=== PATIENT | female | born 1940 | race Caucasian/White ===

== ENCOUNTER 2016-07-18 19:03 | Inpatient (IN) | payer MEDICARE, BC ==
[~2016-07-18] VITALS: Ht 167.6 cm; Wt 72.4 kg
[2016-07-18] VITALS (15 sets, daily range): BP systolic 119–155; BP diastolic 52–74; PULSE 102–111; RESP 20–50; TEMP 99–100.4; O2SAT 89–96; Ht 167.6 cm; Wt 72.4 kg
[~2016-07-18 19:03] MED LIST: AMLO5TAB2 PO; ASCO-297 PO; CALC600T12 PO; CHOL100017 PO; CYCL5TAB PO; DABI150C PO; DOCU-168 PO; FLUT1DIS4 IH; HYDR-3989 PO; IPRA3AMP AEROSOL; LANS15CA5 PO; MAGN400O4 PO; MULT1CAP47 PO; ROFL500T PO; SIMV20TA89 PO; SOTA80TA PO; VITA1CAP64 PO; ZOLE5INF7 IV
--- NOTE | 2016-07-18 19:05 | NUR ---
HEARING AID PT'S HEARING AID PLACED IN PT'S PURSE, FRONT POCKET.
--- OUTSIDE RECORDS SUMMARY | 2016-07-18 19:07 | XMS REPORT | Referral Summary ---
Author Author [facility] Organization [facility] Address Unknown Phone Unavailable Care Team Providers Care Leadership Program Internship Name Role Phone Adriana Guzman Primary Care Physician [phone] Encounter [facility] [id number] Date(s): 02/05/15 - 02/05/15 [facility] [address] [place] [address] [place] [address] [facility] Discharge Diagnosis: Mixed hearing loss, bilateral Discharge Disposition: 01-Home or Self Care Attending Physician: Lois Miranda Admitting Physician: Lois Miranda Vital Signs No data available for this section Problem List Condition Effective Dates Status Health Status Informant Mixed hearing loss, Active bilateral(Confirmed) perforated bowel 2013 Active during colonoscopy(Roeser)( Confirmed) Allergies, Adverse Reactions, Alerts Substance Reaction Severity Status penicillin Anaphylaxis Active Medications No data available for this section Results No data available for this section Immunizations No data available for this section Procedures Procedure Date Related Diagnosis Body Site right hemicolectomy(Beck)1 1perforated bowel during colonoscopy (Roeser) 2013 Social History No data available for this section Assessment and Plan No data available for this section
--- OUTSIDE RECORDS SUMMARY | 2016-07-18 19:07 | XMS REPORT | Referral Summary ---
Author Author [facility] Organization [facility] Address Unknown Phone Unavailable Care Team Providers Care Induction Heating Equipment Setter Name Role Phone Adriana Guzman Primary Care Physician [phone] Encounter [facility] [id number] Date(s): 02/05/15 - 02/05/15 [facility] [address] [place] [address] [place] [address] [facility] Discharge Diagnosis: Mixed hearing loss, [...]
--- OUTSIDE RECORDS SUMMARY | 2016-07-18 19:07 | XMS REPORT | Referral Summary ---
Author Author [facility] Organization [facility] Address Unknown Phone Unavailable Care Team Providers Care Restaurant Maintenance Technician Name Role Phone Adriana Guzman Primary Care Physician [phone] Encounter Date(s): 04/23/15 - 04/23/15 [facility] [address] [place] [address] [place] [address] - Discharge Diagnosis: Mixed hearing loss, bilateral Discharge Disposition: 01-Home or Self Care Attending Physician: Lios Miranda Admitting Physician: Lois Miranda Referring Physician: Mark Alvarenga MD Vital Signs No data available for this [...]
--- OUTSIDE RECORDS SUMMARY | 2016-07-18 19:07 | XMS REPORT | Referral Summary ---
Author Organization Unknown Address Unknown Phone Unavailable Care Team Providers Care Associate Chemist Name Role Phone Adriana Guzman Primary Care Physician [phone] Encounter [facility] [id number] Date(s): 05/09/14 - 05/09/14 [facility] [place] [address] [place] [address] [place] [address] - Discharge Diagnosis: Mixed hearing loss, bilateral Discharge Disposition: Home or Self Care Attending Physician: Lois Miranda Admitting Physician: Lois Miranda Referring Physician: Flynn Guzman DO Vital Signs No data available for this section Problem List Condition Effective Dates Status Health Status Informant Mixed hearing loss, Active bilateral(Confirmed) Allergies, Adverse Reactions, Alerts Substance Reaction Severity Status penicillin Anaphylaxis Active Medications No data available for this section Results No data available for this section Immunizations No data available for this section Procedures No data available for this section Social History No data available for this section Assessment and Plan No data available for this section
--- OUTSIDE RECORDS SUMMARY | 2016-07-18 19:07 | XMS REPORT | Referral Summary ---
Author Author [facility] Organization [facility] Address Unknown Phone Unavailable Care Team Providers Care Eap Consultant Name Role Phone Adriana Guzman Primary Care Physician [phone] Encounter Date(s): 06/09/16 - 06/09/16 [facility] [address] [place] [address] [place] [address] - Discharge Diagnosis: Mixed hearing loss, bilateral Discharge Disposition: 01-Home or Self Care Attending Physician: Lois Miranda Admitting Physician: Lois Miranda Referring Physician: Mark Alvarenga MD Vital Signs No data available for this section Problem List Condition Effective Dates Status Health Status Informant Mixed hearing loss, Active bilateral(Confirmed) perforated bowel 2012 Active during colonoscopy(Roeser)( Confirmed) Allergies, Adverse Reactions, [...]
--- NOTE | 2016-07-18 19:10 | NUR ---
PROVIDER AT BEDSIDE
[2016-07-18] MEDS ORDERED: ALBUTEROL/IPRATROPIUM INHAL. 2.5mg-0.5mg/3ml Neb. AEROSOL ONE (19:15)
--- NOTE | 2016-07-18 19:21 | ERPDOC ---
Departure Disposition Decision Date: Jul 18, 2016 Disposition Decision Time: 20:40 (JEREMIE HOWARD APRN) Disposition: 02 TO [facility] Impression Impression (JEREMIE HOWARD APRN) Impression: Primary Impression: CAP (community acquired pneumonia) Additional Impression: Acute respiratory failure with hypoxia Severity: Moderate (JEREMIE HOWARD APRN) Condition: Improved Seen By: Mid-level only (JEREMIE HOWARD APRN) Referrals: ROMA HAQUE DO (Family) Problems/Meds/Labs Reviewed?: Yes Medications reviewed and manag: Yes (JEREMIE HOWARD APRN) Follow up care ordered?: Yes (admitted) Mental Status: Alert, Oriented (JEREMIE HOWARD APRN) HPI - Respiratory General General Stated Complaint: DIFF BREATHING Time Seen by Provider: 19:09 Source: patient, EMS Exam Limitations: no limitations (JEREMIE HOWARD APRN) Time Seen by Provider: 19:09 (AUGUSTRHONDA DO) HPI - Respiratory General Initial Comments Roseline is a 75 year old female who has a history of COPD and is o2 dependent normally at 4 liters/nc. Patient began having increased difficulty breathing today progressively around 1 pm. Takes nebulized treatments at home and they didn't seem to help anymore. This evening called 911 to bring her to the hospital to get checked out. On scene, Deli Manager reports sats 81% on 4 liters. She was increased to 10 liters after a nebulized treatment of albuterol and sats were then 96% although patient remained tachypneic. Patient reports some improvement after the treatment. SoluMedrol 125 mg was given IV en route. Denies any fevers recently. Did cough some yellow sputum this am. Denies chest pain. Did get flu shot this year. Occurred At: home Onset: Getting worse Prior Episodes/Possible Cause: frequent episodes, chronic episodes Modifying Factors: IMPROVES WITH: inhaler, nebulizer Associated Symptoms: cough, shortness of breath, DENIES: chest pain/soreness, fever/chills (JEREMIE HOWARD APRN) Allergies: Coded Allergies: Penicillins (Verified Allergy, Severe, 07/19/16) Lip and tongue swelling, neck edema Past History Past Medical History Metabolic: hypercholesterolemia, hypertension Cardiac: A-fib Respiratory: COPD, pneumonia GI: GERD, other (barretts esophagus) Musculoskeletal: back pain (HOWARD,JEREMIE OPHTHALMIC MEDICAL ASSISTANT) Surgical History General: back, other (bowel perf), tonsils Reproductive/: hysterectomy (ANITAJEREMIE OPHTHALMIC MEDICAL ASSISTANT) Family History Family PMH: FOUND: hypertension (HOWARDJEREMIE OPHTHALMIC MEDICAL ASSISTANT) Vaccines Hx Influenza Vaccination: Yes Hx Pneumococcal Vaccination: Yes (MARIETTA HOWARDARA OPHTHALMIC MEDICAL ASSISTANT) Social History Smoking Status: Former smoker Substance Use Type: does not use Alcohol Intake: none Household Members: family Current Occupational Status: retired (JEREMIE HOWARD OPHTHALMIC MEDICAL ASSISTANT) Review of Systems Constitutional Constitutional: DENIES: fever (HOWARD,JEREMIE OPHTHALMIC MEDICAL ASSISTANT) Cardiovascular Cardiac: dyspnea on exertion, DENIES: chest pain (HOWARD,JEREMIE OPHTHALMIC MEDICAL ASSISTANT) Pulmonary Respiratory: cough, dyspnea, sputum (yellow) (ANITAJEREMIE OPHTHALMIC MEDICAL ASSISTANT) GI Upper Abdomen: DENIES: vomiting Lower Abdomen: DENIES: diarrhea (HOWARD,JEREMIE OPHTHALMIC MEDICAL ASSISTANT) General: DENIES: dysuria (HOWARD,JEREMIE OPHTHALMIC MEDICAL ASSISTANT) Musculoskeletal General: DENIES: pain (MARIETTA HOWARDARA OPHTHALMIC MEDICAL ASSISTANT) Neurological General: DENIES: headache (HOWARDJEREMIE OPHTHALMIC MEDICAL ASSISTANT) All other Systems All Other Systems: Reviewed and Negative (MARIETTA HOWARDARA OPHTHALMIC MEDICAL ASSISTANT) Physical Exam General General Nourishment: well nourished, well developed, appears stated age, acute distress (moderate respiratory) (MARIETTA HOWARDARA OPHTHALMIC MEDICAL ASSISTANT) Vitals and Pain First Documented Vital Signs Date Time Temp Pulse Resp B/P Pulse Ox O2 Delivery O2 Flow Rate FiO2 07/18/16 19:05 99.0 120 32 170/82 83 Nasal Cannula 5.00 (AUGUST,RHONDA M DO) Vitals and Pain Weight: Kilograms: Height (feet): 5 Height (inches): 3.00 Triage Pain Scale: (HOWARD,JEREMIE OPHTHALMIC MEDICAL ASSISTANT) Eyes (brief) Eyes Brief: found: PERRL, not found: scleral icterus (ANITAJEREMIE OPHTHALMIC MEDICAL ASSISTANT) ENMT (brief) ENMT Brief: FOUND: mucosa moist, NOT FOUND: nasal exudate, pharnyx erythema ( HOWARD,JEREMIE OPHTHALMIC MEDICAL ASSISTANT) Neck (brief) Neck: FOUND: trachea midline, NOT FOUND: thyromegaly (HOWARDJEREMIE OPHTHALMIC MEDICAL ASSISTANT) Respiratory (brief) Respiratory: FOUND: other (diminished-tachypnea) (JEREMIE HOWARD OPHTHALMIC MEDICAL ASSISTANT) Cardiovascular (brief) Cardiac: FOUND: regular rate, regular rhythm (JEREMIE HOWARD APRN) Abdomen (brief) Abdominal Brief: FOUND: bowel normo active x4, soft, NOT FOUND: tender (JEREMIE HOWARD OPHTHALMIC MEDICAL ASSISTANT) Lymphatic (brief) Lymphatic Brief: NOT FOUND: lymphedema (JEREMIE HOWARD OPHTHALMIC MEDICAL ASSISTANT) Integumentary (brief) Integumentary Brief: FOUND: dry, pink, warm, NOT FOUND: rash (JEREMIE HOWARD OPHTHALMIC MEDICAL ASSISTANT) Psychiatric (brief) Psychiatric Brief: FOUND: alert, attentive, normal affect, oriented (JEREMIE HOWARD APRN) Differential Diagnoses Differential Diagnoses Considering: Acute Bronchitis, Acute ND, CHF, COPD Exacerbation, Viral Syndrome (JEREMIE HOWARD APRN) Progress Results/Orders Orders Procedure Category Date Status Time Bmp - Basic Metabolic LAB 07/18/16 Complete Panel 19:14 Probnp LAB 07/18/16 Complete 19:14 Cbc W/Auto LAB 07/18/16 Complete Diff-Reflex Manual 19:14 Troponin I W LAB 07/18/16 Complete Hemolysis Index 19:14 EKG EKG 07/18/16 Taken 19:14 Chest, Pa & Lateral RAD 07/18/16 Resulted 19:14 Iv Lock (Ed Only) EDM 07/18/16 Transmitted 19:14 Albuterol/Ipratropium PHA 07/18/16 Complete (Duoneb) 19:15 Oxygen Administration EDM 07/18/16 Transmitted 19:14 Blood Gas, Arterial - LAB 07/18/16 Complete ABG Lactate - Lactic Acid LAB 07/18/16 Complete Lactate - Lactic Acid LAB 07/19/16 Complete 00:35 Blood Culture RAOUL 07/18/16 In Process 20:05 Procalcitonin LAB 07/18/16 Complete 20:12 Levofloxacin 750 Mg PHA 07/18/16 Complete Ivpb (Levaquin 750 M 20:30 Normal Saline (Normal PHA 07/18/16 Complete Saline Iv) 20:45 Place In Facility As: ADMIT 07/18/16 Transmitted Ua, Dip Wreflex LAB 07/18/16 Complete Microsc & Fiscal Accountant 20:51 (AUGUST,RHONDA M DO) Lab Results Laboratory Tests Test 07/18/16 19:34 07/18/16 20:15 07/18/16 20:19 White Blood Count 17.7T/MM3 Red Blood Count 4.53M/MM3 Hemoglobin 13.2GM/DL Hematocrit 42.1% Mean Corpuscular Volume 92.9UM3 Mean Corpuscular Hemoglobin 29.1UUG Mean Corpuscular Hemoglobin Concent 31.4GM/DL RDW Standard Deviation 46.6FL Platelet Count 222T/MM3 Mean Platelet Volume 9.8UM3 Immature Granulocyte % (Auto) % Neutrophils (%) (Auto) % Lymphocytes (%) (Auto) % Monocytes (%) (Auto) % Eosinophils (%) (Auto) % Basophils (%) (Auto) % Absolute Immature Granulocyte (auto T/MM3 Absolute Neutrophils (auto) T/MM3 Absolute Lymphocytes (auto) T/MM3 Absolute Monocytes (auto) T/MM3 Absolute Eosinophils (auto) T/MM3 Absolute Basophils (auto) T/MM3 Neutrophils % (Manual) 86.0% Band Neutrophils % 2.0% Lymphocytes % (Manual) 9.0% Monocytes % (Manual) 2.0% Eosinophils % (Manual) 1.0% Absolute Neutrophils (Manual) 15.2T/MM3 Band Neutrophils # 0.4T/MM3 Lymphocytes # (Manual) 1.6T/MM3 Monocytes # (Manual) 0.4T/MM3 Eosinophils # (Manual) 0.2T/MM3 Red Cell Morphology Comment Normal Turbidity < 20 Sodium Level 147MEQ/L Potassium Level 4.1MEQ/L Chloride Level 104MEQ/L Carbon Dioxide Level 32MEQ/L Anion Gap 11MEQ/L Blood Urea Nitrogen 13.0MG/DL Creatinine 0.6MG/DL Glomerular Filtration Rate Calc 98 BUN/Creatinine Ratio 22RATIO Glucose Level 139MG/DL Calculated Osmolality 284MOSM/KG Calcium Level 9.7MG/DL Icterus Index < 2 Troponin I < 0.012ng/ml WF-Pkf-N-Type Natriuretic Peptide 318PG/ML Chemistry Specimen Hemolysis < 15 Arterial Blood pH 7.440 Arterial Blood Partial Pressure CO2 44MMHG Arterial Blood pO2 at Patient Temp 71MMHG Arterial Blood HCO3 30MEQ/L Arterial Blood Total CO2 31.3MEQ/L Arterial Blood Oxygen Saturation 95.0% Arterial Blood Base Excess 5.1MMOL/L Oxygen Delivery Method (LAB) Nrb mask, % Blood Gas Oxygen Liter Flow 10 Blood Gas Oxygen Percent Given Blood Gas Vent Rate Blood Gas Tidal Volume ML Plasma Lactate 1.5MMOL/L Procalcitonin < 0.05NG/ML () Medications Current ED Medications Albuterol/ Ipratropium 3 ml 3 ml O ONCE AEROSOL Last administered on 07/18/16 19:37; Start 07/18/16 at 19:15; Stop 07/18/16 at 19:17; Status DC Levofloxacin 750 mg/Dextrose/Water 150 ml @ 100 mls/hr O ONCE IV Last administered on 07/18/16 20:45; Start 07/18/16 at 20:30; Stop 07/19/16 at 06:22; Status DC Sodium Chloride (Normal Saline IV) 1,000 ml @ 999 mls/hr Q1H1M ONCE IV Last administered on 07/18/16 20:49; Start 07/18/16 at 20:45; Stop 07/19/16 at 06:21; Status DC () Progress Progress 2039 - Patient is somewhat better- able to answer questions in few words now but remains tachypneic with o2 at 10 liters to maintain in 90s. Full Code verified by patient-indicates would want intubated if necessary. bolus saline started (1 liter)-no prior history CHF. Lactate, procal pending. BC ordered. Levaquin 750 mg ordered. (JEREMIE HOWARD APRN) EKG EKG : Rate: >100 Rhythm: sinus [place]: normal QRS: normal Intervals: normal ST/T: depressed (v4-v5) Interpreted by: signing physician (JEREMIE HOWARD APRN) Consult/PCP Consult/PCP : Physician Contacted: Ihsan Time Called: 20:30 Time of first response: 20:32 Type of discussion: Admit Discussion/PCP Discussion Details Admit CCU (JEREMIE HOWARD APRN) Xray Xray : Xray: CXR PA/Lat Interpretation: Abnormal (increased intraparenchymal infiltrates), Interpreted by Me (JEREMIE HOWARD APRN) JEREMIE HOWARD APRN Jul 18, 2016 19:21 AUGUST,RHONDA Suh Jul 21, 2016 03:46
[2016-07-18] MEDS ORDERED: IPRA3AMP AEROSOL (19:34)
[2016-07-18] MEDS ORDERED: AMLO10TA2 PO (19:34)
--- NOTE | 2016-07-18 19:35 | NUR ---
RT TO BEDSIDE
[2016-07-18 19:48] LABS: ANION GAP 11 MEQ/L (5-15); BUN/CREATININE RATIO 22 RATIO (6-26); CALCIUM 9.7 MG/DL (8.4-10.2); CHLORIDE 104 MEQ/L (98-107); CO2 - CARBON DIOXIDE 32 MEQ/L (22-30); CREATININE 0.6 MG/DL (0.7-1.2); GLOMERULAR FILTRATION RATE 98; GLUCOSE 139 MG/DL (65-110); POTASSIUM 4.1 MEQ/L (3.6-5); SODIUM 147 MEQ/L (134-144)
[2016-07-18 19:49] LABS: HCT - HEMATOCRIT 42.1 % (36-46); HGB - HEMOGLOBIN 13.2 GM/DL (12-16); MEAN CORPUSCULAR HGB 29.1 UUG (26-34); MEAN CORPUSCULAR HGB CONC(MCHC 31.4 GM/DL (31-37); MEAN CORPUSCULAR VOLUME 92.9 UM3 (80-100); MEAN PLATELET VOLUME 9.8 UM3 (9.4-12.4); RED BLOOD COUNT 4.53 M/MM3 (4.00-5.20); WBC - WHITE BLOOD COUNT 17.7 T/MM3 (4.5-11.0)
--- NOTE | 2016-07-18 19:50 | NUR ---
IMAGING PT TO IMAGING VIA CART AT THIS TIME. O2 AND NON-REBREATHER IN PLACE. PT AOX3.
--- NOTE | 2016-07-18 20:00 | NUR ---
IMAGING PT RETURN FROM IMAGING VIA CART. [address] PT AOX3. DENIES NEEDS AT THIS TIME.
[2016-07-18 20:03] LABS: BAND NEUTROPHILS # 0.4 T/MM3; EOSINOPHILS # (MANUAL) 0.2 T/MM3 (0-0.5); LYMPHOCYTES # (MANUAL) 1.6 T/MM3 (1-4.8); MONOCYTES # (MANUAL) 0.4 T/MM3 (0-0.8); NEUTROPHILS #(MANUAL)-ABSOLUTE 15.2 T/MM3 (1.8-7.7); TOTAL CELLS COUNTED 100 %
--- NOTE | 2016-07-18 20:05 | NUR ---
RT RT TO BEDSIDE FOR ABG
[2016-07-18 20:11] LABS: PROBNP 318 PG/ML (0-175)
--- NOTE | 2016-07-18 20:18 | NUR ---
PROVIDER AT BEDSIDE
[2016-07-18] MEDS ORDERED: LEVOFLOXACIN 750 mg IVPB 750 MG in D5W 150 ML IV ONE (20:30)
[2016-07-18] MEDS ORDERED: NORMAL SALINE 1,000 ML IV ONE (20:45)
[2016-07-18 20:58] LABS: BLOOD, URINE TRACE-LYSED (NEGATIVE); COLOR,URINE YELLOW (YELLOW); LEUKOCYTE ESTERASE ,URINE NEGATIVE (NEGATIVE); NITRITE,URINE NEGATIVE (NEGATIVE); UROBILINOGEN,URINE 0.2 EU/DL (NORMAL)
[2016-07-18] MEDS ORDERED: DiphenhydrAMINE 50 MG/ML INJECTION IV ONE (21:15)
[2016-07-18] MEDS ORDERED: MORPHINE SULFATE 2 MG SYRINGE IV PRN (21:30)
[2016-07-18] MEDS ORDERED: MILK OF MAGNESIA 30 ML SUSP PO PRN (21:30)
[2016-07-18] MEDS ORDERED: PROMETHAZINE 25 MG INJECTION IV PRN (21:30)
--- NOTE | 2016-07-18 21:30 | NUR ---
ADMIT TO CCU PT TO CCU #2 AT THIS TIME. PT INDEPENDENTLY TRANSFERRED FROM CART TO WHEEL CHAIR TO CCU BED. AOX3. 10L/NONREBREATHER. IV ANTIBIOTICS INFUSING. RN TO ASSUME CARE AT BEDSIDE. FAMILY AT BEDSIDE.
--- NOTE | 2016-07-18 21:30 | NUR ---
ADMIT TO CCU 2 PER W/C. PT ALERT AND ORIENT BUT SOA. ON NONREBREATHER MASK. HOB UP. SISTERS WITH PT.
--- NOTE | 2016-07-18 22:00 | NUR ---
TELEMEDICINE SAW PT. PT WAS ABLE TO TALK WITH DR ESCOBAR. GIVEN STATUS REPORT.ON 02 6L/NC AT PRESENT. SATS 90-91%
--- NOTE | 2016-07-18 22:22 | HPPDOC ---
BRITTA MONCADA MD 07/18/16 2222: HPI - Adult Date DATE: 07/18/16 TIME: 22:21 General Chief Complaint: shortness of breath History of Present Illness Very pleasant 75-year-old white female who was in her usual state of health until today. She woke this morning, had a minimal amount of sputum, later on today around 1 PM she began having increasing weakness of breath. She denies any increasing sputum at that time, she admits to orthopnea but that is not new and she baseline has fairly significant dyspnea on exertion. She tried nebulized bronchodilators at home but did not improve. She lives with her [id number]-mup, he called 911, and they found her to be saturating 81% on 4 L, she is at baseline on 4 L typically. En route she received 2 more nebulized bronchodilator treatments and the dose of Solu-Medrol. Upon arrival to the emergency room she was needing 10.5 L of oxygen to maintain her sats are 90%. She denies any chest pain, she denies knowledge of fever prior to this evening, she has minimal sputum production she did feel cold. At baseline she has some significant back pain from previous spinal disease but nothing beyond her baseline. After treatments in the emergency room and EMS she does feel better but is still not sure how good she would feel with walking. She does have a pulmonary physician, she uses BiPAP to sleep with it only needs the 4 L of oxygen, no more. In the emergency room blood cultures were drawn and she was she has not yet taken her evening medications Past Medical History Past Medical History COPD on 4 L of oxygen at baseline quit smoking 5 years ago 70-gfic-btvo history atrial fibrillation (on dabigatran for stroke prophylaxis) chronic back pain issues with hx compression fx and disc herniation s/p surgery HTN GERD hyperlipidemia Surgical History Patient's Surgical History: back surgery - disc(?) and vertebroplasty ruptured viscous during colonoscopy required ex lap Current Medications Home Meds Reported Medications Amlodipine Besylate (Amlodipine Besylate) 10 Mg Tablet, 10 MG PO DAILY 07/18/16 Ipratropium/Albuterol Sulfate (Iprat-Albut 0.5-3(2.5) mg/3 ml) 3 Ml Ampul.neb, 1 UNIT AEROSOL QID 07/18/16 Lansoprazole (Prevacid) 15 Mg Capsule.dr, 15 MG PO DAILY 11/30/15 Calcium Carbonate (Calcium) 600 Mg Tablet, 1200 MG PO DAILY 11/23/15 Dabigatran Etexilate Mesylate (Pradaxa) 150 Mg Capsule, 150 MG PO BID 11/23/15 Zoledronic Acid (Reclast 5 mg/100 ml Solution) 5 Mg/100 Ml Ml, 100 ML IV YEARLY 11/23/15 Sotalol HCl (Sotalol) 80 Mg Tablet, 80 MG PO BID 11/23/15 Roflumilast (Daliresp) 500 Mcg Tablet, 500 MCG PO DAILY 12/23/12 Cholecalciferol (Vitamin D) 1,000 Unit Tablet, 1000 UNIT PO DAILY 12/22/12 Simvastatin (Simvastatin) 20 Mg Tablet, 20 MG PO HS 06/08/12 Vitamin B Complex (Vitamin B Complex) 1 Cap Capsule, 1 CAP PO DAILY 11/29/08 Ascorbic Acid (Vitamin C) 1,000 Mg Tablet, 1000 MG PO DAILY 11/29/08 Multivitamins W-Minerals (Multivitamin) 1 Cap Capsule, 1 CAP PO DAILY 11/29/08 Fluticasone/Salmeterol (Advair 250/50) 28 Puff/Disk Inhaler, 2 PUFF IH BID 11/29/08 Allergies: Coded Allergies: Penicillins (Verified Allergy, Unknown, 07/19/16) Family History Family History: asked and N/c Social History Smoking Status: Former smoker Substance Use Type: does not use Alcohol Intake: none Marital Status: Household Members: family Current Occupational Status: retired Advance Directives: Yes Full Code Review of Systems All Other Systems All Other Systems: Reviewed Physical Exam General General Nourishment: apparent age Vital Signs Vital Signs Date Time Temp Pulse Resp B/P Pulse Ox O2 Delivery O2 Flow Rate FiO2 07/18/16 22:08 91 Nasal Cannula 6.00 07/18/16 21:40 99.0 108 20 143/67 Height (Feet): 5 Height (Inches): 6.00 Telemetry Rhythm: Sinus Tachycardia Eyes Brief: FOUND: PERRL Respiratory Brief: FOUND: equal bilaterally Comments impaired air movement mod/severe she is tachycardic, tachypnea, but not using accessory muscles Cardiovascular (brief) Cardiac Brief: NOT FOUND: pedal edema Capillary Refill: <2 sec Comments tachy PVCs on ekg Abdomen (brief) Abdominal Brief: FOUND: BS normo active x4, soft, NOT FOUND: tender Musculoskeletal (brief) Musculoskeletal Brief: NOT FOUND: spasm, tenderness Neurologic (brief) Neurological Brief: FOUND: cranial 2-12 intact, motor, NOT FOUND: facial droop Neurologic RN Documented GCS Eye Opening: Verbal: Motor: Total: Psychiatric (brief) FOUND: alert, normal affect, oriented Comments beginning in complete sentences without obvious apparent shortness of breath Laboratory Laboratory Tests Test 07/18/16 19:34 07/18/16 20:15 07/18/16 20:19 07/18/16 20:54 White Blood Count 17.7T/MM3 Red Blood Count 4.53M/MM3 Hemoglobin 13.2GM/DL Hematocrit 42.1% Mean Corpuscular Volume 92.9UM3 Mean Corpuscular Hemoglobin 29.1UUG Mean Corpuscular Hemoglobin Concent 31.4GM/DL RDW Standard Deviation 46.6FL Platelet Count 222T/MM3 Mean Platelet Volume 9.8UM3 Immature Granulocyte % (Auto) % Neutrophils (%) (Auto) % Lymphocytes (%) (Auto) % Monocytes (%) (Auto) % Eosinophils (%) (Auto) % Basophils (%) (Auto) % Absolute Immature Granulocyte (auto T/MM3 Absolute Neutrophils (auto) T/MM3 Absolute Lymphocytes (auto) T/MM3 Absolute Monocytes (auto) T/MM3 Absolute Eosinophils (auto) T/MM3 Absolute Basophils (auto) T/MM3 Neutrophils % (Manual) 86.0% Band Neutrophils % 2.0% Lymphocytes % (Manual) 9.0% Monocytes % (Manual) 2.0% Eosinophils % (Manual) 1.0% Absolute Neutrophils (Manual) 15.2T/MM3 Band Neutrophils # 0.4T/MM3 Lymphocytes # (Manual) 1.6T/MM3 Monocytes # (Manual) 0.4T/MM3 Eosinophils # (Manual) 0.2T/MM3 Red Cell Morphology Comment Normal Turbidity < 20 Sodium Level 147MEQ/L Potassium Level 4.1MEQ/L Chloride Level 104MEQ/L Carbon Dioxide Level 32MEQ/L Anion Gap 11MEQ/L Blood Urea Nitrogen 13.0MG/DL Creatinine 0.6MG/DL Glomerular Filtration Rate Calc 98 BUN/Creatinine Ratio 22RATIO Glucose Level 139MG/DL Calculated Osmolality 284MOSM/KG Calcium Level 9.7MG/DL Icterus Index < 2 Troponin I < 0.012ng/ml HK-Jvn-N-Type Natriuretic Peptide 318PG/ML Chemistry Specimen Hemolysis < 15 Arterial Blood pH 7.440 Arterial Blood Partial Pressure CO2 44MMHG Arterial Blood pO2 at Patient Temp 71MMHG Arterial Blood HCO3 30MEQ/L Arterial Blood Total CO2 31.3MEQ/L Arterial Blood Oxygen Saturation 95.0% Arterial Blood Base Excess 5.1MMOL/L Oxygen Delivery Method (LAB) Nrb mask, % Blood Gas Oxygen Liter Flow 10 Blood Gas Oxygen Percent Given Blood Gas Vent Rate Blood Gas Tidal Volume ML Plasma Lactate 1.5MMOL/L Procalcitonin < 0.05NG/ML Urine Collection Type Urine Color Yellow Urine Turbidity Clear Urine pH 5.0 Urine Specific Callaway 1.020 Urine Protein Trace Urine Glucose (UA) Negative Urine Ketones 1+ Urine Blood Trace-lysed Urine Nitrite Negative Urine Bilirubin Negative Urine Urobilinogen 0.2EU/DL Urine Leukocyte Esterase Negative Urinalysis Comment Microscopic not ind. EKG reviewed, sinus tach with PVCs, did not note any acute ST-T wave changes Radiology I personally reviewed, is cardiomegaly, hyperexpanded lungs, I question of some pulmonary edema possibly versus some pulmonary fibrosis. Formal interpretation by radiology is pending. Please review that report once it is available Concerns For Adverse Events is needing initially much more oxygen than her baseline. She is doing well, is quite ill in general. I'm concerned she could be becoming septic, but technically does not meet criteria for sepsis at this time. Sepsis Diagnostic Criteria Sepsis Confirmed/Suspected Infection: Yes SIRS Criteria: Pulse >= 90 beats/min, WBC >=12,000 or <=4,000, RR > or = to 20 Severe Sepsis SpO2 <90% or ventilated Assessment & Plan Problems: (1) Acute respiratory failure with hypoxia Status: Acute Assessment & Plan: Her oxygen requirements were markedly higher than baseline at 10 L she is to get, and her ABG is notable. Fortunately. Continue IV steroids treatment for pneumonia and nebulized bronchodilators. BiPAP this evening should help things as well. SHe is currently a full code, (2) EXACERBATION COPD Status: Acute Assessment & Plan: IV solumedrol and nebs, abx (3) CAP (community acquired pneumonia) Status: Acute Assessment & Plan: possibly a retrocardiac/LLL infiltrate? IV levaquin x 1 so far, I am anxious re: QTc, and her being on sotalol has allergy to PCN but not sure The severity of reaction. Continue tx then with Invanz and monitor, confirm any hx anaphylaxis w PCN (4) Paroxysmal a-fib Status: Chronic Assessment & Plan: continue home meds, sotalol, pradaxa. (5) HTN (hypertension) Status: Chronic Code Status Full Code Hospital Course Summary Disclaimer The hospital course summary below is not to be considered part of the above Progress Note. BRE BREWSTER MD 07/19/16 1328: Past Medical History Current Medications Home Meds Reported Medications Amlodipine Besylate (Amlodipine Besylate) 10 Mg Tablet, 10 MG PO DAILY 07/18/16 Ipratropium/Albuterol Sulfate (Iprat-Albut 0.5-3(2.5) mg/3 ml) 3 Ml Ampul.neb, 1 UNIT AEROSOL QID 07/18/16 Lansoprazole (Prevacid) 15 Mg Capsule.dr, 15 MG PO DAILY 11/30/15 Calcium Carbonate (Calcium) 600 Mg Tablet, 1200 MG PO DAILY 11/23/15 Dabigatran Etexilate Mesylate (Pradaxa) 150 Mg Capsule, 150 MG PO BID 11/23/15 Zoledronic Acid (Reclast 5 mg/100 ml Solution) 5 Mg/100 Ml Ml, 100 ML IV YEARLY 11/23/15 Sotalol HCl (Sotalol) 80 Mg Tablet, 80 MG PO BID 11/23/15 Roflumilast (Daliresp) 500 Mcg Tablet, 500 MCG PO DAILY 12/23/12 Cholecalciferol (Vitamin D) 1,000 Unit Tablet, 1000 UNIT PO DAILY 12/22/12 Simvastatin (Simvastatin) 20 Mg Tablet, 20 MG PO HS 06/08/12 Vitamin B Complex (Vitamin B Complex) 1 Cap Capsule, 1 CAP PO DAILY 11/29/08 Ascorbic Acid (Vitamin C) 1,000 Mg Tablet, 1000 MG PO DAILY 11/29/08 Multivitamins W-Minerals (Multivitamin) 1 Cap Capsule, 1 CAP PO DAILY 11/29/08 Fluticasone/Salmeterol (Advair 250/50) 28 Puff/Disk Inhaler, 2 PUFF IH BID 11/29/08 Allergies: Coded Allergies: Penicillins (Verified Allergy, Unknown, 4/8/17) Sepsis Diagnostic Criteria Sepsis SIRS Criteria: Temp<=96.8 or >=100.4, Bands >= 10% Assessment & Plan Problems: (1) Acute and chronic respiratory failure with hypoxia Status: Acute (2) Severe sepsis (3) CAP (community acquired pneumonia) Status: Acute (4) EXACERBATION COPD Status: Acute (5) HTN (hypertension) Status: Chronic (6) Paroxysmal a-fib Status: Chronic (7) GERD (gastroesophageal reflux disease) Qualifiers: Esophagitis presence: with esophagitis Qualified Codes: K21.0 - Gastro- esophageal reflux disease with esophagitis Assessment Dr. Champagne's note reviewed. Patient interviewed and examined. CC-dyspnea HPI-Mrs. Morrison is a 75-year-old female with a history of COPD requiring home oxygen and nocturnal BiPAP. She developed progressive cough and exertional dyspnea yesterday without associated rhinorrhea, nasal congestion, sore throat, fever, chest pain, palpitations, or significant sputum production. She has chronic exertional dyspnea but symptoms worsened dramatically to dyspnea at rest and did not respond to nebulized treatments. Hypoxia was present when EMS arrived at her home yesterday evening requiring increasing oxygen from 4 L to 10 L. Overnight patient notes dyspnea has stabilized at rest but she remained short of breath with minimal activity including providing history or sitting on the edge of the bed. She reports low-grade fever overnight and feeling cold intermittently prior to hospitalization. Sputum production has increased overnight with purulent secretions. PH/SH/FH-above histories noted and as recorded with following additions: Osteoporosis, Connor's esophagus, paroxysmal atrial fibrillation, HEMANT/BSO-1999 , back surgery-, right hemicolectomy for cecal perforation March 2013. Tobacco discontinued 5 years ago, lives with extended family members. No DPOA/ full code. Extensive family history of coronary disease, sister with Crohn's, brother with COPD and further with colon cancer. ROS-comprehensive review of systems completed with patient described and chronic back pain and nausea 2 or 3 days prior to hospitalization which subsequently resolved. Remainder of review as per history of present illness or negative. EXAM [id number]-782.4, oxygen saturation 93% on 5 L, respiratory rate 30-39, slightly breathless while speaking, alert and cooperative HEENT-mild conjunctival injection, EOMI, PERRLA, conjugate gaze, sclera anicteric, facial structure symmetric, oral membranes clear and without exudate , tongue midline, neck supple without adenopathy Lungs-mild tachypnea, fair air flow with decreased breath sounds throughout, crackles at the bases bilaterally L>R and coarse breath sounds at the left base. No wheezing present at the time of my exam. Cardiac-regular rhythm, S1-S2 Abd-soft, nontender, no palpable mass, bowel sounds present Ext-without edema Skin-without rash Neuro-cranial nerves III through XII intact, motor tone and power within normal limits, no tremor, sensation intact to light touch 4 extremities Psych-calm, cooperative Chest x-ray reviewed by myself demonstrating infiltrate at the left base. White count 17.7 with 2% bands on admission, 11% bands present this morning. Sodium 147, creatinine 0.6, troponin undetectable, proBNP 138. Lactic acid 1.5 and 1.3. Blood gas 7.44/44/71/30 95% saturation on 10 L by nonrebreather mask EKG sinus rhythm without acute changes. Community acquired pneumonia with COPD exacerbation, acute on chronic hypoxic respiratory failure, and severe sepsis present on admission. Continue antibiotics as previously discussed. Patient describes penicillin causing swelling of her lips, tongue, and neck. Sputum culture to be obtained in addition to blood cultures drawn last night. Legionella and strep pneumonia urine antigens to be sent. Continue aggressive breathing treatments, steroids, oxygen and BiPAP as needed/ bedtime. Home medications for hypertension, reflux/Connor's, and history of atrial fibrillation resumed. Given improvement in oxygenation overnight-transfer the floor. Patient seen in cross coverage for Dr. Guzman. DVT Prophylaxis: other (Pradaxa) BRITTA MONCADA MD Jul 18, 2016 22:22 BRE BREWSTER MD Jul 19, 2016 13:28
[2016-07-18] MEDS ORDERED: SOTALOL 80 MG TABLET PO SCH (22:30)
--- NOTE | 2016-07-18 22:35 | NUR ---
OUTPUT UP TO COMMODE WITH ASSIST. MORE SOA WHEN UP. VOIDED 200CC.
[2016-07-18] MEDS: FLUTICASONE/SALMETEROL 250/50 DISK INHALER ORAL INH SCH (23:14)
[2016-07-18] MEDS: SIMVASTATIN 20 MG TABLET PO SCH (23:20)
[2016-07-18] MEDS: DABIGATRAN 150 MG CAPSULE PO SCH (23:21)
[2016-07-18] MEDS: HYDROCODONE/APAP 5 mg/325 mg TABLET PO PRN (23:24)
[2016-07-19] VITALS (41 sets, daily range): BP systolic 107–156; BP diastolic 53–85; PULSE 78–113; RESP 18–46; TEMP 96.8–98.9; O2SAT 88–97
[2016-07-19] MEDS: NORMAL SALINE 1,000 ML IV SCH ×2 (00:13→22:08)
--- NOTE | 2016-07-19 06:00 | NUR ---
STATUS STATES BACK PAIN IS GONE BUT NOT SLEEP WELL. REMAINS ON BIPAP AT 30%. SOA WITH ANY ACTIVITY. LOOSE SOUNDING COUGH, OCC PRODUCTIVE, YELLOW SPUTUM.
[2016-07-19] MEDS: SOTALOL 80 MG TABLET PO SCH ×2 (07:23→19:51)
[2016-07-19] MEDS: ALBUTEROL/IPRATROPIUM INHAL. 2.5mg-0.5mg/3ml Neb. AEROSOL SCH ×4 (07:32→21:03)
--- NOTE | 2016-07-19 07:45 | NUR ---
Bipap off to evaluate status and so patient can go to toilet at bedside.
[2016-07-19] MEDS: ROFLUMILAST 500 MCG TABLET PO SCH (08:48)
[2016-07-19] MEDS: DABIGATRAN 150 MG CAPSULE PO SCH ×2 (08:49→19:51)
[2016-07-19] MEDS: VITAMIN B COMP + C TABLET PO SCH (08:51)
[2016-07-19] MEDS: AMLODIPINE 10 MG TABLET PO SCH (08:52)
[2016-07-19] MEDS: CALCIUM CARBONATE 600 MG TABLET PO SCH (08:59)
[2016-07-19] MEDS: CHOLECALCIFEROL 1,000 UNIT TABLET PO SCH (09:00)
[2016-07-19] MEDS: ERTAPENEM 1 G in NORMAL SALINE 100 ML IV SCH (09:02)
[2016-07-19] MEDS: LANSOPRAZOLE SOLU-TAB 15 MG TABLET PO SCH (09:15)
--- NOTE | 2016-07-19 10:29 | NUR ---
CM THIS WORKER MET WITH PT AT THIS TIME. NO OTHERS PRESENT AT THIS TIME. PT REPORTED THAT HE WAS PLANNING TO RETURN HOME WHEN DISCHARGED. PT REPORTED THAT SHE HAS A BROTHER IN LAW THAT ALSO LIVES WITH HER. THIS WORKER INQUIRED REGARDING NEED FOR DME OR HOME HEALTH. PT INQUIRED REGARDING HOME HEALTH SERVICES. PT IS PLANNING TO CONSIDER HOME HEALTH. PT REPORTED THAT SHE HAS OXYGEN SUPPLY AT HOME THROUGH [facility]. THIS WORKER PROVIDED CONTACT INFORMATION FOR PT AND ENCOURAGED TO CONTACT THIS WORKER WITH ANY NEEDS.
[2016-07-19 10:57] LABS: HCT - HEMATOCRIT 38.3 % (36-46); HGB - HEMOGLOBIN 12.1 GM/DL (12-16); MEAN CORPUSCULAR HGB 29.4 UUG (26-34); MEAN CORPUSCULAR HGB CONC(MCHC 31.6 GM/DL (31-37); MEAN CORPUSCULAR VOLUME 93.2 UM3 (80-100); MEAN PLATELET VOLUME 10.8 UM3 (9.4-12.4); RED BLOOD COUNT 4.11 M/MM3 (4.00-5.20); WBC - WHITE BLOOD COUNT 17.4 T/MM3 (4.5-11.0)
[2016-07-19] MEDS: FLUTICASONE/SALMETEROL 250/50 DISK INHALER ORAL INH SCH ×2 (11:00→21:04)
[2016-07-19 11:07] LABS: ALBUMIN/GLOBULIN RATIO 1.5 RATIO (1.1-2.2); ALKALINE PHOSPHATASE 50 U/L (38-126); ALT (SGPT) 23 U/L (9-52); ANION GAP 15 MEQ/L (5-15); AST (SGOT) 15 U/L (14-36); BUN/CREATININE RATIO 14 RATIO (6-26); CHLORIDE 105 MEQ/L (98-107); CO2 - CARBON DIOXIDE 27 MEQ/L (22-30); CREATININE 0.7 MG/DL (0.7-1.2); GLOMERULAR FILTRATION RATE 82; GLUCOSE 200 MG/DL (65-110); POTASSIUM 4.2 MEQ/L (3.6-5); SODIUM 147 MEQ/L (134-144); TOTAL PROTEIN 6.6 G/DL (6.3-8.2)
[2016-07-19 11:15] LABS: BAND NEUTROPHILS # 1.9 T/MM3; LYMPHOCYTES # (MANUAL) 0.5 T/MM3 (1-4.8); MONOCYTES # (MANUAL) 0.7 T/MM3 (0-0.8); NEUTROPHILS #(MANUAL)-ABSOLUTE 14.3 T/MM3 (1.8-7.7); TOTAL CELLS COUNTED 100 %
--- NOTE | 2016-07-19 11:25 | NUR ---
Status Does own AM care, has been using bedside commode. ON 5L NC at this time.
--- NOTE | 2016-07-19 12:30 | NUR ---
Eats well, deneis severe pain, has some chronic back pain.
[2016-07-19] MEDS ORDERED: ALBUTEROL/IPRATROPIUM INHAL. 2.5mg-0.5mg/3ml Neb. AEROSOL PRN (13:30)
--- NOTE | 2016-07-19 17:25 | NUR ---
Transferred to Medical unit per wheelchair, tolerates well. Family with patient.
--- NOTE | 2016-07-19 17:25 | NUR ---
ARRIVAL PATIENT ARRIVED VIA WHEELCHAIR FROM CCU ACCOMPANIED BY FAMILY AND CCU RN. PATIENT IN NO ACUTE DISTRESS ON 5L O2 PER NC. PATIENT DENIES NEEDS AT THIS TIME. WILL CONTINUE TO MONITOR.
[2016-07-19] MEDS: HYDROCODONE/APAP 5 mg/325 mg TABLET PO PRN (19:42)
[2016-07-19] MEDS: SIMVASTATIN 20 MG TABLET PO SCH (19:51)
[2016-07-20] VITALS (10 sets, daily range): BP systolic 132–153; BP diastolic 71–82; PULSE 72–112; RESP 16–20; TEMP 95.9–98.1; O2SAT 92–98
--- NOTE | 2016-07-20 03:52 | NUR ---
SUMMARY PT ALERT AND ORIENTED. VITAL SIGNS STABLE. AMBULATORY WITH ASSIST OF ONE. IV IN THE RIGHT FOREARM, RUNNING NS @ 100 ML/HR. REPORTS PAIN IN HER BACK 07/21, PRN NORCO GIVEN ORDERED, PT STATES PAIN IS ONLY SLIGHTLY RELIEVED NOW RATES AT 06/20. PT IS WEARING HOME BIPAP WITH 5 LITERS O2. PT DE-SATS WITH ACTIVITY, BUT RECOVERS QUICKLY.
[2016-07-20 06:44] LABS: HCT - HEMATOCRIT 37.1 % (36-46); HGB - HEMOGLOBIN 11.6 GM/DL (12-16); MEAN CORPUSCULAR HGB 29.3 UUG (26-34); MEAN CORPUSCULAR HGB CONC(MCHC 31.3 GM/DL (31-37); MEAN CORPUSCULAR VOLUME 93.7 UM3 (80-100); MEAN PLATELET VOLUME 11.4 UM3 (9.4-12.4); RED BLOOD COUNT 3.96 M/MM3 (4.00-5.20)
[2016-07-20] MEDS: SOTALOL 80 MG TABLET PO SCH ×2 (06:49→20:08)
[2016-07-20 06:50] LABS: ANION GAP 11 MEQ/L (5-15); BUN/CREATININE RATIO 34 RATIO (6-26); CALCIUM 8.9 MG/DL (8.4-10.2); CHLORIDE 107 MEQ/L (98-107); CO2 - CARBON DIOXIDE 28 MEQ/L (22-30); CREATININE 0.5 MG/DL (0.7-1.2); GLOMERULAR FILTRATION RATE 121; GLUCOSE 169 MG/DL (65-110); POTASSIUM 4.1 MEQ/L (3.6-5); SODIUM 146 MEQ/L (134-144)
[2016-07-20 07:08] LABS: BAND NEUTROPHILS # 0.2 T/MM3; LYMPHOCYTES # (MANUAL) 1.1 T/MM3 (1-4.8); MONOCYTES # (MANUAL) 0.5 T/MM3 (0-0.8); NEUTROPHILS #(MANUAL)-ABSOLUTE 10.2 T/MM3 (1.8-7.7); TOTAL CELLS COUNTED 100 %
[2016-07-20] MEDS: ALBUTEROL/IPRATROPIUM INHAL. 2.5mg-0.5mg/3ml Neb. AEROSOL SCH ×4 (07:59→19:47)
[2016-07-20] MEDS: CALCIUM CARBONATE 600 MG TABLET PO SCH (08:20)
[2016-07-20] MEDS: ERTAPENEM 1 G in NORMAL SALINE 100 ML IV SCH (08:20)
[2016-07-20] MEDS: VITAMIN B COMP + C TABLET PO SCH (08:20)
[2016-07-20] MEDS: AMLODIPINE 10 MG TABLET PO SCH (08:20)
[2016-07-20] MEDS: DABIGATRAN 150 MG CAPSULE PO SCH ×2 (08:20→20:08)
[2016-07-20] MEDS: LANSOPRAZOLE SOLU-TAB 15 MG TABLET PO SCH (08:20)
[2016-07-20] MEDS: ROFLUMILAST 500 MCG TABLET PO SCH (08:20)
[2016-07-20] MEDS: CHOLECALCIFEROL 1,000 UNIT TABLET PO SCH (08:21)
[2016-07-20] MEDS: NORMAL SALINE 1,000 ML IV SCH (08:24)
[2016-07-20] MEDS: FLUTICASONE/SALMETEROL 250/50 DISK INHALER ORAL INH SCH ×2 (09:00→19:47)
--- NOTE | 2016-07-20 10:06 | DI ---
INDICATION: ITS.REASON: COUGH PROCEDURE: CHEST 2-VIEWS UPRIGHT (PA \T\ LAT) Encounter: Initial COMPARISON: March 20, 2013 FINDINGS: Increased interstitial markings in the left base. No signal pleural effusion. Emphysema. No pneumothorax. Cardiac silhouette is mildly enlarged. Mediastinal contours are stable. Impression: Findings of mild pulmonary vascular congestion or edema. Underlying early infiltrate in the lung bases is also possible. .
[2016-07-20] MEDS ORDERED: FUROSEMIDE 20 MG/2 ML INJECTION IV ONE (13:00)
--- NOTE | 2016-07-20 13:03 | PNPDOC ---
TIERA TADEO UNDER CUTTING MACHINE OPERATOR 07/20/16 1229: Subjective Date DATE: 07/20/16 TIME: 12:28 Subjective Roseline was seen just before lunch. Her sisters were also present. She is feeling a little better today compared to yesterday, but is still a little short of breath. Dyspnea worsens with exertion. She's on 4-5 L of oxygen. She doesn't seem to be coughing quite as much. She notes some abdominal bloating and diarrhea - at home she takes a probiotic. She denies any leg swelling. Objective Vital Signs Vital signs Vital Signs Date Time Temp Pulse Resp B/P Pulse Ox O2 Delivery O2 Flow Rate FiO2 07/20/16 11:53 76 07/20/16 11:43 20 07/20/16 07:59 94 Nasal Cannula 4.00 07/20/16 07:12 96.9 146/80 07/19/16 06:00 30 Telemetry Rhythm: Sinus Tachycardia Height (Feet): 5 Height (Inches): 6.00 Weight (Kilograms): 74.000 General General Appearance: Alert, Orientated x 3, Well Nourished, Well Developed, No Acute Distress Eyes (Brief) Eyes: FOUND: PERRL, NOT FOUND: scleral icterus ENMT (Brief) ENMT: FOUND: mucosa moist, NOT FOUND: pharnyx erythema Respiratory (Brief) Respiratory: FOUND: equal bilaterally Comments decreased air movement Cardiovascular (Brief) Cardiac: FOUND: regular rate, regular rhythm Abdomen (Brief) Abdominal: FOUND: BS normo active x4, distended (mild), soft, NOT FOUND: tender Extremities (Brief) Extremity : Side: Bilateral Extremity: leg Extremity Finding: NOT FOUND: edema Musculoskeletal (Brief) Musculoskeletal: NOT FOUND: deformity, tenderness Integumentary (Brief) Integumentary: FOUND: dry, pink, warm Psychiatric (Brief) Psychiatric: FOUND: alert, attentive, normal affect, oriented Laboratory Laboratory Laboratory Tests 07/18/16 19:34 07/19/16 10:17 07/20/16 05:00 Laboratory Tests 07/18/16 19:34 07/19/16 10:17 07/20/16 05:00 Microbiology Microbiology Microbiology Date/Time Source Procedure Growth Status 07/18/16 20:19 Peripheral/Iv Start Blood Culture - Preliminary NO GROWTH AFTER 24 HOURS Resulted 07/18/16 20:19 Peripheral/Iv Start Blood Culture - Preliminary NO GROWTH AFTER 24 HOURS Resulted 07/19/16 15:30 Sputum Expectorated Sputum Gram Stain - Final Resulted 07/19/16 15:30 Sputum Expectorated Sputum Sputum Culture - Preliminary CULTURE INITIATED - RESULTS PENDING Resulted Sepsis Diagnostic Criteria Sepsis Confirmed/Suspected Infection: Yes SIRS Criteria: Temp<=96.8 or >=100.4, Bands >= 10% Severe Sepsis SpO2 <90% or ventilated Assessment & Plan Problems: (1) EXACERBATION COPD Status: Acute (2) CAP (community acquired pneumonia) Status: Acute (3) Acute and chronic respiratory failure with hypoxia Status: Acute (4) Severe sepsis (5) HTN (hypertension) Status: Chronic (6) Paroxysmal a-fib Status: Chronic (7) GERD (gastroesophageal reflux disease) Qualifiers: Esophagitis presence: with esophagitis Qualified Codes: K21.0 - Gastro- esophageal reflux disease with esophagitis (8) Connor's esophagus Assessment Community acquired pneumonia with COPD exacerbation, acute on chronic hypoxic respiratory failure, and severe sepsis present on admission. Patient describes penicillin causing swelling of her lips, tongue, and neck. Patient seen in cross coverage for Dr. Guzman. Plan/Intensity of Service Pt is up 3.6L of fluid: Stop IVF and give Lasix 20 mg IV x1. Monitor Na, which was slightly elevated at 146. CAP: cont. Invanz, DuoNeb. Prelim sputum - few short gram neg rods. COPD: Change steroids to Prednisone 60 mg tomorrow am. Leukocytosis: WBC decreased to 12K. Sepsis syndrome resolved. DVT Prophylaxis: other (Pradaxa) Code Status Full Code Hospital Course Summary Disclaimer The hospital course summary below is not to be considered part of the above Progress Note. BRE BREWSTER MD 07/20/16 3894: Assessment & Plan Assessment I have independently evaluated and examined this patient. I reviewed the chart, the patient's history, and the UNDER CUTTING MACHINE OPERATOR's documented findings as above. We discussed and formulated the assessment and plan as above with additions as below: Mrs. Morrison reports continued exertional dyspnea but no dyspnea at rest. Cough is a little looser with some sputum production. She had minor diarrhea this morning. She denies change in her weight or feeling fluid overloaded. Respirations are nonlabored with faint crackles at the bases and diminished breath sounds throughout. Cardiac rhythm regular. There is no peripheral edema. Gram stain demonstrates many neutrophils and a few short gram-negative rods not yet identified. Blood cultures remain negative. Continue current therapy. Await identification of organism in sputum-suspicious for Moraxella which would permit conversion to Bactrim for management. Repeat chest x-ray in a.m. Blood pressure stable. Dr. Guzman will assume care of patient in the morning. TIERA TADEO APRN Jul 20, 2016 12:29 BRE BREWSTER MD Jul 20, 2016 16:37
[2016-07-20] MEDS: HYDROCODONE/APAP 5 mg/325 mg TABLET PO PRN ×2 (14:00→21:44)
[2016-07-20] MEDS: LACTOBACILLUS (15B cfu) CAPSULE PO SCH (17:41)
--- NOTE | 2016-07-20 18:45 | NUR ---
SUMMARY PT IS A&OX3 AND UP TO BR WITH 1 ASSIST. PT DENIES CHEST PAIN AND SOA. RIGHT FA IV PATENT. MANY VISITORS TODAY. NORCO GIVEN FOR REPORTS OF BACK PAIN. PT UP TO CHAIR FOR MEALS. VITALS STABLE ON 4L NC.
[2016-07-20] MEDS: SIMVASTATIN 20 MG TABLET PO SCH (21:44)
--- NOTE | 2016-07-20 23:00 | NUR ---
STATUS PT SLEEPING WITH BIPAP ON 4 L O2. WAS GIVEN PAIN MEDICATION PER HER REQUEST AT BEDTIME. EDUCATED ABOUT USE OF CALL LIGHT. VOICED UNDERSTANDING.
[2016-07-21] VITALS (10 sets, daily range): BP systolic 128–153; BP diastolic 70–84; PULSE 69–107; RESP 16–22; TEMP 95.6–97.8; O2SAT 91–97
[2016-07-21 05:12] LABS: HCT - HEMATOCRIT 37.7 % (36-46); HGB - HEMOGLOBIN 11.7 GM/DL (12-16); IMMATURE GRANULOCYTE # (AUTO) 0.04 T/MM3 (0.00-0.03); IMMATURE GRANULOCYTE % (AUTO) 0.4 % (0.0-0.5); LYMPHOCYTES # (AUTO) 0.8 T/MM3 (1-4.8); LYMPHOCYTES % (AUTO) 7.4 % (23-45); MEAN CORPUSCULAR HGB 28.9 UUG (26-34); MEAN CORPUSCULAR VOLUME 93.1 UM3 (80-100); MEAN PLATELET VOLUME 10.5 UM3 (9.4-12.4); MONOCYTES # (AUTO) 1.3 T/MM3 (0-0.8); MONOCYTES % (AUTO) 11.9 % (0-9.0); NEUTROPHILS #(AUTO)-ABSOLUTE 8.5 T/MM3 (1.8-7.7); NEUTROPHILS % (AUTO) 80.3 % (33-66); RED BLOOD COUNT 4.05 M/MM3 (4.00-5.20); WBC - WHITE BLOOD COUNT 10.6 T/MM3 (4.5-11.0)
[2016-07-21 05:29] LABS: ANION GAP 9 MEQ/L (5-15); BUN/CREATININE RATIO 40 RATIO (6-26); CHLORIDE 105 MEQ/L (98-107); CO2 - CARBON DIOXIDE 32 MEQ/L (22-30); CREATININE 0.5 MG/DL (0.7-1.2); GLOMERULAR FILTRATION RATE 121; GLUCOSE 125 MG/DL (65-110); POTASSIUM 3.7 MEQ/L (3.6-5); SODIUM 146 MEQ/L (134-144)
[2016-07-21] MEDS: SOTALOL 80 MG TABLET PO SCH ×2 (05:44→20:46)
--- NOTE | 2016-07-21 05:47 | NUR ---
SUMMARY PT SLEPT WELL THIS SHIFT. PT IS ALERT AND ORIENTED. ABLE TO VERBALIZE NEEDS TO THE STAFFS. DENIED ANY PAIN OR SOA THIS MORNING. PT HAD BIPAP WITH 4LNC O2 ALL NIGHT. STANDBY ASSIST TO THE BATHROOM. AMBULATED SEVERAL TIMES TO THE BATHROOM. GAIT STEADY PT IS CONTINENT OF B&B. VS WITHIN RANGE.
[2016-07-21] MEDS: ALBUTEROL/IPRATROPIUM INHAL. 2.5mg-0.5mg/3ml Neb. AEROSOL SCH ×4 (07:32→19:07)
[2016-07-21] MEDS: CHOLECALCIFEROL 1,000 UNIT TABLET PO SCH (09:01)
[2016-07-21] MEDS: DABIGATRAN 150 MG CAPSULE PO SCH ×2 (09:01→20:46)
[2016-07-21] MEDS: PredniSONE 20 MG TABLET PO SCH (09:01)
[2016-07-21] MEDS: LACTOBACILLUS (15B cfu) CAPSULE PO SCH ×2 (09:01→17:49)
[2016-07-21] MEDS: VITAMIN B COMP + C TABLET PO SCH (09:01)
[2016-07-21] MEDS: ERTAPENEM 1 G in NORMAL SALINE 100 ML IV SCH (09:01)
[2016-07-21] MEDS: CALCIUM CARBONATE 600 MG TABLET PO SCH (09:02)
[2016-07-21] MEDS: AMLODIPINE 10 MG TABLET PO SCH (09:02)
[2016-07-21] MEDS: LANSOPRAZOLE SOLU-TAB 15 MG TABLET PO SCH (09:02)
[2016-07-21] MEDS: ROFLUMILAST 500 MCG TABLET PO SCH (09:02)
[2016-07-21] MEDS: FLUTICASONE/SALMETEROL 250/50 DISK INHALER ORAL INH SCH ×2 (09:19→21:25)
--- NOTE | 2016-07-21 09:21 | DI ---
INDICATION: ITS.REASON: COPD exacerbation, pneumonia PROCEDURE: CHEST 2-VIEWS UPRIGHT (PA \T\ LAT) Encounter: Initial COMPARISON: July 18, 2016 FINDINGS: Lungs are hyperinflated. Increased markings in the lung bases are again seen with some improvement in aeration of the left lower lobe. No pneumothorax or effusion. Heart size and mediastinal contours are stable. Impression: Improving aeration of the left base. .
--- NOTE | 2016-07-21 09:45 | NUR ---
SPUTUM PATIENT SHOWED RN RED-TINGED/BROWN SPUTUM THIS AM. PATIENT STATES THE RED TINGE IS NEW SINCE ADMISSION.
[2016-07-21] MEDS: ONDANSETRON 4mg/2ml INJECTION IV PRN ×2 (09:59→22:00)
--- NOTE | 2016-07-21 09:59 | NUR ---
NAUSEA PATIENT REPORTING SLIGHT NAUSEA, SAYS SHE FELT IT A LITTLE OVERNIGHT, TOO. PRN IV ZOFRAN GIVEN.
--- NOTE | 2016-07-21 11:21 | NUR ---
HYPOXIA PATIENT WAS WALKING IN HALLWAY WITH PHYSICAL THERAPY WHEN RN SPOT CHECKED HER OXYGEN SATURATION. FOUND TO BE AT 70% ON 4L NC. O2 INCREASED TO 6L AND HEADED BACK TO ROOM. ON THE WAY BACK O2 SAT INCREASED TO 80%. ONCE PATIENT SAT DOWN IN CHAIR, O2 DECREASED BACK TO 4L NC, WITHIN 30 SECONDS OF SITTING DOWN, PATIENT'S O2 SAT AT 96%. ENCOURAGED PATIENT IN PURSED LIP BREATHING.
--- NOTE | 2016-07-21 14:19 | NUR ---
CM CM IN TO VISIT WITH PT. CM EXPLAINED ROLE, PROVIDED CONTACT INFORMATION AND UPDATED WHITEBOARD. PT DENIES HOME NEEDS AT THIS TIME. PT REPORTS SHE IS ON O2 AT HOME ALREADY AND USES [facility]. PT AWARE TO CALL CM SHOULD NEEDS ARISE.
--- NOTE | 2016-07-21 17:57 | NUR ---
SHIFT SUMMARY VSS. 4L NC. GOOD PO INTAKE TODAY. GOOD URINE OUTPUT. NO BM TODAY. SEE PREVIOUS NOTE ABOUT AMBULATION/HYPOXIA. UP TO CHAIR FOR LUNCH AND SUPPER. NO FURTHER BLOOD-TINGED SPUTUM AFTER THIS MORNING. BED AND CHAIR ALARMS IN USE, USES CALL LIGHT APPROPRIATELY.
--- NOTE | 2016-07-21 18:47 | PNPDOC ---
Subjective Date DATE: 07/21/16 TIME: 18:40 Subjective Patient seen and examined in her room. Chart, labs, radiographs were reviewed. I also discussed with nursing staff. Roseline walked earlier today almost to the main [place]is[place]. At that point she had to stop due to hypoxia with O2 saturations in the low 70s. Nursing reports some blood-tinged sputum earlier today. Roseline states that since that time the sputum has been clear. She denies chest pain. Objective Vital Signs Vital signs Vital Signs 07/21/16 07/21/16 07/21/16 07/21/16 07:18 07:26 07:32 07:32 Temp 95.6 Pulse 74 74 100 Resp 20 20 20 B/P 150/80 Pulse Ox 94 O2 Delivery Nasal Cannula O2 Flow Rate 4.00 07/21/16 07/21/16 07/21/16 07/21/16 07:32 07:32 09:19 09:19 Pulse 76 88 Resp 20 Pulse Ox 95 O2 Delivery Nasal Cannula O2 Flow Rate 4.00 07/21/16 07/21/16 07/21/16 07/21/16 09:19 11:09 11:30 11:30 Temp 97.8 Pulse 88 69 66 Resp 18 B/P 128/70 Pulse Ox 94 96 O2 Delivery Nasal Cannula Nasal Cannula O2 Flow Rate 4.00 4.00 07/21/16 07/21/16 07/21/16 07/21/16 11:30 11:30 15:11 15:11 Pulse 60 84 Resp 20 22 07/21/16 07/21/16 15:22 15:24 Temp 97.3 Pulse 84 89 Resp 18 B/P 139/75 Pulse Ox 92 O2 Delivery Nasal Cannula O2 Flow Rate 4.00 Telemetry Rhythm: Sinus Rhythm Height (Feet): 5 Height (Inches): 6.00 Weight (Kilograms): 71.400 General General Appearance: Alert, Orientated x 3, Cooperative, No Acute Distress Eyes (Brief) Eyes: FOUND: EOMI, PERRL, NOT FOUND: scleral icterus Neck (Brief) Neck Brief: NOT FOUND: JVD, adenopathy, carotid bruits, thyromegaly Respiratory (Brief) Comments Greatly diminished throughout with scattered rhonchi Cardiovascular (Brief) Cardiac: FOUND: regular rate, regular rhythm, NOT FOUND: gallop, murmur, pedal edema Abdomen (Brief) Abdominal: FOUND: BS normo active x4, soft, tender (around her umbilicus), NOT FOUND: distended, hepatosplenomegaly Extremities (Brief) Extremity : Side: Bilateral Extremity Finding: NOT FOUND: edema Lymphatic (Brief) Lymphatic Brief: NOT FOUND: adenopathy, lymphedema Musculoskeletal (Brief) Musculoskeletal Brief: FOUND: extremities move equally, NOT FOUND: deformity, loss of motion, spasm, tenderness Integumentary (Brief) Integumentary: FOUND: dry, pink, warm, NOT FOUND: rash Neurologic (Brief) Neurologic: FOUND: cranial 2-12 intact, motor, sensory Psychiatric (Brief) Psychiatric: FOUND: alert, attentive, normal affect, oriented Laboratory Laboratory Laboratory Tests 07/21/16 04:52 Laboratory Tests 07/21/16 04:52 Microbiology Microbiology Microbiology Date/Time Source Procedure Growth Status 07/18/16 20:19 Peripheral/Iv Start Blood Culture - Preliminary NO GROWTH AFTER 48 HOURS Resulted 07/18/16 20:19 Peripheral/Iv Start Blood Culture - Preliminary NO GROWTH AFTER 48 HOURS Resulted 07/19/16 15:30 Sputum Expectorated Sputum Gram Stain - Final Resulted 07/19/16 15:30 Sputum Culture - Preliminary YEAST Resulted 07/19/16 14:53 Urine Legionella Urinary Antigen - Final Complete 07/19/16 14:53 Urine Streptococcus pneumoniae Antigen (M - Final Complete Radiology DATE OF EXAM: 07/21/16 ORDERING DOCTOR: BRE BREWSTER MD TYPE OF EXAM: CHEST, PA & LATERAL REASON FOR EXAM: COPD exacerbation, pneumonia INDICATION: ITS.REASON: COPD exacerbation, pneumonia PROCEDURE: CHEST 2-VIEWS UPRIGHT (PA \T\ LAT) Encounter: Initial COMPARISON: July 18, 2016 FINDINGS: Lungs are hyperinflated. Increased markings in the lung bases are again seen with some improvement in aeration of the left lower lobe. No pneumothorax or effusion. Heart size and mediastinal contours are stable. Impression: Improving aeration of the left base. . Sepsis Diagnostic Criteria Sepsis Confirmed/Suspected Infection: Yes SIRS Criteria: Temp<=96.8 or >=100.4, Bands >= 10% Severe Sepsis SpO2 <90% or ventilated Assessment & Plan Problems: (1) CAP (community acquired pneumonia) Status: Acute Assessment & Plan: Respiratory pathogens panel is negative as well as the legionella and strep urine test (2) EXACERBATION COPD Status: Acute (3) Acute and chronic respiratory failure with hypoxia Status: Acute (4) Severe sepsis Status: Resolved Assessment & Plan: Lactate has returned to normal (5) HTN (hypertension) Status: Chronic (6) Paroxysmal a-fib Status: Chronic (7) GERD (gastroesophageal reflux disease) Qualifiers: Esophagitis presence: with esophagitis Qualified Codes: K21.0 - Gastro- esophageal reflux disease with esophagitis (8) Connor's esophagus Assessment I have independently evaluated and examined this patient. I reviewed the chart, the patient's history, and the SQL TECH's documented findings as above. We discussed and formulated the assessment and plan as above with additions as below: Mrs. Morrison reports continued exertional dyspnea but no dyspnea at rest. Cough is a little looser with some sputum production. She had minor diarrhea this morning. She denies change in her weight or feeling fluid overloaded. Respirations are nonlabored with faint crackles at the bases and diminished breath sounds throughout. Cardiac rhythm regular. There is no peripheral edema. Gram stain demonstrates many neutrophils and a few short gram-negative rods not yet identified. Blood cultures remain negative. Continue current therapy. Await identification of organism in sputum-suspicious for Moraxella which would permit conversion to Bactrim for management. Repeat chest x-ray in a.m. Blood pressure stable. Dr. Haque will assume care of patient in the morning. Plan/Intensity of Service Pt is up 3.6L of fluid: Stop IVF and give Lasix 20 mg IV x1. Monitor Na, which was slightly elevated at 146. CAP: cont. Invanz, DuoNeb. Prelim sputum - few short gram neg rods. COPD: Change steroids to Prednisone 60 mg tomorrow am. Leukocytosis: WBC decreased to 12K. Sepsis syndrome resolved. Code Status Full Code Hospital Course Summary Disclaimer The hospital course summary below is not to be considered part of the above Progress Note. Hospital Course Summary 07/21/2016: Chart labs and patient interviewed and examined. She appears to be improving nicely. Her white count is back down to normal and her lactate has resolved. Her chest x-ray is also improving. She was able to walk today but became quickly hypoxic with O2 sats in the low 70s. We will continue current therapy. ROMA HAQUE DO Jul 21, 2016 18:43
--- NOTE | 2016-07-21 20:00 | NUR ---
resp coarse breath sounds R base. Pt. denies dyspnea at rest. O2 in place, sats 91%
[2016-07-21] MEDS: SIMVASTATIN 20 MG TABLET PO SCH (20:47)
[2016-07-21] MEDS: HYDROCODONE/APAP 5 mg/325 mg TABLET PO PRN (22:00)
--- NOTE | 2016-07-21 22:00 | NUR ---
comfort states back discomfort, Mcmillan offered. States slight nausea. Zofran given. Takes meds w/ pudding without emesis
[2016-07-22] VITALS (7 sets, daily range): BP systolic 139–149; BP diastolic 70–81; PULSE 67–98; RESP 16–18; TEMP 96.8–97.8; O2SAT 92–95
--- NOTE | 2016-07-22 04:58 | NUR ---
rest sleeps w/ BiPAP in place. O2 per cannula as up to BR
[2016-07-22 05:37] LABS: HCT - HEMATOCRIT 39.2 % (36-46); MEAN CORPUSCULAR HGB 28.5 UUG (26-34); MEAN CORPUSCULAR HGB CONC(MCHC 30.6 GM/DL (31-37); MEAN CORPUSCULAR VOLUME 93.1 UM3 (80-100); RED BLOOD COUNT 4.21 M/MM3 (4.00-5.20); WBC - WHITE BLOOD COUNT 8.9 T/MM3 (4.5-11.0)
[2016-07-22 05:48] LABS: ALBUMIN 3.4 G/DL (3.5-5.0); ALBUMIN/GLOBULIN RATIO 1.4 RATIO (1.1-2.2); ALKALINE PHOSPHATASE 52 U/L (38-126); ALT (SGPT) 53 U/L (9-52); ANION GAP 8 MEQ/L (5-15); AST (SGOT) 21 U/L (14-36); BUN/CREATININE RATIO 33 RATIO (6-26); CALCIUM 9.3 MG/DL (8.4-10.2); CHLORIDE 104 MEQ/L (98-107); CO2 - CARBON DIOXIDE 34 MEQ/L (22-30); CREATININE 0.6 MG/DL (0.7-1.2); GLOMERULAR FILTRATION RATE 98; GLUCOSE 97 MG/DL (65-110); POTASSIUM 3.7 MEQ/L (3.6-5); SODIUM 146 MEQ/L (134-144); TOTAL PROTEIN 5.9 G/DL (6.3-8.2)
[2016-07-22] MEDS: SOTALOL 80 MG TABLET PO SCH (06:30)
[2016-07-22 06:31] LABS: BAND NEUTROPHILS # 0.1 T/MM3; MONOCYTES # (MANUAL) 0.4 T/MM3 (0-0.8); NEUTROPHILS #(MANUAL)-ABSOLUTE 7.4 T/MM3 (1.8-7.7); TOTAL CELLS COUNTED 100 %
[2016-07-22] MEDS: ALBUTEROL/IPRATROPIUM INHAL. 2.5mg-0.5mg/3ml Neb. AEROSOL SCH ×3 (06:54→15:50)
--- NOTE | 2016-07-22 07:48 | NUR ---
Status Pt alert and oriented. Denies pain this morning. Vitals stable as charted. Pt does say she is a little short of breath but this is her normal. Respirations unlabored at 18/minute. O2 sat 92% with O2 at 4L per NC. Pt wears O2 at 4L at home. Pt sits in chair for breakfast. Will continue to monitor.
[2016-07-22] MEDS ORDERED: FLUCONAZOLE 150 MG TABLET PO ONE (08:45)
[2016-07-22] MEDS: FLUTICASONE/SALMETEROL 250/50 DISK INHALER ORAL INH SCH (09:00)
[2016-07-22] MEDS: LACTOBACILLUS (15B cfu) CAPSULE PO SCH ×2 (09:42→18:14)
[2016-07-22] MEDS: ROFLUMILAST 500 MCG TABLET PO SCH (09:42)
[2016-07-22] MEDS: CALCIUM CARBONATE 600 MG TABLET PO SCH (09:42)
[2016-07-22] MEDS: PredniSONE 20 MG TABLET PO SCH (09:42)
[2016-07-22] MEDS: VITAMIN B COMP + C TABLET PO SCH (09:43)
[2016-07-22] MEDS: AMLODIPINE 10 MG TABLET PO SCH (09:43)
[2016-07-22] MEDS: CHOLECALCIFEROL 1,000 UNIT TABLET PO SCH (09:43)
[2016-07-22] MEDS: DABIGATRAN 150 MG CAPSULE PO SCH (09:43)
[2016-07-22] MEDS: LANSOPRAZOLE SOLU-TAB 15 MG TABLET PO SCH (09:43)
[2016-07-22] MEDS: ERTAPENEM 1 G in NORMAL SALINE 100 ML IV SCH (09:43)
--- NOTE | 2016-07-22 13:30 | NUR ---
ACTIVITY PT AMBULATES IN HALLS WITH ASSIST AND WITH O2 AT 4L PER NC. SATS DROP TO 83% ON THE 4L AFTER PT WALKS TO "MAIN STREET" AND IS HALF WAY BACK TO HER ROOM. THIS IS REPORTED TO DR. HAQUE. O2 SATS STABILIZE IN THE 90'S. WILL MONITOR.
--- NOTE | 2016-07-22 16:08 | NUR ---
PT NOTE: Pt not seen by PT today d/t one refusal and pt being busy with other disciplines later in PM. Will follow up per POC. Call [phone] with questions.
[2016-07-22] MEDS ORDERED: CEFU500T68 PO (17:30)
--- NOTE | 2016-07-22 17:35 | DSPDOC ---
Discharge Diagnoses Discharge Diagnoses (1) CAP (community acquired pneumonia) Comments: Respiratory pathogens panel is negative as well as the legionella and strep urine test (2) Severe sepsis Comments: Lactate has returned to normal (3) EXACERBATION COPD (4) Acute and chronic respiratory failure with hypoxia (5) HTN (hypertension) (6) Paroxysmal a-fib (7) GERD (gastroesophageal reflux disease) (8) Connor's esophagus Hospital Course 07/21/2016: Chart labs and patient interviewed and examined. She appears to be improving nicely. Her white count is back down to normal and her lactate has resolved. Her chest x-ray is also improving. She was able to walk today but became quickly hypoxic with O2 sats in the low 70s. We will continue current therapy. 07/22/2016: White count normal. She is much improved, yet still becomes hypoxic with exertion. She was able to walk a little farther today. She is now stable for discharge to home. Her brother -in-law will take her home and stay with her.She has been on Invanz. I will send Rx for Cefuroxime BID for 5 days Home Meds Active Scripts Cefuroxime Axetil (Cefuroxime) 500 Mg Tablet, 500 MG PO Q12HR for 5 Days, #10 TAB 0 Refills Prov:ROMA HAQUE DO 07/22/16 Reported Medications Amlodipine Besylate (Amlodipine Besylate) 10 Mg Tablet, 10 MG PO DAILY 07/18/16 Ipratropium/Albuterol Sulfate (Iprat-Albut 0.5-3(2.5) mg/3 ml) 3 Ml Ampul.neb, 1 UNIT AEROSOL QID 07/18/16 Lansoprazole (Prevacid) 15 Mg Capsule.dr, 15 MG PO DAILY 11/30/15 Calcium Carbonate (Calcium) 600 Mg Tablet, 1200 MG PO DAILY 11/23/15 Dabigatran Etexilate Mesylate (Pradaxa) 150 Mg Capsule, 150 MG PO BID 11/23/15 Zoledronic Acid (Reclast 5 mg/100 ml Solution) 5 Mg/100 Ml Ml, 100 ML IV YEARLY 11/23/15 Sotalol HCl (Sotalol) 80 Mg Tablet, 80 MG PO BID 11/23/15 Roflumilast (Daliresp) 500 Mcg Tablet, 500 MCG PO DAILY 12/23/12 Cholecalciferol (Vitamin D) 1,000 Unit Tablet, 1000 UNIT PO DAILY 12/22/12 Simvastatin (Simvastatin) 20 Mg Tablet, 20 MG PO HS 06/08/12 Vitamin B Complex (Vitamin B Complex) 1 Cap Capsule, 1 CAP PO DAILY 11/29/08 Ascorbic Acid (Vitamin C) 1,000 Mg Tablet, 1000 MG PO DAILY 11/29/08 Multivitamins W-Minerals (Multivitamin) 1 Cap Capsule, 1 CAP PO DAILY 11/29/08 Fluticasone/Salmeterol (Advair 250/50) 28 Puff/Disk Inhaler, 2 PUFF IH BID 11/29/08 Discharge Disposition Discharged to home Copies To 1: ROMA HAQUE DO Follow up Condition at time of discharge: Fair Follow up 7-10 days at [facility]. ROMA HAQUE DO Jul 22, 2016 17:34
--- NOTE | 2016-07-22 18:00 | NUR ---
STATUS PT SITS UP IN CHAIR. DENIES NEEDS. VITALS STABLE. WILL MONITOR.
--- NOTE | 2016-07-22 18:51 | NUR ---
DISCHARGE QUESTIONS PT QUESTIONS IF SHE NEEDS TO INCREASE HER CULTURELLE DOSE AT HOME. CLARIFIED WITH DR. HAQUE THAT PT DOES NOT NEED TO DO THIS. PT HAS BEEN ON PREDNISONE HERE. ALSO CLARIFIED WITH DR. HAQUE THAT PT DOES NOT NEED TO BE ON PREDNISONE WHEN SHE GOES HOME.
--- NOTE | 2016-07-22 19:10 | NUR ---
DISCHARGE DISCHARGE INSTRUCTIONS GIVEN TO PT INCLUDING BUT NOT LIMITED TO FOLLOW UP APPOINTMENT WHICH NEEDS TO BE MADE, HOME MED LIST, AND SIGNS AND SYMPTOMS TO WATCH FOR/REPORT TO THE DOCTOR. PT DENIES FURTHER QUESTIONS CONCERNS. PT TAKEN BY W/C TO PRIVATE VEHICLE.
== END 2016-07-22 19:10 | disposition home or self-care (01) | DRG 871 ==
LOC: ED 19:03 → EDHOLD 20:51 → CCU 20:51 → MED 07-19 17:20
PROVIDERS: ADMIT Pediatrics; ATTEND Internal Medicine
PROC: 5A09357 Assistance with Respiratory Ventilation, Less than 24 Consecutive Hours, Continuous Positive Airway Pressure (ICD-10-PCS; principal; 2016-07-18)
DX: A41.9 Sepsis, unspecified organism (principal); J18.9 Pneumonia, unspecified organism; J96.21 Acute and chronic respiratory failure with hypoxia; J44.1 Chronic obstructive pulmonary disease with (acute) exacerbation; R65.20 Severe sepsis without septic shock; I48.0 Paroxysmal atrial fibrillation; I10 Essential (primary) hypertension; G89.29 Other chronic pain; M54.9 Dorsalgia, unspecified; E78.5 Hyperlipidemia, unspecified; K21.0 Gastro-esophageal reflux disease with esophagitis; K22.70 Barrett's esophagus without dysplasia; Z99.81 Dependence on supplemental oxygen; Z87.891 Personal history of nicotine dependence
CPT/HCPCS: 36415; 36600; 80048; 80053; 81003; 82803; 83605; 83880; 84145; 84484; 85007; 85025; 85027; 87040; 87070; 87205; 87449; 87486; 87581; 87633; 87798; 93005; 94002; 94640; 94667; 94668; 94762

== ENCOUNTER → 2016-08-27 | Outpatient (CLI) | payer MEDICARE, BC ==
[~2016-08-27] MED LIST changes: +AMLO10TA2 PO; -AMLO5TAB2 PO; +CEFU500T68 PO; -CYCL5TAB PO; -DOCU-168 PO; -HYDR-3989 PO; -MAGN400O4 PO
--- NOTE | 2016-08-27 11:12 | DI ---
Indication: ITS.REASON: R60.0 Localized edema PROCEDURE: US VENOUS DUPLEX, LOWER EXT LT: Encounter: Initial Comparison: None Technique: Color Doppler duplex and grayscale sonographic imaging of the left lower extremity was performed. Findings: There is no evidence for acute deep venous thrombosis in the left thigh. Specifically, serial graded compression was performed from the inguinal ligament to the popliteal bifurcation, on the left thigh, demonstrating appropriate compressibility of the deep venous system. In addition, color and pulsed Doppler demonstrate appropriate spontaneous flow, variation with respiration, and augmentation with calf compression. At the ankle, normal flow is identified in the posterior tibial veins; these vessels are also normal in caliber. Impression: No evidence of acute DVT in the left lower limb. .
== END ==
LOC: IMA 10:18
PROVIDERS: ATTEND Internal Medicine
DX: R60.0 Localized edema (principal)

== ENCOUNTER 2017-04-21 21:31 | Inpatient (IN) ==
[2017-04-21] MEDS ORDERED: METHYLPREDNISOLONE SOD SUCC 125mg/2ml INJECTION IVP ONE (21:42)
[2017-04-21] MEDS ORDERED: ALBUTEROL/IPRATROPIUM 2.5mg-0.5mg/3ml NEB IH ONE (21:42)
--- OUTSIDE RECORDS SUMMARY | 2017-04-21 21:52 | External Medical Summary | Referral Summary ---
:1940 Author Organization [facility] Address [address] [place] [address] [place] [phone] Care Team Providers Name Role Phone Flynn Guzman Primary Care Physician Encounter VC Date(s): 02/05/15 - 02/05/15 [facility] [address] [place] [address] [place] [id number] - Discharge Diagnosis: Mixed hearing loss, bilateral Discharge Disposition: 01-Home or Self Care Attending Physician: Lois Miranda Admitting Physician: Lois Miranda Vital Signs No data available for this section Problem List Condition Effective Dates Status Health Status Informant Mixed hearing loss, Active bilateral(Confirmed) perforated bowel during 2012 Active colonoscopy(Roeser)(Confirmed) Allergies, Adverse Reactions, Alerts Substance Reaction Severity Status penicillin Anaphylaxis Active Medications No data available for this section Results No data available for this section Immunizations No data available for this section Procedures Procedure Date Related Diagnosis Body Site right hemicolectomy(Beck)1 1perforated bowel during colonoscopy (Roeser) 2012 Social History No data available for this section Assessment and Plan No data available for this section
--- OUTSIDE RECORDS SUMMARY | 2017-04-21 21:52 | External Medical Summary | Referral Summary ---
:1940 Author Organization [facility] Address [address] [place] [address] [place] [phone] Care Team Providers Name Role Phone Flynn Guzman Primary Care Physician Encounter VC Date(s): 06/09/16 - 06/09/16 [facility] [address] [place] [address] [place] [id number] - Discharge Diagnosis: Mixed hearing loss, bilateral [...]
--- OUTSIDE RECORDS SUMMARY | 2017-04-21 21:52 | External Medical Summary | Referral Summary ---
:1940 Author Organization [facility] Address [address] [place] [address] [place] [phone] Care Team Providers Name Role Phone Flynn Guzman Primary Care Physician Encounter VC Date(s): 02/05/15 - 02/05/15 [facility] [address] [place] [address] [place] [id number] - Discharge Diagnosis: Mixed hearing loss, bilateral [...]
--- OUTSIDE RECORDS SUMMARY | 2017-04-21 21:53 | External Medical Summary | Referral Summary ---
:1940 Author Organization [facility] Address [address] [place] [address] [place] [phone] Care Team Providers Name Role Phone Flynn Guzman Primary Care Physician Encounter VC Date(s): 04/23/15 - 04/23/15 [facility] [address] [place] [address] [place] [id number] - Discharge Diagnosis: Mixed hearing loss, bilateral [...]
[2017-04-21] MEDS: SALINE FLUSH 10ml SYRINGE IVF PRN (22:05)
--- NOTE | 2017-04-21 22:34 | Emergency Department Report ---
SOB HPI - General Chief Complaint: Shortness of Breath/Dyspnea Stated Complaint: diff breathing Time Seen by Provider: 04/21/17 21:42 - History of Present Illness 76-year-old female presents with increased shortness of breath. She has chronic emphysema and requires 4 L nasal cannula at home. She noted she was feeling more short of breath today having a little more. EMS was contacted to bring her in for evaluation. She denies any chest pain or chest pressure, no nausea or vomiting. No fever or chills. Has had some increased upper airway congestion. She quit smoking 6 years ago, had a long smoking history prior to that. - Related Data Home Medications Medication Instructions Recorded Confirmed Ascorbic Acid (Vitamin C) 1,000 mg PO DAILY #0 11/29/08 Fluticasone/Salmeterol (Advair 2 puff IH BID #0 11/29/08 250/50) Multivitamins W-Minerals 1 cap PO DAILY #0 11/29/08 (Multivitamin) Vitamin B Complex 1 cap PO DAILY #0 11/29/08 Simvastatin 20 mg PO HS #0 06/08/12 Cholecalciferol (Vitamin D) 1,000 unit PO DAILY #0 12/22/12 Roflumilast [Daliresp] 500 mcg PO DAILY #0 12/23/12 Calcium Carbonate [Calcium] 1,200 mg PO DAILY #0 11/23/15 Dabigatran Etexilate Mesylate 150 mg PO BID #0 11/23/15 [Pradaxa] Sotalol HCl [Sotalol] 80 mg PO BID #0 11/23/15 Zoledronic Acid/Mannitol-Water 100 ml IV YEARLY #0 11/23/15 [Reclast 5 mg/100 ml Solution] Lansoprazole [Prevacid] 15 mg PO DAILY #0 11/30/15 Amlodipine Besylate 10 mg PO DAILY #0 07/18/16 Ipratropium/Albuterol Sulfate 1 unit AEROSOL QID #0 07/18/16 [Iprat-Albut 0.5-3(2.5) mg/3 ml] Previous Rx's Medication Instructions Recorded cefUROXime axetil [Cefuroxime] 500 mg PO Q12HR 5 Days #10 tab 07/22/16 Allergies Allergy/AdvReac Type Severity Reaction Status Date / Time Penicillins Allergy Severe Verified 07/19/16 15:25 Review of Systems All systems: reviewed and negative except as stated PFSH Emphysema, hypoxemia - Social History Smoking status: Former smoker second hand exposure: No Substance use type: does not use Physical Exam - Limitations Limitations: no limitations - General General appearance: alert, anxious - Normal Exams: Head:: Normocephalic without trauma Cardiovascular:: Regular rate and rhythm, without murmur or gallop, Pulses 2+ all extremities, capillary refill, <2 seconds all extremities Abdomen:: Bowel sounds positive, soft, non-tender, non-distended, no hepatosplenomegaly, masses or bruits noted Neurological:: Patient is alert, and oriented, cranial nerves, motor/sensory/ cerebellar, exams w/o gross deficits, to observation Psychiatric:: Patient exhibits, appropriate attention, emotion and affect - Respiratory Respiratory exam: Present: wheezes (noted bilateral, no crackles heard. Patient has prolonged expiratory phase.) Course Vital Signs Temperature 99.1 F 04/21/17 21:45 Pulse Rate 95 04/21/17 21:45 Respiratory Rate 22 04/21/17 21:45 Blood Pressure 165/72 H 04/21/17 21:45 Pulse Oximetry 92 04/21/17 21:45 Temperature 99.1 F 04/21/17 21:45 Pulse Rate 91 04/21/17 23:09 Respiratory Rate 22 04/21/17 23:09 Blood Pressure 140/70 H 04/21/17 23:09 Pulse Oximetry 92 04/21/17 23:09 Shortness of Breath/Dyspnea - [facility] Narrative Medical decision making narrative: Normal saline 500 mL bolus via IV. White count slightly elevated with a slight left shift. CMP reasonable. BNP 440. Chest x-ray shows infiltrate right greater than left as well as mild pulmonary congestion. Rocephin 1 g given IV, Zithromax 500 mg by mouth and Solu-Medrol 125 mg given IV. DuoNeb 1 at bedside. Patient's breathing improved, butPatient is requiring 4-5 L nasal cannula at rest and desaturates immediately on arising from bed. O2 sats 86% on standing at bedside, was unable to walk to the bathroom due to acute shortness of breath. I spoke with Dr. Guzman, will accept admit the patient. Patient will be placed on medical floor. First dose of steroids, antibiotic given in ER. - Differential Diagnosis Likely: acute exacerbation of chronic obstructive airways disease, congestive heart failure, community acquired pneumonia, asthma with exacerbation, pulmonary embolism - Medical Records Attestation: I reviewed the patient's medical records. - Lab Data Attestation: I reviewed the patient's lab results. Result diagrams: 04/21/17 21:48 04/21/17 21:48 Lab Results 04/21/17 04/21/17 04/21/17 Range/Units 21:48 21:48 21:48 WBC 12.2 H (4.5-11.0) T/MM3 RBC 4.14 (4.00-5.20) M/MM3 Hgb 11.9 L (12-16) GM/DL Hct 38.7 (36-46) % MCV 93.5 (80-100) UM3 MCH 28.7 (26-34) UUG MCHC 30.7 L (31-37) GM/DL RDW Std Deviation 47.1 (36.9-50.2) FL Plt Count 189 (130-400) T/MM3 MPV 10.0 (9.4-12.4) UM3 Immature Gran % (Auto) 0.2 (0.0-0.5) % Neut % (Auto) 76.4 H (33-66) % Lymph % (Auto) 11.2 L (23-45) % [place] % (Auto) 11.0 H (0-9.0) % Eos % (Auto) 1.1 (0-4) % Baso % (Auto) 0.1 (0-2) % Neut # (Auto) 9.3 H (1.8-7.7) T/MM3 Lymph # (Auto) 1.4 (1-4.8) T/MM3 [place] # (Auto) 1.3 H (0-0.8) T/MM3 Eos # (Auto) 0.1 (0-0.5) T/MM3 Baso # (Auto) 0.0 (0-0.2) T/MM3 Abs Immat Gran (auto) 0.02 (0.00-0.03) T/MM3 D-Dimer < 150 (0-230) NG/ML Turbidity < 20 (0-20) Sodium 146 H (134-144) MEQ/L Potassium 3.9 (3.6-5) MEQ/L Chloride 101 (98-107) MEQ/L Carbon Dioxide 35 H (22-30) MEQ/L Anion Gap 10 (5-15) MEQ/L BUN 12.0 (7-17) MG/DL Creatinine 0.5 L (0.7-1.2) MG/DL GFR Calculation 120 BUN/Creatinine Ratio 24 (6-26) RATIO Glucose 127 H (65-110) MG/DL Calculated Osmolality 283 H (261-280) MOSM/KG Calcium 9.3 (8.4-10.2) MG/DL Total Bilirubin 0.40 (0.20-1.30) MG/DL Icterus Index < 2 (0-7) AST 12 L (14-36) U/L ALT 25 (9-52) U/L Alkaline Phosphatase 63 (38-126) U/L Troponin I < 0.012 (0-0.12) ng/ml B-Natriuretic Peptide 440 H (0-175) pg/mL Total Protein 7.3 (6.3-8.2) G/DL Albumin 4.4 (3.5-5.0) G/DL Globulin 2.9 (2.4-3.6) G/DL Albumin/Globulin Ratio 1.5 (1.1-2.2) RATIO Specimen Hemolysis < 15 (0-25) Ur Collection Type Urine Color (YELLOW) Urine Clarity Urine pH (5.0-8.0) Ur Specific [place] (1.015-1.025) Urine Protein (NEGATIVE) Urine Glucose (UA) (NEGATIVE) Urine Ketones (NEGATIVE) Urine Occult Blood (NEGATIVE) Urine Nitrate (NEGATIVE) Urine Bilirubin (NEGATIVE) Urine Urobilinogen (NORMAL) EU/DL Ur Leukocyte Esterase (NEGATIVE) Urinalysis Comment Influenza Type A (PCR) (Negative) Influenza Type B (PCR) (Negative) 04/21/17 04/21/17 Range/Units 21:48 22:12 WBC (4.5-11.0) T/MM3 RBC (4.00-5.20) M/MM3 Hgb (12-16) GM/DL Hct (36-46) % MCV (80-100) UM3 MCH (26-34) UUG MCHC (31-37) GM/DL RDW Std Deviation (36.9-50.2) FL Plt Count (130-400) T/MM3 MPV (9.4-12.4) UM3 Immature Gran % (Auto) (0.0-0.5) % Neut % (Auto) (33-66) % Lymph % (Auto) (23-45) % [place] % (Auto) (0-9.0) % Eos % (Auto) (0-4) % Baso % (Auto) (0-2) % Neut # (Auto) (1.8-7.7) T/MM3 Lymph # (Auto) (1-4.8) T/MM3 [place] # (Auto) (0-0.8) T/MM3 Eos # (Auto) (0-0.5) T/MM3 Baso # (Auto) (0-0.2) T/MM3 Abs Immat Gran (auto) (0.00-0.03) T/MM3 D-Dimer (0-230) NG/ML Turbidity (0-20) Sodium (134-144) MEQ/L Potassium (3.6-5) MEQ/L Chloride (98-107) MEQ/L Carbon Dioxide (22-30) MEQ/L Anion Gap (5-15) MEQ/L BUN (7-17) MG/DL Creatinine (0.7-1.2) MG/DL GFR Calculation BUN/Creatinine Ratio (6-26) RATIO Glucose (65-110) MG/DL Calculated Osmolality (261-280) MOSM/KG Calcium (8.4-10.2) MG/DL Total Bilirubin (0.20-1.30) MG/DL Icterus Index (0-7) AST (14-36) U/L ALT (9-52) U/L Alkaline Phosphatase (38-126) U/L Troponin I (0-0.12) ng/ml B-Natriuretic Peptide (0-175) pg/mL Total Protein (6.3-8.2) G/DL Albumin (3.5-5.0) G/DL Globulin (2.4-3.6) G/DL Albumin/Globulin Ratio (1.1-2.2) RATIO Specimen Hemolysis (0-25) Ur Collection Type Urine, clean catch Urine Color Yellow (YELLOW) Urine Clarity Clear Urine pH 6.0 (5.0-8.0) Ur Specific [place] 1.015 (1.015-1.025) Urine Protein Negative (NEGATIVE) Urine Glucose (UA) Negative (NEGATIVE) Urine Ketones Negative (NEGATIVE) Urine Occult Blood Trace-intact (NEGATIVE) Urine Nitrate Negative (NEGATIVE) Urine Bilirubin Negative (NEGATIVE) Urine Urobilinogen 0.2 (NORMAL) EU/DL Ur Leukocyte Esterase Trace A (NEGATIVE) Urinalysis Comment Microscopic not ind. Influenza Type A (PCR) Negative (Negative) Influenza Type B (PCR) Negative (Negative) - Radiology Data Attestation: I reviewed the patient's radiology results. Disposition Clinical Impression: Emphysema of lung, Pneumonia, Hypoxemia Disposition: 02 To [facility] Condition: Stable Prescriptions: No Action Multivitamins W-Minerals (Multivitamin) 1 cap PO DAILY #0 Ascorbic Acid (Vitamin C) 1,000 mg PO DAILY #0 Roflumilast [Daliresp] 500 mcg PO DAILY #0 Zoledronic Acid/Mannitol-Water [Reclast 5 mg/100 ml Solution] 100 ml IV YEARLY #0 Calcium Carbonate [Calcium] 1,200 mg PO DAILY #0 Ipratropium/Albuterol Sulfate [Iprat-Albut 0.5-3(2.5) mg/3 ml] 1 unit AEROSOL QID #0 cefUROXime axetil [Cefuroxime] 500 mg PO Q12HR 5 Days #10 tab Fluticasone/Salmeterol (Advair 250/50) 2 puff IH BID #0 Vitamin B Complex 1 cap PO DAILY #0 Simvastatin 20 mg PO HS #0 Cholecalciferol (Vitamin D) 1,000 unit PO DAILY #0 Sotalol HCl [Sotalol] 80 mg PO BID #0 Dabigatran Etexilate Mesylate [Pradaxa] 150 mg PO BID #0 Lansoprazole [Prevacid] 15 mg PO DAILY #0 Amlodipine Besylate 10 mg PO DAILY #0 Referrals: Flynn Guzman DO [Family Provider] - Time of Disposition: 23:40 - Seen By: physician
[2017-04-21] MEDS ORDERED: CEFTRIAXONE (ER USE ONLY) 1 GM in NS 100 ML IV ONE (22:39)
[2017-04-21] MEDS: AZITHROMYCIN 600 MG TABLET PO SCH (23:45)
[2017-04-22 00:16] VITALS: BMI 26.2
--- NOTE | 2017-04-22 07:58 | XRay Report ---
INDICATION: dyspnea PROCEDURE: CHEST 2-VIEWS UPRIGHT (PA & LAT) Encounter: Initial COMPARISON: July 21, 2016 FINDINGS: Lungs are hyperinflated with emphysema. No lobar consolidation. No pleural effusion or pneumothorax. Heart size and mediastinal contours are stable. Pulmonary vascularity appears stable. Impression: Stable chest without acute cardiopulmonary disease. Emphysema. .
[2017-04-22] MEDS ORDERED: AZITHROMYCIN 600 MG TABLET PO SCH (09:00)
[2017-04-22] MEDS: AZITHROMYCIN 600 MG TABLET PO SCH (09:58)
[2017-04-22] MEDS ORDERED: AZITHROMYCIN 500 MG TABLET PO SCH (10:00)
[2017-04-22] MEDS: AZITHROMYCIN 500 MG TABLET PO SCH (10:11)
[2017-04-22] MEDS: ALBUTEROL/IPRATROPIUM 2.5mg-0.5mg/3ml NEB AEROSOL PRN ×3 (16:10→18:46)
[2017-04-22] MEDS ORDERED: CEFTRIAXONE 2 GM INJECTION IM SCH (17:00)
--- NOTE | 2017-04-22 17:03 | Internal Med History&Physical ---
Internal Medicine HPI Chief complaint: shortness of breath with hypoxia History of present illness: Roseline is a very pleasant 76-year-old white female who was admitted through the emergency department with increased shortness of breath and hypoxemia. She has a history of severe COPD and takes Advair and DuoNeb at home. She indicates that yesterday she became acutely short of breath over her usual and was trying to wait until this morning to come into the office. However, she was becoming more dyspneic and called for EMS to take her to the ER. Upon evaluation in the ER she was indeed hypoxic her oxygen was increased she was given a dose of Solu- Medrol, azithromycin, and Rocephin. At that time I was contacted and she was admitted to the hospital. She denies fevers chills night sweats or chest pain. She just very lethargic and short of breath Review of Systems - Constitutional Constitutional: Present: fatigue, lethargy. Absent: chills, fever(s), night sweats - Cardiovascular Cardiovascular: Absent: chest pain, palpitations, edema - Respiratory Respiratory: Present: cough, dyspnea, dyspnea on exertion, wheezing. Absent: hemoptysis, pain on inspiration, excessive phlegm production - Gastrointestinal Gastrointestinal: Absent: abdominal pain, constipation, diarrhea, nausea, vomiting - Integumentary/Breasts Integumentary: Absent: erythema - Neurological Neurological: Absent: abnormal gait, abnormal speech, burning sensations, focal weakness, frequent falls - Psychiatric Psychiatric: Absent: abnormal sleep pattern, anxiety, depression - Hematologic/Lymphatic Hematologic/Lymphatic: Absent: easy bleeding, easy bruising, lymphadenopathy PFSH Patient Stated Medical History Other HEENT Yes: Wears glasses Cardiac Arrhythmia Yes: Afib Hypertension Yes Chronic Obstructive Pulmonary Yes Disease (COPD) - Social History Smoking status: Former smoker Substance use type: does not use Alcohol intake frequency: does not drink Housing: house Household members: none Does patient use chewing tobacco?: No Current residence: Apartment/Private Home Medications Home Medications Medication Instructions Recorded Confirmed Type Ascorbic Acid (Vitamin C) 1,000 mg PO DAILY #0 11/29/08 04/22/17 History Fluticasone/Salmeterol (Advair 2 puff IH BID #0 11/29/08 04/22/17 History 250/50) Multivitamins W-Minerals 1 cap PO DAILY #0 11/29/08 04/22/17 History (Multivitamin) Vitamin B Complex 1 cap PO DAILY #0 11/29/08 04/22/17 History Simvastatin 20 mg PO HS #0 06/08/12 History Cholecalciferol (Vitamin D) 1,000 unit PO DAILY #0 12/22/12 04/22/17 History Roflumilast [Daliresp] 500 mcg PO DAILY #0 12/23/12 04/22/17 History Calcium Carbonate [Calcium] 1,200 mg PO DAILY #0 11/23/15 04/22/17 History Dabigatran Etexilate Mesylate 150 mg PO BID #0 11/23/15 04/22/17 History [Pradaxa] Sotalol HCl [Sotalol] 80 mg PO BID #0 11/23/15 History Zoledronic Acid/Mannitol-Water 100 ml IV YEARLY #0 11/23/15 04/22/17 History [Reclast 5 mg/100 ml Solution] Lansoprazole [Prevacid] 15 mg PO DAILY #0 11/30/15 04/22/17 History Amlodipine Besylate 10 mg PO DAILY #0 07/18/16 04/22/17 History Ipratropium/Albuterol Sulfate 1 unit AEROSOL QID #0 07/18/16 04/22/17 History [Iprat-Albut 0.5-3(2.5) mg/3 ml] Allergies Allergy/AdvReac Type Severity Reaction Status Date / Time Penicillins Allergy Severe Swelling Verified 04/22/17 00:32 Exam Vital signs: Temperature 97.3 F 04/22/17 07:47 Pulse Rate 117 H 04/22/17 14:06 Respiratory Rate 20 04/22/17 16:10 Blood Pressure 152/76 H 04/22/17 14:06 Pulse Oximetry 91 04/22/17 16:10 - Constitutional mild distress - Routine HEENT Exam Head: Present: normocephalic, atraumatic Eye: Present: EOMI, PERRL. Absent: conjunctival icterus, conjunctivae pink - Routine Neck Exam Present: supple. Absent: lymphadenopathy - Routine Chest/Breast/Axilla Exam Chest wall: Absent: tenderness Axillae: Absent: lymphadenopathy - Routine Respiratory Exam Present: accessory muscle use, dyspnea, rhonchi, wheezes (soft expiratory). Absent: CTA bilaterally - Routine Cardiovascular Exam Present: RRR, no murmur. Absent: S3, S4 - Routine Abdominal Exam Present: soft, normoactive bowel sounds, non distended, non tender. Absent: rebound, guarding, rigid - Routine Extremities Exam Present: edema (trace edema to the left lower extremity), amputation (right fingers). 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 Absent: depressed, anxious Internal Medicine Results - Labs CBC & Chem 7: 04/22/17 01:34 04/21/17 21:48 Labs: Short CBC 04/22/17 Range/Units 01:34 WBC 11.1 H (4.5-11.0) T/MM3 Hgb 11.7 L (12-16) GM/DL Hct 37.9 (36-46) % Plt Count 167 (130-400) T/MM3 - Imaging and Cardiology Chest x-ray Status: image reviewed by me Assessment and Plan - Assessment and Plan (1) Chronic obstructive pulmonary disease with (acute) exacerbation Start date: 04/21/17 Current visit: Yes Status: Acute Patient started on Solu-Medrol 125 mg every 6 hours (2) Pneumonia Current visit: Yes Status: Acute Patient was started on Zithromax and Rocephin (3) Hypoxemia Current visit: Yes Status: Acute (4) History of atrial fibrillation Current visit: Yes Status: Acute (5) Adequate anticoagulation on anticoagulant therapy Current visit: Yes Status: Acute
[2017-04-22] MEDS ORDERED: NS FLUSH BAG 500ml IV PRN (17:50)
[2017-04-22] MEDS: METHYLPREDNISOLONE SOD SUCC 125mg/2ml INJECTION IVP SCH ×2 (18:00→21:18)
[2017-04-22] MEDS: CEFTRIAXONE 2 GM in NS 100 ML IV SCH (18:00)
[2017-04-22] MEDS: SOTALOL 80 MG TABLET PO SCH (21:19)
[2017-04-22] MEDS: SIMVASTATIN 20 MG TABLET PO SCH (21:19)
[2017-04-23] MEDS: METHYLPREDNISOLONE SOD SUCC 125mg/2ml INJECTION IVP SCH ×4 (04:09→23:07)
[2017-04-23] MEDS: ALBUTEROL/IPRATROPIUM 2.5mg-0.5mg/3ml NEB AEROSOL PRN ×4 (04:15→19:36)
[2017-04-23] MEDS: PANTOPRAZOLE 20 MG TABLET PO SCH (06:29)
[2017-04-23] MEDS: SOTALOL 80 MG TABLET PO SCH ×2 (06:29→23:08)
[2017-04-23] MEDS: CALCIUM CARBONATE 600 MG TABLET PO SCH (09:23)
[2017-04-23] MEDS: AMLODIPINE 10 MG TABLET PO SCH (09:23)
[2017-04-23] MEDS: ASCORBIC ACID 500 MG TABLET PO SCH (09:23)
[2017-04-23] MEDS: MULTI-VITAMIN + MINERAL TABLET PO SCH (09:25)
[2017-04-23] MEDS: AZITHROMYCIN 500 MG TABLET PO SCH (09:25)
[2017-04-23] MEDS: VITAMIN B COMPLEX + C TABLET PO SCH (09:25)
[2017-04-23] MEDS: ROFLUMILAST 500 MCG TABLET PO SCH (09:25)
[2017-04-23] MEDS: SALINE FLUSH 10ml SYRINGE IVF PRN ×2 (09:25→17:38)
--- NOTE | 2017-04-23 17:11 | Internal Med Progress Note ---
Internal Medicine Subjective Patient seen and examined in her room. She is sitting up to her chair. She is now back to 4 L oxygen which is what she uses at home. She was able to ambulate earlier today down to the nurses station and back with oxygen and assist. She states she didn't get much sleep last night due to her cough. She denies chest pain. Exam Vital Signs: Temperature 97.5 F 04/23/17 15:00 Pulse Rate 88 04/23/17 15:00 Respiratory Rate 16 04/23/17 16:13 Blood Pressure 139/73 04/23/17 15:00 Pulse Oximetry 95 04/23/17 16:13 - Constitutional Present: no acute distress, cooperative - Routine HEENT Exam Head: Present: normocephalic, atraumatic Eye: Present: EOMI. Absent: conjunctival icterus, scleral injection, conjunctivae pink ENT: Present: mucous membranes moist, oropharynx clear, nares patent - Routine Neck Exam Present: supple. Absent: lymphadenopathy, thyromegaly - Routine Respiratory Exam Present: diminished air movement. Absent: rhonchi, wheezes, crackles - Routine Cardiovascular Exam Present: RRR. Absent: S3, S4 - Routine Abdominal Exam Present: soft, normoactive bowel sounds. Absent: rebound, guarding, rigid - Routine Extremities Exam Present: amputation (left third finger). Absent: cyanosis, clubbing, edema - Routine Skin Exam Present: intact. Absent: cyanosis, pallor, mottling, petechiae, urticaria, jaundice - Routine Neurological Exam Present: alert, oriented X3, CN II-XII intact - Routine Psychiatric Exam Present: normal affect, cooperative, good insight, good judgment. Absent: depressed, anxious Internal Medicine Results - Labs CBC & Chem 7: 04/22/17 01:34 04/21/17 21:48 Progress Note-A&P - Time Spent With Patient Total time spent is greater than 50% in coordination of care (as documented) at patient's floor/unit and/or counseling patient: 25 - 35 minutes (1) Chronic obstructive pulmonary disease with (acute) exacerbation Status: Acute Current Visit: Yes (2) Pneumonia Status: Acute Current Visit: Yes (3) Hypoxemia Status: Acute Current Visit: Yes (4) History of atrial fibrillation Status: Acute Current Visit: Yes (5) Adequate anticoagulation on anticoagulant therapy Status: Acute Current Visit: Yes - Assessment and Plan Patient appears improved. She has no expiratory wheezing so I will decrease her Solu-Medrol to 62.5 mg IV every 6 hours Hospital Course Summary Disclaimer: The visit summary below is not to be considered part of the above Progress Note. Hospital Course: Patient does appear improved. She was able to ambulate with assist and oxygen earlier today. I will decrease her Solu-Medrol to 62.5 mg IV every 6 hours she is no longer wheezing.
[2017-04-23] MEDS: LISINOPRIL 5 MG TABLET PO SCH (17:37)
[2017-04-23] MEDS: CEFTRIAXONE 2 GM in NS 100 ML IV SCH (17:38)
[2017-04-23] MEDS: SIMVASTATIN 20 MG TABLET PO SCH (23:08)
[2017-04-23 23:43] VITALS: TEMP 98.4
[2017-04-24] MEDS: METHYLPREDNISOLONE SOD SUCC 125mg/2ml INJECTION IVP SCH ×2 (02:44→08:57)
[2017-04-24] MEDS: SALINE FLUSH 10ml SYRINGE IVF PRN ×2 (02:45→08:57)
[2017-04-24] MEDS: PANTOPRAZOLE 20 MG TABLET PO SCH (07:32)
[2017-04-24] MEDS: SOTALOL 80 MG TABLET PO SCH (07:32)
[2017-04-24 07:48] VITALS: BP 160/88; PULSE 89
--- NOTE | 2017-04-24 08:46 | XRay Report ---
INDICATION: RESP DISTRESS, HYPOXIA PROCEDURE: CHEST 2-VIEWS UPRIGHT (PA & LAT) Encounter: Initial COMPARISON: April 21, 2017 FINDINGS: Hyperinflation and emphysema again noted with chronic interstitial prominence. No lobar consolidation, pleural effusion or pneumothorax. The heart size, pulmonary vascularity and mediastinal contours are within normal limits. No significant skeletal abnormality. Impression: No acute cardiopulmonary disease. .
[2017-04-24] MEDS: ROFLUMILAST 500 MCG TABLET PO SCH (08:56)
[2017-04-24] MEDS: ASCORBIC ACID 500 MG TABLET PO SCH (08:56)
[2017-04-24] MEDS: MULTI-VITAMIN + MINERAL TABLET PO SCH (08:57)
[2017-04-24] MEDS: LISINOPRIL 5 MG TABLET PO SCH (08:57)
[2017-04-24] MEDS: VITAMIN B COMPLEX + C TABLET PO SCH (08:57)
[2017-04-24] MEDS: CALCIUM CARBONATE 600 MG TABLET PO SCH (08:57)
[2017-04-24] MEDS: AMLODIPINE 10 MG TABLET PO SCH (08:57)
[2017-04-24] MEDS: ALBUTEROL/IPRATROPIUM 2.5mg-0.5mg/3ml NEB AEROSOL PRN ×2 (10:00→13:35)
[2017-04-24 13:44] VITALS: RESP 22; O2SAT 95
--- NOTE | 2017-04-24 14:39 | Discharge Summary ---
Discharge Information Date of admission: 04/23/17 14:17 Attending Physician: Flynn Guzman DO Primary care physician: Flynn Guzman DO - Discharge Diagnosis (1) Chronic obstructive pulmonary disease with (acute) exacerbation Status: Acute (2) Pneumonia Status: Acute (3) Hypoxemia Status: Acute (4) History of atrial fibrillation Status: Acute (5) Adequate anticoagulation on anticoagulant therapy Status: Acute - Laboratory Labs: 04/24/17 03:52 04/24/17 03:53 History of Present Illness HPI: Roseline is a very pleasant 76-year-old white female who was admitted through the emergency department with increased shortness of breath and hypoxemia. She has a history of severe COPD and takes Advair and DuoNeb at home. She indicates that yesterday she became acutely short of breath over her usual and was trying to wait until this morning to come into the office. However, she was becoming more dyspneic and called for EMS to take her to the ER. Upon evaluation in the ER she was indeed hypoxic her oxygen was increased she was given a dose of Solu- Medrol, azithromycin, and Rocephin. At that time I was contacted and she was admitted to the hospital. She denies fevers chills night sweats or chest pain. She just very lethargic and short of breath Hospital Course This is a general summary of the patient's hospital course. For more details refer to the complete medical record. Hospital course: Patient does appear improved. She was able to ambulate with assist and oxygen earlier today. I will decrease her Solu-Medrol to 62.5 mg IV every 6 hours she is no longer wheezing. Discharge Plan - Med Rec/Dispo [place] Instructions: COPD (Chronic Obstructive Pulmonary Disease) (GEN), Hypoxia (GEN) Prescriptions: Continue Multivitamins W-Minerals (Multivitamin) 1 cap PO DAILY #0 Ascorbic Acid (Vitamin C) 1,000 mg PO DAILY #0 Roflumilast [Daliresp] 500 mcg PO DAILY #0 Zoledronic Acid/Mannitol-Water [Reclast 5 mg/100 ml Solution] 100 ml IV YEARLY #0 Calcium Carbonate [Calcium] 1,200 mg PO DAILY #0 Ipratropium/Albuterol Sulfate [Iprat-Albut 0.5-3(2.5) mg/3 ml] 1 unit AEROSOL QID #0 Lisinopril [Prinivil] 5 mg PO DAILY Fluticasone/Salmeterol (Advair 250/50) 2 puff IH BID #0 Vitamin B Complex 1 cap PO DAILY #0 Simvastatin 20 mg PO HS #0 Cholecalciferol (Vitamin D) 1,000 unit PO DAILY #0 Sotalol HCl [Sotalol] 80 mg PO BID #0 Dabigatran Etexilate Mesylate [Pradaxa] 150 mg PO BID #0 Lansoprazole [Prevacid] 15 mg PO DAILY #0 Amlodipine Besylate 10 mg PO DAILY #0 Discontinued cefUROXime axetil [Cefuroxime] 500 mg PO Q12HR 5 Days #10 tab - Disposition 01 Discharged Home, Self-Care
== END 2017-04-24 15:05 | disposition home or self-care (01) | DRG 190 ==
LOC: MED 21:31 → ED 21:31 → MED 04-22 00:05
PROVIDERS: ADMIT Internal Medicine; ATTEND Internal Medicine

== ENCOUNTER 2017-07-02 15:56 | Observation (INO) ==
[2017-07-02 16:52] VITALS: BMI 26.5
[2017-07-02] MEDS: METHYLPREDNISOLONE SOD SUCC 125mg/2ml INJECTION IVP SCH ×2 (18:51→23:54)
[2017-07-02] MEDS: ALBUTEROL/IPRATROPIUM 2.5mg-0.5mg/3ml NEB AEROSOL SCH (19:03)
[2017-07-02] MEDS ORDERED: SIMVASTATIN 20 MG TABLET PO SCH (21:00)
[2017-07-02] MEDS: SOTALOL 80 MG TABLET PO SCH (21:49)
[2017-07-03] MEDS: METHYLPREDNISOLONE SOD SUCC 125mg/2ml INJECTION IVP SCH ×3 (00:34→13:06)
[2017-07-03] MEDS: ALBUTEROL/IPRATROPIUM 2.5mg-0.5mg/3ml NEB AEROSOL SCH ×3 (00:57→12:19)
[2017-07-03] MEDS ORDERED: PANTOPRAZOLE 20 MG TABLET PO SCH (06:30)
[2017-07-03] MEDS: SOTALOL 80 MG TABLET PO SCH (08:14)
--- NOTE | 2017-07-03 08:27 | Ultrasound Report ---
Indication: swollen LLE PROCEDURE: US venous doppler LE LT: Encounter: Initial Comparison: None Technique: Color Doppler duplex and grayscale sonographic imaging of the left lower extremity was performed. Findings: There is no evidence for acute deep venous thrombosis in the left thigh. Specifically, serial graded compression was performed from the inguinal ligament to the popliteal bifurcation, on the left thigh, demonstrating appropriate compressibility of the deep venous system. In addition, color and pulsed Doppler demonstrate appropriate spontaneous flow, variation with respiration, and augmentation with calf compression. At the ankle, normal flow is identified in the posterior tibial veins; these vessels are also normal in caliber. Impression: No evidence of acute DVT in the left lower limb. .
--- NOTE | 2017-07-03 08:33 | XRay Report ---
INDICATION: Hypoxia/COPD exacerbation PROCEDURE: CHEST 2-VIEWS UPRIGHT (PA & LAT) Encounter: Initial COMPARISON: April 24, 2017 FINDINGS: Lungs are stable in appearance with emphysema and chronic interstitial markings. No acute consolidative pneumonia, gross pleural effusion or pneumothorax. Heart size and mediastinal contours are stable. Pulmonary vascularity is unchanged. Impression: Stable chest without focal pneumonia or overt congestive failure. .
[2017-07-03] MEDS ORDERED: LISINOPRIL 5 MG TABLET PO SCH (09:00)
[2017-07-03] MEDS ORDERED: ROFLUMILAST 500 MCG TABLET PO SCH (09:00)
[2017-07-03] MEDS ORDERED: AMLODIPINE 10 MG TABLET PO SCH (09:00)
[2017-07-03] MEDS ORDERED: FUROSEMIDE 20 MG/2 ML INJECTION IVP ONE (13:05)
--- NOTE | 2017-07-03 14:23 | Discharge Summary ---
Discharge Information Date of admission: 07/02/17 16:17 Attending Physician: Flynn Guzman DO Primary care physician: Flynn Guzman DO - Discharge Diagnosis (1) Chronic obstructive pulmonary disease with (acute) exacerbation Status: Acute (2) Emphysema of lung Status: Chronic (3) History of atrial fibrillation Status: Chronic (4) Hypoxemia Status: Acute (5) Adequate anticoagulation on anticoagulant therapy Status: Chronic - Laboratory Labs: 07/02/17 17:56 07/02/17 17:56 History of Present Illness HPI: patient was admitted for acute on chronic SOB. Her SaO2 at the office was initially 77%. She was placed on O2 and admitted for 23 hour obs for imaging and IV steroids. Hospital Course This is a general summary of the patient's hospital course. For more details refer to the complete medical record. Time spent with patient: greater than 35 minutes Discharge Plan - Med Rec/Dispo [place] Instructions: COPD (Chronic Obstructive Pulmonary Disease) (GEN), Hypoxia (GEN) Prescriptions: Continue Roflumilast [Daliresp] 500 mcg PO DAILY #0 Zoledronic Acid/Mannitol-Water [Reclast 5 mg/100 ml Solution] 100 ml IV YEARLY #0 Lisinopril [Prinivil] 5 mg PO DAILY Sotalol [Betapace] 80 mg PO BID Vitamin B Complex [Super B-50 Complex] 1 each PO DAILY Fluticasone/Salmeterol 250/50 [Advair 250-50 Diskus] 1 puff INH BID Dabigatran [Pradaxa] 1 cap PO BID Multivitamin [Multivitamins] 1 each PO DAILY Calcium Carbonate [Caltrate] 1,200 mg PO DAILY Ascorbate Calcium [Vitamin C] 500 mg PO BIDWM Amlodipine Besylate [Norvasc] 10 mg PO DAILY Simvastatin 20 mg PO HS #0 guaiFENesin [Mucinex] 600 mg PO PRN Lansoprazole [Prevacid] 15 mg PO DAILY Albuterol/Ipratropium [Duoneb] 1 unit AEROSOL QID Cholecalciferol (Vitamin D3) [Vitamin D3] 1 cap PO DAILY - Disposition 01 Discharged Home, Self-Care - Dismissal Complete Discharge Instructions are:: Complete
[2017-07-03 15:24] VITALS: BP 116/65; PULSE 82; RESP 20; TEMP 97.8; O2SAT 96
== END 2017-07-03 16:45 | disposition home or self-care (01) ==
LOC: MED
PROVIDERS: ADMIT Internal Medicine; ATTEND Internal Medicine

== ENCOUNTER 2017-08-26 11:13 | Inpatient (IN) ==
--- OUTSIDE RECORDS SUMMARY | 2017-08-26 11:24 | External Medical Summary | Referral Summary ---
:1940 Author Organization [facility] Address [address] [place] [address] [place] [id number] Care Team Providers Name Role Phone Flynn Guzman Primary Care Physician Encounter VC Date(s): 09/17/16 - 09/17/16 [facility] [place] [address] [place] [address] [place] [phone] [place] Discharge Diagnosis: Umbilical hernia Discharge Disposition: 01-Home or Self Care Attending Physician: Musa Solares MD Admitting Physician: Musa Solares MD Vital Signs Most recent to oldest [Reference Range]: 1 Temperature Tympanic [36.6-38.1 degC] 37.1 degC (09/17/16 9:47 AM) Peripheral Pulse Rate [60-100 bpm] 86 bpm (09/17/16 9:47 AM) Blood Pressure [90-140/60-90 mmHg] 138/78 mmHg (09/17/16 9:47 AM) SpO2 86 % (09/17/16 9:47 AM) Problem List Condition Effective Dates Status Health Status Informant Barretts esophagus(Confirmed) Active COPD (chronic obstructive pulmonary Active disease)(Confirmed) GERD (gastroesophageal reflux Active disease)(Confirmed) HTN (hypertension)(Confirmed) Active Irregular heart beats(Confirmed) Active Arthritis(Confirmed) Active Mixed hearing loss, Active bilateral(Confirmed) perforated bowel during 2012 Active colonoscopy(Astereser)(Confirmed) Raynaud's syndrome(Confirmed) Active Allergies, Adverse Reactions, Alerts Substance Reaction Severity Status penicillin Anaphylaxis Active Medications Advair Diskus 250 mcg-50 mcg inhalation powder puffs, Inhalation, BID, 0 Refill(s) Start Date: 09/11/16 Status: OrderedamLODIPine 10 mg oral tablet 10 mg 1 tabs, Oral, Daily, # 30 tabs, 0 Refill(s) Start Date: 09/11/16 Status: OrderedB-Complex SR tabs, Oral, Daily, 0 Refill(s) Start Date: 09/11/16 Status: Orderedcyclobenzaprine 5 mg oral tablet 5 mg 1 tabs, Oral, TID, # 21 tabs, 0 Refill(s) Start Date: 09/11/16 Stop Date: 09/18/16 Status: OrderedDaliresp 500 mcg oral tablet mcg tabs, Oral, Daily, 0 Refill(s) Start Date: 09/11/16 Status: OrderedDuoNeb 0.5 mg-2.5 mg/3 mL inhalation solution 3 mL, NEB, QID, # 30 Each, 0 Refill(s) Start Date: 09/11/16 Status: Orderedlisinopril 5 mg oral tablet 5 mg 1 tabs, Oral, Daily, # 30 tabs, 0 Refill(s) Start Date: 09/11/16 Status: OrderedMucinex 600 mg oral tablet, extended release 600 mg 1 tabs, Oral, q12hr, # 14 tabs, 0 Refill(s) Start Date: 09/11/16 Stop Date: 09/18/16 Status: Orderedmultivitamin Daily, 0 Refill(s) Start Date: 09/11/16 Status: OrderedPercocet 5/325 oral tablet 1 tabs, Oral, q4hr, as needed for pain, 0 Refill(s) Start Date: 09/11/16 Status: OrderedPradaxa 150 mg oral capsule 150 mg 1 caps, Oral, BID, # 60 caps, 0 Refill(s) Start Date: 09/11/16 Status: OrderedPrevacid 15 mg oral delayed release capsule 15 mg 1 caps, Oral, Daily, # 90 caps, 0 Refill(s) Start Date: 09/11/16 Status: OrderedReclast mg, IV, Once, 0 Refill(s) Start Date: 09/11/16 Status: Orderedsimvastatin 20 mg oral tablet 20 mg 1 tabs, Oral, Bedtime (once a day), # 30 tabs, 0 Refill(s) Start Date: 09/11/16 Status: Orderedsotalol 80 mg oral tablet 80 mg 1 tabs, Oral, BID, # 60 tabs, 0 Refill(s) Start Date: 09/11/16 Status: OrderedVitamin D with Minerals oral tablet 1000iu, Oral, Daily, # 30 tabs, 0 Refill(s) Start Date: 09/12/16 Status: Ordered Results No data available for this section Immunizations No data available for this section Procedures Procedure Date Related Diagnosis Body Site Colonoscopy1 03/16/13 Colonoscopy2 01/19/13 Esophagogastroduodenoscopy and biopsy3 11/2010 Esophagogastroduodenoscopy and biopsy4 11/29/08 Colonoscopy5 10/07/06 Esophagogastroduodenoscopy 09/2006 Esophagogastroduodenoscopy 08/2003 H/O partial resection of colon6 History of vaginal hysterectomy right hemicolectomy(Beck)7 1Dr. Bvndpw5D. Xxuwtl9C/O Barretts, [id number]. [id number] at time of [id number] bowel during colonoscopy (Thomas) 2012 Social History Social History Type Response Smoking Status Former smoker; Date Last Use: 2012 Assessment and Plan Extracted from: Title: Ambulatory Patient Education Author: Musa Solares MD Date: 09/17/16 Surgery Open Hernia Repair Open hernia repair is surgery to fix a hernia. A hernia occurs when an internal organ or tissue pushes out through a weak spot in the abdominal wall muscles . Hernias commonly occur in the groin and around the navel. Most hernias tend to get worse over time. Surgery is often done to prevent the hernia from getting bigger, becoming uncomfortable, or becoming an emergency. Emergency surgery may be needed if abdominal contents get stuck in the opening (incarcerated hernia) or the blood supply gets cut off ( strangulated hernia). In an open repair, a large cut (incision) is made in the abdomen to perform the surgery. LET YOUR HEALTH CARE PROVIDER KNOW ABOUT: Any allergies you have. All medicines you are taking, including vitamins, herbs, eye drops, creams , and schv-ovd-mbyqfco medicines. Previous problems you or members of your family have had with the use of anesthetics. Any blood disorders you have. Previous surgeries you have had. Medical conditions you have. RISKS AND COMPLICATIONS Generally, this is a safe procedure. However, as with any procedure, complications can occur. Possible complications include: Infection. Bleeding. Nerve injury. Chronic pain. The hernia can come back. Injury to the intestines. BEFORE THE PROCEDURE Ask your health care provider about changing or stopping any regular medicines. Avoid taking aspirin or blood thinners as directed by your health care provider. Do noteat or drink anything after midnight the night before surgery. If you smoke, do not smoke for at least 2 weeks before your surgery. Do not drink alcohol the day before your surgery. Let your health care provider know if you develop a cold or any infection before your surgery. Arrange for someone to drive you home after the procedure or after your hospital stay. Also arrange for someone to help you with activities during recovery. PROCEDURE Small monitors will be put on your body. They are used to check your heart , blood pressure, and oxygen level. An IV access tube will be put into one of your veins. Medicine will be able to flow directly into your body through this IV tube. You might be given a medicine to help you relax (sedative). You will be given a medicine to make you sleep (general anesthetic). A breathing tube may be placed into your lungs during the procedure. A cut (incision) is made over the hernia defect, and the contents are pushed back into the abdomen. If the hernia is small, stitches may be used to bring the muscle edges back together. Typically, a surgeon will place a mesh patch made of man-made material ( synthetic) to cover the defect. The mesh is sewn to healthy muscle. This reduces the risk of the hernia coming back. The tissue and skin over the hernia are then closed with stitches or raffi. If the hernia was large, a drain may be left in place to collect excess fluid where the hernia used to be. Bandages (dressings) are used to cover the incision. AFTER THE PROCEDURE You will be taken to a recovery area where your progress will be monitored. If the hernia was small or in the groin (inguinal) region, you will likely be allowed to go home once you are awake, stable, and taking fluids well. If the hernia was large, you may have to wait for your bowel function to return. You may need to stay in the hospital for 23 days until you can eat and your pain is controlled. A drain may be lef t in place for 57 days. You will be taught how to care for the drain. This information is not intended to replace advice given to you by your health care provider. Make sure you discuss any questions you have with your health care provider. Document Released: 09/23/2001 Document Revised: 03/10/2016 Document Reviewed: 11/09/2013 [employer] Patient Education 2016 [employer] No follow up information was provided. Extracted from: Title: Office Visit Note Author: Musa Solares MD Date: 09/17/16 Assessment/Plan 1.Umbilical hernia Ordered: Office Visit Level 4 New [address] Plan:Pros and cons of proceeding with umbilical herniorrhaphy was discussed with patient. After fair amount of discussion it was elected to follow patient from clinical standpoint. Patient to r eturn to office if developsperiumbilical pain/increasing size of umbilical hernia.: I did review the patient's chart including office note performed by her PCP from August 26, 2016.I spent a fair amount of time discussing hernias as an entity with the patient. I inf ormed the patient thatprior to proceeding with any type of surgical interventionI always try to assess the risk versus benefits.I do feel that her operative risk isincreased as result of her severe COPD.I informed the patient that the risk of not proceeding with surgery isthe development of a incarcerated/strangulatedumbilical hernia. Statistically the risk ofthe patient develo ping astrangulatedherniais likely on the order about 1-2 percent per year.Given the fact that her hernia is fairly broad-based and easily reducible I do feel that she is at a lower risk than n ormalfor the development of astrangulatedhernia.Given her severe COPD I do feel her operative risk is definitely increased.I did discuss the pros and cons of proceeding with an elective um bilical herniorrhaphy which I believe could be carried out undersome slight conscious sedation and local anesthetic.Patient informed me that she did not want to have surgeryunless it was "comple tely necessary".I informed the patient thatit would be my recommendation therefore that we notproceed with surgery and continue to follow her from a clinical standpoint.I informed the patie nt that if she would ever develop a hard painful "lump"at the level of her umbilicus at this could be a surgical emergency and she should seek out medical attention in a timely fashion.If on the o ther hand she began to develop some increasing her local discomfort or noted that herumbilical hernia was becoming larger she was to return back to the officeon elective basis for reevaluation.O richardwise patient should return to her PCP for ongoing medical care.
[2017-08-26] MEDS ORDERED: ALBUTEROL/IPRATROPIUM 2.5mg-0.5mg/3ml NEB AEROSOL ONE ×3 (11:25→11:59)
--- NOTE | 2017-08-26 11:47 | Emergency Department Report ---
General Adult HPI - General Chief complaint: Chest Pain Stated complaint: chest pain Source: patient, EMS, old records reviewed Mode of arrival: EMS Limitations: no limitations - History of Present Illness HPI narrative: Patient is a 76-year-old female, history of CHF, COPD. Patient does use 3 l by oxygen by nasal cannula at home, also does have nebulizer treatments. Patient woke up this morning approximately 8:30 with severe shortness of air and chest pain. Patient did take albuterol treatment at home without relief so patient called EMS. On arrival patient was placed on a nonrebreather, given albuterol in route and brought to the ER for evaluation. - Related Data Home Medications Medication Instructions Recorded Confirmed Simvastatin 20 mg PO HS #0 06/08/12 08/26/17 Roflumilast [Daliresp] 500 mcg PO DAILY #0 12/23/12 08/26/17 Zoledronic Acid/Mannitol-Water 100 ml IV YEARLY #0 11/23/15 08/26/17 [Reclast 5 mg/100 ml Solution] Lisinopril [Prinivil] 5 mg PO DAILY 04/23/17 08/26/17 Albuterol/Ipratropium [Duoneb] 1 unit AEROSOL QID 07/03/17 08/26/17 Amlodipine Besylate [Norvasc] 10 mg PO DAILY 07/03/17 08/26/17 Ascorbate Calcium [Vitamin C] 100 mg PO DAILY 07/03/17 08/26/17 Calcium Carbonate [Caltrate] 1,200 mg PO DAILY 07/03/17 08/26/17 Cholecalciferol (Vitamin D3) 1,000 unit PO DAILY 07/03/17 08/26/17 [Vitamin D3] Dabigatran [Pradaxa] 150 mg PO BID 07/03/17 08/26/17 Fluticasone/Salmeterol 250/50 1 puff INH BID 07/03/17 08/26/17 [Advair 250-50 Diskus] Lansoprazole [Prevacid] 15 mg PO DAILY 07/03/17 08/26/17 Multivitamin [Multivitamins] 1 cap PO DAILY 07/03/17 08/26/17 Sotalol [Betapace] 40 mg PO BID 07/03/17 08/26/17 Vitamin B Complex [Super B-50 1 cap PO DAILY 07/03/17 08/26/17 Complex] Allergies Allergy/AdvReac Type Severity Reaction Status Date / Time Penicillins Allergy Severe Swelling Verified 08/26/17 11:42 Review of Systems Constitutional: Reports: fever, weakness. Denies: chills Eyes: Denies: eye discharge, vision change ENT: Denies: ear pain, throat pain, dental pain Cardiovascular: Reports: chest pain, dyspnea on exertion. Denies: palpitations Respiratory: Reports: dyspnea, wheezes. Denies: cough Gastrointestinal: Reports: abdominal pain. Denies: nausea, vomiting, diarrhea Genitourinary: Denies: dysuria, frequency, hematuria Musculoskeletal: Denies: back pain Neurological: Denies: headache, weakness Psychiatric: Denies: anxiety, depression Endocrine: Denies: fatigue Hematological/Lymphatic: Denies: easy bleeding Allergic/Immunologic: Denies: facial swelling PFSH Patient Stated Medical History Cataracts Yes: REMOVED Other HEENT Yes: Wears glasses Cardiac Arrhythmia Yes: Afib Hypertension Yes Chronic Obstructive Pulmonary Yes Disease (COPD) Pneumonia Yes Other GI Yes: PT REPORTS DIARRHEA Other Yes: URINARY FREQUENCY Sepsis Yes: JULY 2016 - Social History Smoking status: Former smoker second hand exposure: No Substance use type: does not use Alcohol intake frequency: does not drink Housing: house Household members: none Does patient use chewing tobacco?: No Current residence: Apartment/Private Home Physical Exam - General General appearance: alert, in distress - Eye Eye exam: Present: PERRL, EOMI - Neck Neck exam: Present: full ROM, trachea midline - Chest Chest inspection: Present: symmetric chest wall rise. Absent: tenderness - Respiratory Respiratory exam: Present: wheezes, accessory muscle use, prolonged expiratory phase, other (patient very tight minimal air movement cannot appreciate any crackles at this time). Absent: crackles - Cardiovascular Cardiovascular exam: Present: regular rate, normal rhythm, normal heart sounds - Abdominal Exam Abdominal exam: Present: soft, normal bowel sounds. Absent: distention, tenderness - Back Exam Back exam: Present: full ROM. Absent: tenderness, CVA tenderness (R), CVA tenderness (L), muscle spasm, paraspinal tenderness - Skin Skin exam: Present: warm, dry - Neurological Exam Neurological exam: Present: alert, oriented X3 - Psychiatric Psychiatric exam: Present: normal affect, normal mood Course Vital Signs Temperature 99.1 F 08/26/17 11:14 Pulse Rate 137 H 08/26/17 11:14 Respiratory Rate 49 H 08/26/17 11:14 Blood Pressure 156/96 H 08/26/17 11:14 Pulse Oximetry 89 L 08/26/17 11:14 Temperature 101.2 F H 08/26/17 14:04 Pulse Rate 114 H 08/26/17 16:01 Respiratory Rate 23 08/26/17 16:04 Blood Pressure 119/61 08/26/17 14:04 Pulse Oximetry 99 08/26/17 16:04 Medical Decision Making - MDM Narrative Medical decision making narrative: At 1246, chest x-ray was returned with elevated white count showing possible pneumonia, at this time sepsis was entertained blood cultures and lactate were ordered Levaquin 750 order to be hanged Discuss case with Dr. Guzman will admit to the CCU on BiPAP - Medical Records Medical records reviewed: Yes: I reviewed the patient's medical records. - Lab Data Lab results reviewed: Yes: I reviewed the patient's lab results. Result diagrams: 08/26/17 11:00 08/26/17 11:00 Lab Results 08/26/17 08/26/17 08/26/17 Range/Units 11:00 11:00 11:00 WBC 19.2 H (4.5-11.0) T/MM3 RBC 4.71 (4.00-5.20) M/MM3 Hgb 13.7 (12-16) GM/DL Hct 44.4 (36-46) % MCV 94.3 (80-100) UM3 MCH 29.1 (26-34) UUG MCHC 30.9 L (31-37) GM/DL RDW Std Deviation 49.1 (36.9-50.2) FL Plt Count 206 (130-400) T/MM3 MPV 11.4 (9.4-12.4) UM3 Immature Gran % (Auto) Not performed Neut % (Auto) Not performed Lymph % (Auto) Not performed [place] % (Auto) Not performed Eos % (Auto) Not performed Baso % (Auto) Not performed Neut # (Auto) Not performed Lymph # (Auto) Not performed [place] # (Auto) Not performed Eos # (Auto) Not performed Baso # (Auto) Not performed Abs Immat Gran (auto) Not performed Neutrophils % (Manual) 85.0 H (33-66) % Band Neutrophils % 9.0 H (0-6) % Lymphocytes % (Manual) 1.0 L (23-45) % Monocytes % (Manual) 5.0 (0-9.0) % Neutrophils # (Manual) 16.3 H (1.8-7.7) T/MM3 Band Neutrophils # 1.7 T/MM3 Lymphocytes # (Manual) 0.2 L (1-4.8) T/MM3 Monocytes # (Manual) 1.0 H (0-0.8) T/MM3 RBC Morph Comment Normal D-Dimer 195 (0-230) NG/ML Turbidity < 20 (0-20) Sodium 148 H (134-144) MEQ/L Potassium 4.1 (3.6-5) MEQ/L Chloride 99 (98-107) MEQ/L Carbon Dioxide 36 H (22-30) MEQ/L Anion Gap 13 (5-15) meq/L BUN 13.0 (7-17) MG/DL Creatinine 0.6 L (0.7-1.2) mg/dL GFR Calculation 97 BUN/Creatinine Ratio 22 (6-26) RATIO Glucose 131 H (65-110) MG/DL Calculated Osmolality 286 H (261-280) MOSM/KG Calcium 10.2 (8.4-10.2) MG/DL Total Bilirubin 0.70 (0.20-1.30) MG/DL Icterus Index < 2 (0-7) AST 20 (14-36) U/L ALT 17 (1-35) U/L Alkaline Phosphatase 63 (38-126) U/L Troponin I < 0.012 (0-0.12) ng/ml NT-Pro-B Natriuret Pep 265 H (0-175) pg/mL Total Protein 7.8 (6.3-8.2) g/dL Albumin 4.8 (3.5-5.0) g/dL Globulin 3.0 (2.4-3.6) G/DL Albumin/Globulin Ratio 1.6 (1.1-2.2) RATIO Plasma Lactate (0.6-2.2) MMOL/L Specimen Hemolysis < 15 (0-25) 05/16/18 Range/Units 12:57 WBC (4.5-11.0) T/MM3 RBC (4.00-5.20) M/MM3 Hgb (12-16) GM/DL Hct (36-46) % MCV (80-100) UM3 MCH (26-34) UUG MCHC (31-37) GM/DL RDW Std Deviation (36.9-50.2) FL Plt Count (130-400) T/MM3 MPV (9.4-12.4) UM3 Immature Gran % (Auto) Neut % (Auto) Lymph % (Auto) [place] % (Auto) Eos % (Auto) Baso % (Auto) Neut # (Auto) Lymph # (Auto) [place] # (Auto) Eos # (Auto) Baso # (Auto) Abs Immat Gran (auto) Neutrophils % (Manual) (33-66) % Band Neutrophils % (0-6) % Lymphocytes % (Manual) (23-45) % Monocytes % (Manual) (0-9.0) % Neutrophils # (Manual) (1.8-7.7) T/MM3 Band Neutrophils # T/MM3 Lymphocytes # (Manual) (1-4.8) T/MM3 Monocytes # (Manual) (0-0.8) T/MM3 RBC Morph Comment D-Dimer (0-230) NG/ML Turbidity (0-20) Sodium (134-144) MEQ/L Potassium (3.6-5) MEQ/L Chloride (98-107) MEQ/L Carbon Dioxide (22-30) MEQ/L Anion Gap (5-15) meq/L BUN (7-17) MG/DL Creatinine (0.7-1.2) mg/dL GFR Calculation BUN/Creatinine Ratio (6-26) RATIO Glucose (65-110) MG/DL Calculated Osmolality (261-280) MOSM/KG Calcium (8.4-10.2) MG/DL Total Bilirubin (0.20-1.30) MG/DL Icterus Index (0-7) AST (14-36) U/L ALT (1-35) U/L Alkaline Phosphatase (38-126) U/L Troponin I (0-0.12) ng/ml NT-Pro-B Natriuret Pep (0-175) pg/mL Total Protein (6.3-8.2) g/dL Albumin (3.5-5.0) g/dL Globulin (2.4-3.6) G/DL Albumin/Globulin Ratio (1.1-2.2) RATIO Plasma Lactate 1.5 (0.6-2.2) MMOL/L Specimen Hemolysis (0-25) - Radiology Data Radiology results reviewed: Yes: I reviewed the patient's radiology results. Right middle and lower lobe infiltrates Disposition Clinical Impression: CHEST PAIN Right middle lobe pneumonia Qualifiers: Pneumonia type: due to unspecified organism Qualified Code(s): J18.1 - Lobar pneumonia, unspecified organism Right lower lobe pneumonia Qualifiers: Pneumonia type: due to unspecified organism Qualified Code(s): J18.1 - Lobar pneumonia, unspecified organism [place] [facility] [place] Condition: Improved - Seen By: physician
--- NOTE | 2017-08-26 12:11 | XRay Report ---
Indication: chest pain shortness of breath on BiPAP PROCEDURE: XR chest 1V: Encounter: Initial Comparison: July 02, 2017 Findings: Emphysema and chronic interstitial opacities. Worsening airspace disease in the right midlung. Possible trace left effusion. No pneumothorax. Heart size and mediastinal contours are stable. Pulmonary vascularity is stable. Impression: Developing right midlung infiltrate could represent pneumonia. .
[2017-08-26] MEDS: LEVOFLOXACIN PB 750 MG/150 ML BAG IV SCH (13:15)
[2017-08-26 14:14] VITALS: BMI 26.4
[2017-08-26] MEDS: AZITHROMYCIN IV 500 MG in NS 250ml 250 ML IV SCH (15:00)
[2017-08-26] MEDS: ALBUTEROL/IPRATROPIUM 2.5mg-0.5mg/3ml NEB AEROSOL SCH ×2 (16:01→19:50)
[2017-08-26] MEDS: MORPHINE SULFATE 4mg INJECTION IVP PRN ×2 (16:10→17:13)
[2017-08-26] MEDS ORDERED: NS 1,000 ML IV ONE ×2 (16:11→19:18)
--- NOTE | 2017-08-26 16:28 | Internal Med History&Physical ---
Internal Medicine HPI Chief complaint: chest pain with shortness of breath History of present illness: Roseline Morrow very pleasant 76-year-old white female. She presented to the emergency room with new onset chest pain starting this morning about 8:30 while she was at home. She also had increasing shortness of breath. Upon arrival to the ER, she was tachypnea And complaining of right sided chest pain that radiated to the sternum. Her troponin was negligible. The d-dimer was negative. She has also been on Pradaxa twice daily for atrial fibrillation. She has significant COPD and has been hospitalized twice in the last 6 months for acute exacerbations of COPD with hypoxemia. She is on BiPAP at home at night and oxygen during the day. Review of Systems - Constitutional Constitutional: Present: fatigue, lethargy - Cardiovascular Cardiovascular: Present: chest pain, dyspnea on exertion Vascular: Present: pedal edema. Absent: unilateral swelling - Respiratory Respiratory: Present: cough, dyspnea, dyspnea on exertion - Gastrointestinal Gastrointestinal: Present: abdominal pain, diarrhea. Absent: dyspepsia, dysphagia, hematemesis, hematochezia, melena, nausea, vomiting - Integumentary/Breasts Integumentary: Absent: pruritus, rash, wounds, jaundice - Neurological Neurological: Absent: confusion, dizziness, focal weakness, frequent falls - Psychiatric Psychiatric: Absent: abnormal sleep pattern, anhedonia, anxiety, depression - Hematologic/Lymphatic Hematologic/Lymphatic: Absent: easy bleeding, easy bruising, lymphadenopathy - Allergic/Immunologic Allergic/Immunologic: Absent: tongue swelling, itchy eyes, lip swelling PFSH Patient Stated Medical History Cataracts Yes: REMOVED Other HEENT Yes: Wears glasses Cardiac Arrhythmia Yes: Afib Hypertension Yes Chronic Obstructive Pulmonary Yes Disease (COPD) Pneumonia Yes Other GI Yes: PT REPORTS DIARRHEA Other Yes: URINARY FREQUENCY Sepsis Yes: JULY 2016 Medical History Updates: Hernia repair, Raynaud's disease, severe pulmonary hypertension, Connor's esophagus, osteoporosis, COPD, hyperlipidemia Surgical History: Colonoscopy 2012, EGD 2010, hysterectomy 1999, spine surgery 2015, tonsils and adenoids 194. Family History: Colon cancer (sibling), heart disease (sibling), high blood pressure (mother), CVA (father), thyroid disease (sibling) - Social History Smoking status: Former smoker second hand exposure: No Substance use type: does not use Alcohol intake frequency: does not drink Housing: house Household members: none Does patient use chewing tobacco?: No Current residence: Apartment/Private Home Medications Home Medications Medication Instructions Recorded Confirmed Type Simvastatin 20 mg PO HS #0 06/08/12 08/26/17 History Roflumilast [Daliresp] 500 mcg PO DAILY #0 12/23/12 08/26/17 History Zoledronic Acid/Mannitol-Water 100 ml IV YEARLY #0 11/23/15 08/26/17 History [Reclast 5 mg/100 ml Solution] Lisinopril [Prinivil] 5 mg PO DAILY 04/23/17 08/26/17 History Albuterol/Ipratropium [Duoneb] 1 unit AEROSOL QID 07/03/17 08/26/17 History Amlodipine Besylate [Norvasc] 10 mg PO DAILY 07/03/17 08/26/17 History Ascorbate Calcium [Vitamin C] 100 mg PO DAILY 07/03/17 08/26/17 History Calcium Carbonate [Caltrate] 1,200 mg PO DAILY 07/03/17 08/26/17 History Cholecalciferol (Vitamin D3) 1,000 unit PO DAILY 07/03/17 08/26/17 History [Vitamin D3] Dabigatran [Pradaxa] 150 mg PO BID 07/03/17 08/26/17 History Fluticasone/Salmeterol 250/50 1 puff INH BID 07/03/17 08/26/17 History [Advair 250-50 Diskus] Lansoprazole [Prevacid] 15 mg PO DAILY 07/03/17 08/26/17 History Multivitamin [Multivitamins] 1 cap PO DAILY 07/03/17 08/26/17 History Sotalol [Betapace] 40 mg PO BID 07/03/17 08/26/17 History Vitamin B Complex [Super B-50 1 cap PO DAILY 07/03/17 08/26/17 History Complex] Allergies Allergy/AdvReac Type Severity Reaction Status Date / Time Penicillins Allergy Severe Swelling Verified 08/26/17 11:42 Exam Vital signs: Temperature 101.2 F H 08/26/17 14:04 Pulse Rate 120 H 08/26/17 14:04 Respiratory Rate 23 08/26/17 16:04 Blood Pressure 119/61 08/26/17 14:04 Pulse Oximetry 99 08/26/17 16:04 - Constitutional mild distress, cooperative - Routine HEENT Exam Head: Present: normocephalic, atraumatic Eye: Present: EOMI, PERRL, conjunctivae pink. Absent: conjunctival icterus ENT: Present: mucous membranes moist, oropharynx clear, nares patent - Routine Neck Exam Present: supple, full ROM. Absent: JVD, carotid bruit, lymphadenopathy, thyromegaly - Routine Chest/Breast/Axilla Exam Chest wall: Present: tenderness Axillae: Absent: lymphadenopathy - Routine Respiratory Exam Present: accessory muscle use, patient mechanically ventilated, decreased breath sounds, rales (right lower lobe) - Routine Cardiovascular Exam Present: tachycardia, irregularly irregular (with occasional PVC). Absent: S3, S4 - Routine Abdominal Exam Present: tenderness, distended. Absent: firm, rigid - Routine Extremities Exam Present: edema, amputation (fingertips secondary to Raynaud's disease). Absent : cyanosis - Routine Skin Exam Present: intact. Absent: cyanosis, erythema, mottling, petechiae, urticaria, lesions, jaundice - Routine Neurological Exam Present: alert, oriented X3, CN II-XII intact Internal Medicine Results - Labs CBC & Chem 7: 08/26/17 11:00 08/26/17 11:00 - ECG Data Tracing #2 Arrhythmias present: sinus tach, PVC's - Imaging and Cardiology Chest x-ray Status: image reviewed by me (right middle and lower lobe infiltrate) Assessment and Plan - Assessment and Plan (1) Respiratory failure with hypoxia Current visit: Yes Status: Acute (2) Pneumonia Current visit: No Status: Acute Patient started on Levaquin and azithromycin. (3) Chest pain Current visit: Yes Status: Acute (4) Hypoxemia Current visit: No Status: Acute Currently on BiPAP in the ICU (5) Chronic obstructive pulmonary disease with (acute) exacerbation Current visit: No Status: Acute (6) History of atrial fibrillation Current visit: No Status: Chronic On sotalol and Pradaxa (7) Adequate anticoagulation on anticoagulant therapy Current visit: No Status: Chronic Sepsis Assessment - Evaluation SIRS Criteria: temperature > 100.9, pulse > 90 beats/minute, WBC > 12,000, RR > 20 Severe Sepsis: hypotension (SBP <90 or MAP <65 x2 readings), new need for BIPAP or mechanical ventilation - Focused Exam-within 6 hours of IVF Bolus Respiratory exam: Present: accessory muscle use, patient mechanically ventilated , dyspnea, crackles (most notably in the right lower lobe) Cardiovascular exam: Present: tachycardia. Absent: RRR, S3, S4 Peripheral pulse strength: Bounding Peripheral pulse location: Radial Skin Temperature: Cool
[2017-08-26] MEDS: SOTALOL 80 MG TABLET PO SCH ×3 (17:20→19:11)
[2017-08-26] MEDS: BUDESONIDE INH.SOLN 0.5mg/2ml NEB AEROSOL SCH (19:50)
[2017-08-26] MEDS: SIMVASTATIN 20 MG TABLET PO SCH (20:37)
[2017-08-27] MEDS: MORPHINE SULFATE 4mg INJECTION IVP PRN ×4 (05:13→21:49)
[2017-08-27] MEDS: SOTALOL 80 MG TABLET PO SCH ×2 (06:37→17:22)
[2017-08-27] MEDS: PANTOPRAZOLE 40 MG TABLET PO SCH (06:37)
[2017-08-27] MEDS: BUDESONIDE INH.SOLN 0.5mg/2ml NEB AEROSOL SCH ×2 (06:47→19:20)
[2017-08-27] MEDS: ALBUTEROL/IPRATROPIUM 2.5mg-0.5mg/3ml NEB AEROSOL SCH ×2 (06:47→10:55)
--- NOTE | 2017-08-27 08:14 | XRay Report ---
Indication: RLL pneumonia PROCEDURE: XR chest 1V: Encounter: Initial Comparison: August 26, 2017 Findings: Worsening airspace consolidation in the right upper lobe along the minor fissure. Hazy right lower lobe airspace disease is unchanged. Emphysema. No pneumothorax. Small right effusion. Heart size and mediastinal contours are stable. Pulmonary vascularity is unchanged. Impression: Increasing right upper lobe consolidation. .
--- NOTE | 2017-08-27 13:52 | Internal Med Progress Note ---
Internal Medicine Subjective Roseline seems to have improved nicely overnight. She is now on high flow nasal cannula and tolerating it well. Her heart rate is below 100, sinus, with frequent PVCs. She still has the right-sided chest pain which she likens to her previous bouts of pleurisy. She still short of breath with cough. No abdominal pain. Her chest x-ray looks worse from the day before and her white blood cell count went up slightly to 20,000. Exam Vital Signs: Temperature 99.2 F 08/27/17 11:08 Pulse Rate 82 08/27/17 12:21 Respiratory Rate 28 H 08/27/17 11:30 Blood Pressure 143/65 H 08/27/17 11:30 Pulse Oximetry 94 08/27/17 11:30 Telemetry Rhythm: Sinus Rhythm Telemetry Ectopy: Frequent PVC Height/Weight/BMI: Height 5 ft 5 in Weight 74.3 kg Body Mass Index 26.4 - Constitutional Present: no acute distress, cooperative - Routine HEENT Exam Head: Present: normocephalic, atraumatic Eye: Present: EOMI, PERRL, conjunctivae pink. Absent: conjunctival icterus, scleral injection ENT: Present: mucous membranes moist, oropharynx clear, nares patent - Routine Neck Exam Present: supple. Absent: lymphadenopathy, thyromegaly - Routine Chest/Breast/Axilla Exam Chest wall: Present: tenderness Axillae: Absent: lymphadenopathy - Routine Respiratory Exam Present: dyspnea, rales (on the right), rhonchi - Routine Cardiovascular Exam Present: RRR (with frequent ectopy), no murmur. Absent: S3, S4 - Routine Abdominal Exam Present: soft, non distended, non tender - Routine Extremities Exam Present: edema. Absent: cyanosis, clubbing - Routine Skin Exam Present: intact. Absent: cyanosis, erythema, mottling, petechiae, jaundice - Routine Neurological Exam Present: alert, oriented X3, CN II-XII intact - Routine Psychiatric Exam Present: normal affect, normal thought process, cooperative, good insight, good judgment. Absent: depressed, anxious Internal Medicine Results - Labs CBC & Chem 7: 08/27/17 05:07 08/27/17 05:07 Labs: Short CBC 08/27/17 Range/Units 05:07 WBC 20.0 H (4.5-11.0) T/MM3 Hgb 11.4 L D (12-16) GM/DL Hct 37.1 D (36-46) % Plt Count 170 (130-400) T/MM3 BMP 08/27/17 05:07 Sodium 144 Potassium 3.6 Chloride 104 Carbon Dioxide 29 BUN 16.0 Creatinine 0.7 Glucose 90 Calcium 8.8 D Cardiac Enzymes 08/27/17 Range/Units 05:07 Troponin I 0.033 D (0-0.12) ng/ml Liver Function 08/27/17 Range/Units 05:07 Total Bilirubin 0.60 (0.20-1.30) MG/DL AST 11 L (14-36) U/L ALT 13 (1-35) U/L Alkaline Phosphatase 41 D (38-126) U/L Albumin 3.8 (3.5-5.0) g/dL - Imaging and Cardiology Chest x-ray Status: image reviewed by me Additional comments: Appears worsened Progress Note-A&P - Time Spent With Patient Total time spent is greater than 50% in coordination of care (as documented) at patient's floor/unit and/or counseling patient: 25 - 35 minutes (1) Respiratory failure with hypoxia Status: Acute Assessment and plan: Improved now on high flow nasal cannula Current Visit: Yes (2) Pneumonia Status: Acute Current Visit: No (3) Chest pain Status: Acute Assessment and plan: Consistent with pleuritic chest pain Current Visit: Yes (4) Hypoxemia Status: Acute Current Visit: No (5) Chronic obstructive pulmonary disease with (acute) exacerbation Status: Acute Current Visit: No (6) History of atrial fibrillation Status: Chronic Current Visit: No (7) Adequate anticoagulation on anticoagulant therapy Status: Chronic Current Visit: No - Assessment and Plan If Roseline continues to improve at this rate, I would move her to the medical floor tomorrow. Hospital Course Summary Disclaimer: The visit summary below is not to be considered part of the above Progress Note.
[2017-08-27] MEDS: AZITHROMYCIN IV 500 MG in NS 250ml 250 ML IV SCH (13:55)
[2017-08-27] MEDS: LEVOFLOXACIN PB 750 MG/150 ML BAG IV SCH (15:30)
[2017-08-27] MEDS: ALBUTEROL/IPRATROPIUM 2.5mg-0.5mg/3ml NEB IPPB SCH ×2 (16:16→19:20)
[2017-08-27] MEDS ORDERED: BUDESONIDE INH.SOLN 0.5mg/2ml NEB AEROSOL SCH (19:18)
[2017-08-27] MEDS: SIMVASTATIN 20 MG TABLET PO SCH (20:01)
[2017-08-27] MEDS: SALINE FLUSH 10ml SYRINGE IVF PRN (20:03)
[2017-08-28] MEDS: ACETAMINOPHEN 325 MG TABLET PO PRN ×2 (01:18→21:29)
[2017-08-28] MEDS: MORPHINE SULFATE 4mg INJECTION IVP PRN ×3 (04:27→22:32)
[2017-08-28] MEDS: SALINE FLUSH 10ml SYRINGE IVF PRN ×2 (04:28→12:54)
[2017-08-28] MEDS: PANTOPRAZOLE 40 MG TABLET PO SCH (05:38)
[2017-08-28] MEDS: SOTALOL 80 MG TABLET PO SCH ×2 (05:38→19:50)
[2017-08-28] MEDS: ALBUTEROL/IPRATROPIUM 2.5mg-0.5mg/3ml NEB IPPB SCH ×4 (06:48→19:00)
[2017-08-28] MEDS: BUDESONIDE INH.SOLN 0.5mg/2ml NEB AEROSOL SCH ×2 (06:48→19:00)
--- NOTE | 2017-08-28 08:30 | XRay Report ---
Indication: Right sided pneumonia PROCEDURE: XR chest 1V: Encounter: Initial Comparison: August 27, 2017 Findings: Airspace consolidation in the peripheral right upper lobe is slightly improved. Hyperinflation and emphysematous changes are again noted. Mild right lower lobe airspace disease is stable. Trace right effusion. No pneumothorax. Cardiomediastinal contours and pulmonary vascularity are stable. Impression: Improving right-sided pneumonia. .
[2017-08-28] MEDS: LEVOFLOXACIN PB 750 MG/150 ML BAG IV SCH (12:53)
--- NOTE | 2017-08-28 13:26 | Internal Med Progress Note ---
Internal Medicine Subjective Roseline appears to have improved a little bit more. She did have episodes of sinus tachycardia overnight and again this morning. She is now on high flow nasal cannula and tolerating it well. Her chest x-ray appears slightly improved from the day before. Her white count is coming down for the first time, it is now down to 13,000 she was able to sit up to a chair but she becomes quite dyspneic with any movements. Exam Vital Signs: Temperature 98.3 F 08/28/17 12:00 Pulse Rate 113 H 08/28/17 12:00 Respiratory Rate 16 08/28/17 10:27 Blood Pressure 121/60 08/28/17 06:00 Pulse Oximetry 96 08/28/17 06:48 Telemetry Rhythm: Sinus Tachycardia Telemetry Ectopy: Frequent PVC Height/Weight/BMI: Height 5 ft 5 in Weight 74.2 kg Body Mass Index 26.4 - Constitutional Present: mild distress, cooperative - Routine HEENT Exam Head: Present: normocephalic, atraumatic Eye: Present: EOMI, PERRL, conjunctivae pink. Absent: conjunctival icterus, scleral injection ENT: Present: mucous membranes moist, nares patent - Routine Neck Exam Absent: JVD, lymphadenopathy, thyromegaly - Routine Chest/Breast/Axilla Exam Chest wall: Absent: tenderness Axillae: Absent: lymphadenopathy - Routine Respiratory Exam Present: accessory muscle use, dyspnea, rhonchi, distant breath sounds - Routine Cardiovascular Exam Present: no murmur, tachycardia - Routine Abdominal Exam Present: soft, normoactive bowel sounds, non distended, non tender. Absent: rebound, guarding, rigid - Routine Extremities Exam Absent: cyanosis, clubbing, calf tenderness - Routine Skin Exam Present: intact. Absent: erythema, mottling, petechiae, urticaria, jaundice - Routine Neurological Exam Present: alert, oriented X3 - Routine Psychiatric Exam Present: normal affect, normal thought process, cooperative, good insight, good judgment Internal Medicine Results - Labs CBC & Chem 7: 08/28/17 04:33 08/28/17 04:33 Labs: Short CBC 08/28/17 Range/Units 04:33 WBC 13.8 H (4.5-11.0) T/MM3 Hgb 10.9 L (12-16) GM/DL Hct 35.2 L (36-46) % Plt Count 148 (130-400) T/MM3 BMP 08/28/17 04:33 Sodium 142 Potassium 3.5 L Chloride 104 Carbon Dioxide 30 BUN 13.0 Creatinine 0.6 L Glucose 120 H Calcium 8.8 Liver Function 08/28/17 Range/Units 04:33 Total Bilirubin 0.50 (0.20-1.30) MG/DL AST 10 L (14-36) U/L ALT 12 (1-35) U/L Alkaline Phosphatase 47 (38-126) U/L Albumin 3.4 L (3.5-5.0) g/dL Progress Note-A&P - Time Spent With Patient Total time spent is greater than 50% in coordination of care (as documented) at patient's floor/unit and/or counseling patient: 25 - 35 minutes (1) Respiratory failure with hypoxia Status: Acute Assessment and plan: Improved now on high flow nasal cannula Current Visit: Yes (2) Pneumonia Status: Acute Current Visit: No (3) Chest pain Status: Acute Assessment and plan: Consistent with pleuritic chest pain Current Visit: Yes (4) Hypoxemia Status: Acute Current Visit: No (5) Chronic obstructive pulmonary disease with (acute) exacerbation Status: Acute Current Visit: No (6) History of atrial fibrillation Status: Chronic Current Visit: No (7) Adequate anticoagulation on anticoagulant therapy Status: Chronic Current Visit: No - Assessment and Plan Continue antibiotics. I'll recheck her lab and chest x-ray tomorrow. If she continues to improve clinically as well as is able to maintain a heart rate less than 100 I would be in favor of moving her to the medical floor tomorrow. I don't believe she is stable enough for transfer at this time. Hospital Course Summary Disclaimer: The visit summary below is not to be considered part of the above Progress Note.
[2017-08-28] MEDS: AZITHROMYCIN IV 500 MG in NS 250ml 250 ML IV SCH (14:45)
[2017-08-28] MEDS: SIMVASTATIN 20 MG TABLET PO SCH (20:11)
[2017-08-29] MEDS: SOTALOL 80 MG TABLET PO SCH ×2 (06:16→17:49)
[2017-08-29] MEDS: PANTOPRAZOLE 40 MG TABLET PO SCH (06:16)
[2017-08-29] MEDS: BUDESONIDE INH.SOLN 0.5mg/2ml NEB AEROSOL SCH ×2 (07:21→19:29)
[2017-08-29] MEDS: ALBUTEROL/IPRATROPIUM 2.5mg-0.5mg/3ml NEB IPPB SCH ×4 (07:21→19:29)
[2017-08-29] MEDS ORDERED: PROMETHAZINE/CODEINE ORAL LIQUID 5ml PO PRN (09:58)
[2017-08-29] MEDS ORDERED: MENTHOL COUGH DROPS (RICOLA) MM PRN (09:58)
--- NOTE | 2017-08-29 10:04 | Progress Note ---
- Date 08/29/17 Subjective: F/U: Pneumonia, Acute respiratory failure requiring BiPAP, COPD with acute exacerbation Covering for Dr Guzman Feeling 'better.' Breathing making gains. Still SOA at rest, but maintaining on O2 by nasal canula. Very winded with activities. Cough problematic-producing thick sputum, yellow. No nasal congestion, but feels dry. Eating well. No nausea. Denies mouth pain. Had large stool yesterday. No f/c. Strength decreased-weak and winded with activities. Objective Vital signs: Temperature 97.7 F 08/29/17 07:50 Pulse Rate 78 08/29/17 08:00 Respiratory Rate 20 08/29/17 07:50 Blood Pressure 135/63 08/29/17 07:50 Pulse Oximetry 93 08/29/17 07:50 Height/Weight/BMI: Height 1.65 m Weight 74.4 kg Body Mass Index 26.4 - Constitutional Present: mild distress, well nourished, well developed, average body habitus, cooperative - Routine HEENT Exam Head: Present: normocephalic, atraumatic Eye: Present: EOMI, PERRL, normal accommodation. Absent: conjunctival icterus - Routine Respiratory Exam Present: decreased breath sounds, respiratory distress, distant breath sounds, diminished air movement Comments: Pursed lip breathing at rest. - Routine Cardiovascular Exam Present: RRR, no murmur - Routine Abdominal Exam Present: soft, non distended, non tender. Absent: normoactive bowel sounds ( decreased) - Routine Extremities Exam Present: edema (+1 BLE), pulses intact. Absent: cyanosis, clubbing - Routine Musculoskeletal Exam Musculoskeletal: Present: no clubbing or cyanosis - Routine Skin Exam Present: dry, warm - Routine Neurological Exam Present: alert, oriented X3, CN II-XII intact, moving all extremities, vision grossly intact, hearing grossly intact, normal speech. Absent: motor deficit, altered mental status - Routine Psychiatric Exam Present: normal affect, normal thought process, cooperative Results - Labs CBC & Chem 7: 08/28/17 04:33 08/28/17 04:33 Assessment and Plan (1) Respiratory failure with hypoxia Current visit: Yes Status: Acute (2) Chronic obstructive pulmonary disease with (acute) exacerbation Current visit: No Status: Acute (3) Pneumonia Current visit: No Status: Acute Assessment and Plan: Assessment Pneumonia Acute respiratory failure requiring BiPAP COPD with acute exacerbation Leukocytosis Hypokalemia (Not POA) Severe pulmonary hypertension Dyslipidemia GERD Afib - maintained in NSR with sotolol Anticoagulation with Pradaxa Plan - Covering for Dr Guzman Continue with levofloxacin for coverage of pneumonia Continue neb treatments of DuoNeb and budesonide. Will add acapella to help loosen secretions. Nasal saline to decrease nasal dryness secondary to O2. Ricola and Phenergan with codeine prn cough. Oral potassium 20 mEq po x1 as potassium low. Recheck BMP in am secondary to hypokalemia. Repeat CBC in am due to leukocytosis. Medically stable for transfer to floor on tele. Case discussed with CCU nursing and Dr Hernández (last night). Time spent with patient care 35 minutes. DVT Prophylaxis: Pradaxa GI Prophylaxis: Protonix Resuscitation Status: Full Code - Time spent with patient Time with patient PN: 35 minutes - Physician Narrative Physician: Rashi Licea MD Narrative: Date: 08/29/17 Time: 09 Hospital Course Summary Disclaimer: The visit summary below is not to be considered part of the above Progress Note. Hospital Course: 08/29/[address] Guzman Improving gradually. Maintaining O2 sats on NC. Still very dyspneic. Continue with levofloxacin for coverage of pneumonia Continue neb treatments of DuoNeb and budesonide. Will add acapella to help loosen secretions. Nasal saline to decrease nasal dryness secondary to O2. Ricola and Phenergan with codeine prn cough. Oral potassium 20 mEq po x1 as potassium low. Recheck BMP in am secondary to hypokalemia. Repeat CBC in am due to leukocytosis. Medically stable for transfer to floor on tele.
[2017-08-29] MEDS: SALINE 0.65% NASAL SPRAY 44 ML BOTTLE EA NOSTRIL SCH ×4 (13:08→20:25)
[2017-08-29] MEDS: LEVOFLOXACIN PB 750 MG/150 ML BAG IV SCH (13:15)
[2017-08-29] MEDS: SALINE FLUSH 10ml SYRINGE IVF PRN ×2 (14:25→15:52)
[2017-08-29] MEDS: MORPHINE SULFATE 4mg INJECTION IVP PRN (15:52)
[2017-08-29] MEDS: SIMVASTATIN 20 MG TABLET PO SCH (20:25)
[2017-08-29] MEDS: ACETAMINOPHEN 325 MG TABLET PO PRN (21:50)
[2017-08-30] MEDS: PANTOPRAZOLE 40 MG TABLET PO SCH (06:27)
[2017-08-30] MEDS: SOTALOL 80 MG TABLET PO SCH ×2 (06:27→17:23)
[2017-08-30] MEDS: ACETAMINOPHEN 325 MG TABLET PO PRN ×2 (06:27→21:34)
[2017-08-30] MEDS: BUDESONIDE INH.SOLN 0.5mg/2ml NEB AEROSOL SCH ×2 (07:50→18:45)
[2017-08-30] MEDS: ALBUTEROL/IPRATROPIUM 2.5mg-0.5mg/3ml NEB IPPB SCH ×4 (07:50→18:45)
[2017-08-30] MEDS: SALINE 0.65% NASAL SPRAY 44 ML BOTTLE EA NOSTRIL SCH ×4 (08:27→20:08)
[2017-08-30] MEDS: AMLODIPINE 10 MG TABLET PO SCH (12:27)
--- NOTE | 2017-08-30 12:29 | Progress Note ---
- Date 08/30/17 Subjective: F/U: Pneumonia, Acute respiratory failure requiring BiPAP, COPD with acute exacerbation Covering for Dr Guzman Slow gains. Breathing comfortable at rest, but winds readily with any activity. Some cough, slight sputum. Chest congestion decreasing. Eating well without nausea or ab pain. Bowels moving. Urine status stable. HR with elevation yesterday. No f/c. Objective Vital signs: Temperature 98.3 F 08/30/17 07:20 Pulse Rate 112 H 08/30/17 08:00 Respiratory Rate 18 08/30/17 10:34 Blood Pressure 155/98 H 08/30/17 07:20 Pulse Oximetry 95 08/30/17 07:20 Height/Weight/BMI: Height 1.65 m Weight 74.3 kg Body Mass Index 26.4 - Constitutional Present: well nourished, well developed, average body habitus, cooperative. Absent: agitated, somnolent - Routine HEENT Exam Head: Present: normocephalic, atraumatic Eye: Present: EOMI, PERRL, normal accommodation ENT: Present: mucous membranes moist - Routine Respiratory Exam Present: decreased breath sounds, distant breath sounds, diminished air movement. Absent: wheezes, crackles - Routine Cardiovascular Exam Present: RRR, no murmur - Routine Extremities Exam Present: edema (Trace BLE ), pulses intact. Absent: cyanosis, clubbing - Routine Musculoskeletal Exam Musculoskeletal: Present: no clubbing or cyanosis, normal strength - Routine Skin Exam Present: dry, warm - Routine Neurological Exam Present: alert, oriented X3, CN II-XII intact, moving all extremities, vision grossly intact, hearing grossly intact, normal speech. Absent: motor deficit, altered mental status - Routine Psychiatric Exam Present: normal affect, normal thought process, cooperative Results - Labs CBC & Chem 7: 08/30/17 04:33 08/30/17 04:33 Assessment and Plan (1) Respiratory failure with hypoxia Current visit: Yes Status: Acute (2) Chronic obstructive pulmonary disease with (acute) exacerbation Current visit: No Status: Acute (3) Pneumonia Current visit: No Status: Acute Assessment and Plan: Assessment Severe Sepsis Syndrome (POA) - Secondary to pneumonia - resolved Pneumonia Acute on chronic respiratory failure requiring BiPAP COPD with acute exacerbation Leukocytosis Hypokalemia (Not POA) Severe pulmonary hypertension Dyslipidemia GERD Afib - maintained in NSR with Sotalol Anticoagulation with Pradaxa Pulmonary debility Plan - Covering for Dr Guzman Continue with levofloxacin for coverage of pneumonia, of note today is last day that has been ordered. Dr Guzman to reassess antibiotic therapy on his return tomorrow. Continue neb treatments of DuoNeb, budesonide and acapella. Potassium decreased to 3.4 today with magnesium normal at 2.1. Will give oral potassium 20 mEq with lunch and evening meal today. Blood pressure showing elevation, severe sepsis resolved. Will restart home Norvasc 10mg daily today. PT/OT consult placed for tomorrow (Thursday) due to pulmonary debility. Recheck CXR tomorrow for follow up of infiltrate. Recheck BMP in am secondary to hypokalemia. Repeat CBC in am due to resolving leukocytosis/sepsis. Anticipate Dr Guzman's return tomorrow. Time spent with patient care 35 minutes. DVT Prophylaxis: Pradaxa GI Prophylaxis: Protonix Resuscitation Status: Full Code - Physician Narrative Narrative: Date: 08/30/17 Time: 1226 Hospital Course Summary Disclaimer: The visit summary below is not to be considered part of the above Progress Note. Hospital Course: 08/29/[address] Guzman Improving gradually. Maintaining O2 sats on NC. Still very dyspneic. Continue with levofloxacin for coverage of pneumonia Continue neb treatments of DuoNeb and budesonide. Will add acapella to help loosen secretions. Nasal saline to decrease nasal dryness secondary to O2. Add Ricola and Phenergan with codeine prn cough. Oral potassium 20 mEq po x1 as potassium low. Recheck BMP in am secondary to hypokalemia. Repeat CBC in am due to leukocytosis. Medically stable for transfer to floor on tele. 08/30/[address] Guzman Continue with levofloxacin for coverage of pneumonia, of note today is last day that has been ordered. Dr Guzman to reassess antibiotic therapy on his return tomorrow. Continue neb treatments of DuoNeb, budesonide and acapella. Potassium decreased to 3.4 today with magnesium normal at 2.1. Will give oral potassium 20 mEq with lunch and evening meal today. Blood pressure showing elevation, severe sepsis resolved. Will restart home Norvasc 10mg daily today. PT/OT consult placed for tomorrow (Thursday) due to pulmonary debility. Recheck CXR tomorrow for follow up of infiltrate. Recheck BMP in am secondary to hypokalemia. Repeat CBC in am due to resolving leukocytosis/sepsis. Anticipate Dr Guzman's return tomorrow.
[2017-08-30] MEDS: LEVOFLOXACIN PB 750 MG/150 ML BAG IV SCH (14:13)
[2017-08-30] MEDS: SIMVASTATIN 20 MG TABLET PO SCH (20:08)
[2017-08-31] MEDS: PANTOPRAZOLE 40 MG TABLET PO SCH (06:35)
[2017-08-31] MEDS: SOTALOL 80 MG TABLET PO SCH ×2 (06:35→17:09)
[2017-08-31] MEDS: ALBUTEROL/IPRATROPIUM 2.5mg-0.5mg/3ml NEB IPPB SCH ×4 (07:06→19:08)
[2017-08-31] MEDS: BUDESONIDE INH.SOLN 0.5mg/2ml NEB AEROSOL SCH ×2 (07:06→19:08)
[2017-08-31] MEDS: CALCIUM CARBONATE 600 MG TABLET PO SCH (08:45)
[2017-08-31] MEDS: ASCORBIC ACID 500 MG TABLET PO SCH (08:46)
[2017-08-31] MEDS: ACETAMINOPHEN 325 MG TABLET PO PRN ×2 (08:46→21:05)
[2017-08-31] MEDS: AMLODIPINE 10 MG TABLET PO SCH (08:46)
[2017-08-31] MEDS: SALINE 0.65% NASAL SPRAY 44 ML BOTTLE EA NOSTRIL SCH ×4 (08:47→21:07)
--- NOTE | 2017-08-31 09:27 | XRay Report ---
Indication: F/U infiltrate PROCEDURE: XR chest 2V: Encounter: Initial Comparison: 08/28/2017 Findings: There is a persistent, perhaps slightly improved pleural-based opacity in the lateral right mid chest with some blunting of the right costophrenic angle. The overall heart size is normal. There is a probable small right pleural effusion. The left lung is clear. Trachea is midline. There is moderate calcification of the transverse thoracic aorta with mild tortuosity of the descending thoracic aorta. Impression: Small persistent right-sided pleural effusion and persistent lateral pleural-based opacity without lobar consolidation. .
--- NOTE | 2017-08-31 18:50 | Internal Med Progress Note ---
Internal Medicine Subjective Patient was seen and examined in her room. Radiology lab and notes from this past weekend reviewed. Roseline seems much improved from admission. She still has considerable desaturations with ambulation. In reviewing with nursing, they note that she required 7 L of oxygen by nasal cannula in order to maintain her sats above 88. At home she was on 3-1/2 L of oxygen. I will have her ambulate again tomorrow and have the nursing staff check her O2 sat. Exam Vital Signs: Temperature 98.9 F 08/31/17 15:50 Pulse Rate 102 H 08/31/17 17:09 Respiratory Rate 18 08/31/17 15:50 Blood Pressure 139/73 08/31/17 15:50 Pulse Oximetry 92 08/31/17 15:50 Telemetry Rhythm: Sinus Tachycardia (with occasional multifocal atrial tachycardia) Height/Weight/BMI: Height 5 ft 5 in Weight 75.5 kg Body Mass Index 26.4 - Constitutional Present: no acute distress, cooperative - Routine HEENT Exam Head: Present: normocephalic, atraumatic Eye: Present: EOMI, PERRL, conjunctivae pink. Absent: conjunctival icterus, scleral injection ENT: Present: mucous membranes moist, oropharynx clear, nares patent - Routine Neck Exam Present: supple. Absent: JVD, lymphadenopathy, thyromegaly - Routine Chest/Breast/Axilla Exam Chest wall: Absent: tenderness Axillae: Absent: lymphadenopathy - Routine Respiratory Exam Present: accessory muscle use, CTA bilaterally, distant breath sounds - Routine Cardiovascular Exam Present: tachycardia (with occasional PVC) - Routine Abdominal Exam Present: soft, normoactive bowel sounds, non distended, non tender - Routine Extremities Exam Present: no edema, amputation. Absent: cyanosis, clubbing - Routine Skin Exam Present: intact. Absent: cyanosis, erythema, pallor, mottling, petechiae, urticaria, jaundice - Routine Neurological Exam Present: alert, oriented X3, CN II-XII intact - Routine Psychiatric Exam Present: normal affect, cooperative, good insight, good judgment. Absent: depressed, anxious Internal Medicine Results - Labs CBC & Chem 7: 08/30/17 04:33 08/30/17 04:33 Progress Note-A&P - Time Spent With Patient Total time spent is greater than 50% in coordination of care (as documented) at patient's floor/unit and/or counseling patient: 25 - 35 minutes (1) Respiratory failure with hypoxia Status: Acute Assessment and plan: Roseline appears to be improving daily. She is still requiring significant O2 with ambulation. Current Visit: Yes (2) Pneumonia Status: Acute Assessment and plan: Improved Current Visit: No (3) Chest pain Status: Resolved Assessment and plan: Consistent with pleuritic chest pain Current Visit: Yes (4) Hypoxemia Status: Acute Current Visit: No (5) Chronic obstructive pulmonary disease with (acute) exacerbation Status: Acute Current Visit: No (6) History of atrial fibrillation Status: Chronic Current Visit: No (7) Adequate anticoagulation on anticoagulant therapy Status: Chronic Current Visit: No - Assessment and Plan I will have Roseline ambulate in the [place]iron tomorrow and monitor her O2 sat. Hospital Course Summary Disclaimer: The visit summary below is not to be considered part of the above Progress Note. Hospital Course: 08/29/[address] Guzman Improving gradually. Maintaining O2 sats on NC. Still very dyspneic. Continue with levofloxacin for coverage of pneumonia Continue neb treatments of DuoNeb and budesonide. Will add acapella to help loosen secretions. Nasal saline to decrease nasal dryness secondary to O2. Add Ricola and Phenergan with codeine prn cough. Oral potassium 20 mEq po x1 as potassium low. Recheck BMP in am secondary to hypokalemia. Repeat CBC in am due to leukocytosis. Medically stable for transfer to floor on tele. 08/30/[address] Guzman Continue with levofloxacin for coverage of pneumonia, of note today is last day that has been ordered. Dr Guzman to reassess antibiotic therapy on his return tomorrow. Continue neb treatments of DuoNeb, budesonide and acapella. Potassium decreased to 3.4 today with magnesium normal at 2.1. Will give oral potassium 20 mEq with lunch and evening meal today. Blood pressure showing elevation, severe sepsis resolved. Will restart home Norvasc 10mg daily today. PT/OT consult placed for tomorrow (Thursday) due to pulmonary debility. Recheck CXR tomorrow for follow up of infiltrate. Recheck BMP in am secondary to hypokalemia. Repeat CBC in am due to resolving leukocytosis/sepsis. Anticipate Dr Guzman's return tomorrow.
[2017-08-31] MEDS: SIMVASTATIN 20 MG TABLET PO SCH (21:05)
[2017-09-01] MEDS: PANTOPRAZOLE 40 MG TABLET PO SCH (05:56)
[2017-09-01] MEDS: SOTALOL 80 MG TABLET PO SCH ×2 (05:56→17:36)
[2017-09-01] MEDS: ACETAMINOPHEN 325 MG TABLET PO PRN (05:59)
[2017-09-01] MEDS: SALINE 0.65% NASAL SPRAY 44 ML BOTTLE EA NOSTRIL SCH ×4 (09:10→20:28)
[2017-09-01] MEDS: CALCIUM CARBONATE 600 MG TABLET PO SCH (09:10)
[2017-09-01] MEDS: ASCORBIC ACID 500 MG TABLET PO SCH (09:10)
[2017-09-01] MEDS: AMLODIPINE 10 MG TABLET PO SCH (09:11)
[2017-09-01] MEDS: ALBUTEROL/IPRATROPIUM 2.5mg-0.5mg/3ml NEB IPPB SCH ×4 (09:14→21:14)
[2017-09-01] MEDS: BUDESONIDE INH.SOLN 0.5mg/2ml NEB AEROSOL SCH ×2 (09:14→21:14)
--- NOTE | 2017-09-01 11:52 | XRay Report ---
INDICATION: right sided pneumonia with hypoxia PROCEDURE: CHEST 2-VIEWS UPRIGHT (PA & LAT) Encounter: Initial COMPARISON: August 31, 2017 FINDINGS: Stable trace pleural effusions and lower lobe airspace disease. Slight worsening in edema noted in the left lower lung field. No pneumothorax. Heart size and mediastinal contours are stable. Impression: Stable basilar pneumonia with slight increase in mild edema. .
[2017-09-01] MEDS ORDERED: FUROSEMIDE 20 MG/2 ML INJECTION IVP ONE (12:41)
--- NOTE | 2017-09-01 16:12 | Internal Med Progress Note ---
Internal Medicine Subjective Patient was seen and examined in her room. She walked with RT today, but continues to drop her O2 sat requiring up to 7 L. I gave her some potassium and lasix today in an effort to diurese her to the point that she could go home only requiring her usual 3.5-4 liters. Exam Vital Signs: Temperature 98.0 F 09/01/17 15:14 Pulse Rate 112 H 09/01/17 15:14 Respiratory Rate 22 09/01/17 15:14 Blood Pressure 137/80 09/01/17 15:14 Pulse Oximetry 95 09/01/17 15:14 Height/Weight/BMI: Height 5 ft 5 in Weight 74.4 kg Body Mass Index 26.4 Comments: episodic Multifocal Atrial Tachycardia, then NSR. - Constitutional Present: no acute distress, cooperative - Routine HEENT Exam Head: Present: normocephalic, atraumatic Eye: Present: PERRL, conjunctivae pink. Absent: conjunctival icterus, scleral injection ENT: Present: mucous membranes moist, oropharynx clear - Routine Neck Exam Present: supple. Absent: JVD, carotid bruit - Routine Chest/Breast/Axilla Exam Chest wall: Absent: tenderness Axillae: Absent: lymphadenopathy - Routine Respiratory Exam Present: accessory muscle use, distant breath sounds. Absent: respiratory distress - Routine Cardiovascular Exam Present: RRR Comments: with occasional MAT - Routine Abdominal Exam Present: soft, normoactive bowel sounds, non distended, non tender - Routine Extremities Exam Present: amputation. Absent: cyanosis, clubbing, edema - Routine Skin Exam Present: intact. Absent: cyanosis, erythema, mottling, petechiae, urticaria, jaundice - Routine Neurological Exam Present: alert, oriented X3, CN II-XII intact - Routine Psychiatric Exam Present: normal affect, normal thought process, cooperative, good insight, good judgment Internal Medicine Results - Labs CBC & Chem 7: 08/30/17 04:33 08/30/17 04:33 Progress Note-A&P - Time Spent With Patient Total time spent is greater than 50% in coordination of care (as documented) at patient's floor/unit and/or counseling patient: 25 - 35 minutes (1) Respiratory failure with hypoxia Status: Acute Assessment and plan: Roseline appears to be improving daily. She is still requiring significant O2 with ambulation. Current Visit: Yes (2) Pneumonia Status: Acute Assessment and plan: Improved Current Visit: No (3) Chest pain Status: Resolved Assessment and plan: Consistent with pleuritic chest pain Current Visit: Yes (4) Hypoxemia Status: Acute Current Visit: No (5) Chronic obstructive pulmonary disease with (acute) exacerbation Status: Acute Current Visit: No (6) History of atrial fibrillation Status: Chronic Current Visit: No (7) Adequate anticoagulation on anticoagulant therapy Status: Chronic Current Visit: No (8) Multifocal atrial tachycardia Status: Acute Current Visit: Yes - Assessment and Plan When she can ambulate in the [place] and maintain her SaO2 >88% on no more than 4 L she can be discharged to home. Hospital Course Summary Disclaimer: The visit summary below is not to be considered part of the above Progress Note. Hospital Course: 08/29/[address] Guzman Improving gradually. Maintaining O2 sats on NC. Still very dyspneic. Continue with levofloxacin for coverage of pneumonia Continue neb treatments of DuoNeb and budesonide. Will add acapella to help loosen secretions. Nasal saline to decrease nasal dryness secondary to O2. Add Ricola and Phenergan with codeine prn cough. Oral potassium 20 mEq po x1 as potassium low. Recheck BMP in am secondary to hypokalemia. Repeat CBC in am due to leukocytosis. Medically stable for transfer to floor on tele. 08/30/[address] Guzman Continue with levofloxacin for coverage of pneumonia, of note today is last day that has been ordered. Dr Guzman to reassess antibiotic therapy on his return tomorrow. Continue neb treatments of DuoNeb, budesonide and acapella. Potassium decreased to 3.4 today with magnesium normal at 2.1. Will give oral potassium 20 mEq with lunch and evening meal today. Blood pressure showing elevation, severe sepsis resolved. Will restart home Norvasc 10mg daily today. PT/OT consult placed for tomorrow (Thursday) due to pulmonary debility. Recheck CXR tomorrow for follow up of infiltrate. Recheck BMP in am secondary to hypokalemia. Repeat CBC in am due to resolving leukocytosis/sepsis. Anticipate Dr Guzman's return tomorrow.
[2017-09-01] MEDS: SIMVASTATIN 20 MG TABLET PO SCH (20:28)
[2017-09-02] MEDS: ACETAMINOPHEN 325 MG TABLET PO PRN (01:46)
[2017-09-02] MEDS: PANTOPRAZOLE 40 MG TABLET PO SCH (05:34)
[2017-09-02] MEDS: SOTALOL 80 MG TABLET PO SCH (05:34)
[2017-09-02] MEDS: ALBUTEROL/IPRATROPIUM 2.5mg-0.5mg/3ml NEB IPPB SCH ×2 (07:45→10:30)
[2017-09-02] MEDS: BUDESONIDE INH.SOLN 0.5mg/2ml NEB AEROSOL SCH (07:45)
[2017-09-02] MEDS: ASCORBIC ACID 500 MG TABLET PO SCH (10:18)
[2017-09-02] MEDS: AMLODIPINE 10 MG TABLET PO SCH (10:18)
[2017-09-02] MEDS: CALCIUM CARBONATE 600 MG TABLET PO SCH (10:19)
[2017-09-02] MEDS: SALINE 0.65% NASAL SPRAY 44 ML BOTTLE EA NOSTRIL SCH (10:19)
[2017-09-02 10:42] VITALS: RESP 20
[2017-09-02 11:02] VITALS: BP 146/81; TEMP 97.1; O2SAT 92
[2017-09-02 11:17] VITALS: PULSE 88
--- NOTE | 2017-09-02 13:03 | Progress Note ---
- Date 09/02/17 Subjective: F/U: Pneumonia, Acute respiratory failure requiring BiPAP, COPD with acute exacerbation Covering for Dr Guzman Doing better today. Walked with therapy and maintaining saturations much better. Eating well. No f/c. Objective Vital signs: Temperature 97.1 F 09/02/17 11:01 Pulse Rate 88 09/02/17 11:13 Respiratory Rate 20 09/02/17 10:30 Blood Pressure 146/81 H 09/02/17 11:01 Pulse Oximetry 92 09/02/17 11:13 Height/Weight/BMI: Height 1.65 m Weight 72.2 kg Body Mass Index 26.4 - Constitutional Present: well nourished, well developed, average body habitus, cooperative - Routine HEENT Exam Head: Present: normocephalic, atraumatic Eye: Present: EOMI, PERRL ENT: Present: mucous membranes moist - Routine Respiratory Exam Present: decreased breath sounds, distant breath sounds, diminished air movement. Absent: respiratory distress - Routine Cardiovascular Exam Present: RRR, no murmur - Routine Abdominal Exam Present: soft, normoactive bowel sounds, non distended, non tender - Routine Extremities Exam Present: pulses intact. Absent: cyanosis, clubbing - Routine Skin Exam Present: intact, dry, warm - Routine Neurological Exam Present: alert, oriented X3, CN II-XII intact, moving all extremities, vision grossly intact, hearing grossly intact, normal speech. Absent: motor deficit, altered mental status - Routine Psychiatric Exam Present: normal affect, normal thought process, cooperative Results - Labs CBC & Chem 7: 08/30/17 04:33 08/30/17 04:33 Assessment and Plan (1) Respiratory failure with hypoxia Current visit: Yes Status: Acute (2) Chronic obstructive pulmonary disease with (acute) exacerbation Current visit: No Status: Acute (3) Pneumonia Current visit: No Status: Acute Assessment and Plan: Assessment Severe Sepsis Syndrome (POA) - Secondary to pneumonia - resolved Pneumonia Acute on chronic respiratory failure requiring BiPAP COPD with acute exacerbation Leukocytosis Hypokalemia (Not POA) Severe pulmonary hypertension Dyslipidemia GERD Afib - maintained in NSR with Sotalol Anticoagulation with Pradaxa Pulmonary debility Plan - Covering for Dr Guzman Clinically to baseline. Maintaining saturations on baseline O2. Eating well. Afebrile. Vitals stable. Will discharge to home in stable condition. Home Health arrangements made. Use Acapella QID for 1 week, then as needed. F/U with Dr Guzman in 1 week. See orders for details. Case discussed with CM. Time spent with patient care and discharger greater than 30 minutes. DVT Prophylaxis: Pradaxa Resuscitation Status: Full Code - Physician Narrative Physician: Rashi Licea MD Narrative: Date: 09/02/17 Time: 1254 Hospital Course Summary Disclaimer: The visit summary below is not to be considered part of the above Progress Note. Hospital Course: 08/26/17 Admit to CCU for Respiratory failure requiring BiPAP for support. Azithromycin for antimicrobial coverage. Levaquin given in ED. 08/27/17 Roseline seems to have improved nicely overnight. She is now on high flow nasal cannula and tolerating it well. Her heart rate is below 100, sinus, with frequent PVCs. She still has the right-sided chest pain which she likens to her previous bouts of pleurisy. She still short of breath with cough. No abdominal pain. Her chest x-ray looks worse from the day before and her white blood cell count went up slightly to 20,000. If Roseline continues to improve at this rate, I would move her to the medical floor tomorrow. 08/28/17 Roseline appears to have improved a little bit more. She did have episodes of sinus tachycardia overnight and again this morning. She is now on high flow nasal cannula and tolerating it well. Her chest x-ray appears slightly improved from the day before. Continue antibiotics. I'll recheck her lab and chest x-ray tomorrow. If she continues to improve clinically as well as is able to maintain a heart rate less than 100 I would be in favor of moving her to the medical floor tomorrow. I don't believe she is stable enough for transfer at this time. Her white count is coming down for the first time, it is now down to 13,000 she was able to sit up to a chair but she becomes quite dyspneic with any movements. 08/29/[address] Guzman Improving gradually. Maintaining O2 sats on NC. Still very dyspneic. Continue with levofloxacin for coverage of pneumonia Continue neb treatments of DuoNeb and budesonide. Will add acapella to help loosen secretions. Nasal saline to decrease nasal dryness secondary to O2. Add Ricola and Phenergan with codeine prn cough. Oral potassium 20 mEq po x1 as potassium low. Recheck BMP in am secondary to hypokalemia. Repeat CBC in am due to leukocytosis. Medically stable for transfer to floor on tele. 08/30/[address] Guzman Continue with levofloxacin for coverage of pneumonia, of note today is last day that has been ordered. Dr Guzman to reassess antibiotic therapy on his return tomorrow. Continue neb treatments of DuoNeb, budesonide and acapella. Potassium decreased to 3.4 today with magnesium normal at 2.1. Will give oral potassium 20 mEq with lunch and evening meal today. Blood pressure showing elevation, severe sepsis resolved. Will restart home Norvasc 10mg daily today. PT/OT consult placed for tomorrow (Thursday) due to pulmonary debility. Recheck CXR tomorrow for follow up of infiltrate. Recheck BMP in am secondary to hypokalemia. Repeat CBC in am due to resolving leukocytosis/sepsis. Anticipate Dr Guzman's return tomorrow. 08/31/17 Radiology lab and notes from this past weekend reviewed. Roseline seems much improved from admission. She still has considerable desaturations with ambulation. In reviewing with nursing, they note that she required 7 L of oxygen by nasal cannula in order to maintain her sats above 88. At home she was on 3-1/2 L of oxygen. I will have her ambulate again tomorrow and have the nursing staff check her O2 sat. 09/01/17 She walked with RT today, but continues to drop her O2 sat requiring up to 7 L. I gave her some potassium and Lasix today in an effort to diurese her to the point that she could go home only requiring her usual 3.5-4 liters. 09/02/[address] Guzman Clinically to baseline. Maintaining saturations on baseline O2. Eating well. Afebrile. Vitals stable. Will discharge to home in stable condition. Home Health arrangements made. Use Acapella QID for 1 week, then as needed. F/U with Dr Guzman in 1 week. See orders for details.
--- NOTE | 2017-09-02 13:41 | Discharge Summary ---
Discharge Information Date of admission: 08/26/17 13:12 Anticipated date of discharge: 09/02/17 Attending Physician: Flynn Guzman DO Primary care physician: Flynn Guzman DO - Discharge Diagnosis (1) Respiratory failure with hypoxia Status: Acute (2) Chronic obstructive pulmonary disease with (acute) exacerbation Status: Acute (3) Pneumonia Status: Acute Discharge diagnosis Severe Sepsis Syndrome (POA) - Secondary to pneumonia - resolved Associated conditions and complications Pneumonia Acute on chronic respiratory failure requiring BiPAP COPD with acute exacerbation Leukocytosis Hypokalemia (Not POA) Severe pulmonary hypertension Dyslipidemia GERD Afib - maintained in NSR with Sotalol Anticoagulation with Pradaxa Pulmonary debility - Laboratory Labs: Admit Lab 08/26/17 11:00 WBC 19.2 H Hgb 13.7 Hct 44.4 Plt Count 206 Neutrophils % (Manual) 85.0 H Band Neutrophils % 9.0 H Lymphocytes % (Manual) 1.0 L Monocytes % (Manual) 5.0 Admit Lab 08/26/17 08/26/17 11:00 12:57 Sodium 148 H Potassium 4.1 Chloride 99 Carbon Dioxide 36 H Anion Gap 13 BUN 13.0 Creatinine 0.6 L GFR Calculation 97 BUN/Creatinine Ratio 22 Glucose 131 H Calculated Osmolality 286 H Calcium 10.2 Total Bilirubin 0.70 AST 20 ALT 17 Alkaline Phosphatase 63 Troponin I < 0.012 NT-Pro-B Natriuret Pep 265 H Total Protein 7.8 Albumin 4.8 Globulin 3.0 Albumin/Globulin Ratio 1.6 Plasma Lactate 1.5 08/30/17 04:33 08/30/17 04:33 - Radiology Radiology: Date of Exam: 08/26/17 Type of Exam: XR chest 1V Findings: Emphysema and chronic interstitial opacities. Worsening airspace disease in the right midlung. Possible trace left effusion. No pneumothorax. Heart size and mediastinal contours are stable. Pulmonary vascularity is stable. Impression: Developing right midlung infiltrate could represent pneumonia. Date of Exam: 08/27/17 Type of Exam: XR chest 1V Findings: Worsening airspace consolidation in the right upper lobe along the minor fissure. Hazy right lower lobe airspace disease is unchanged. Emphysema. No pneumothorax. Small right effusion. Heart size and mediastinal contours are stable. Pulmonary vascularity is unchanged. Impression: Increasing right upper lobe consolidation. Date of Exam: 08/28/17 Type of Exam: XR chest 1V Findings: Airspace consolidation in the peripheral right upper lobe is slightly improved. Hyperinflation and emphysematous changes are again noted. Mild right lower lobe airspace disease is stable. Trace right effusion. No pneumothorax. Cardiomediastinal contours and pulmonary vascularity are stable. Impression: Improving right-sided pneumonia. Date of Exam: 08/31/17 Type of Exam: XR chest 2V Findings: There is a persistent, perhaps slightly improved pleural-based opacity in the lateral right mid chest with some blunting of the right costophrenic angle. The overall heart size is normal. There is a probable small right pleural effusion. The left lung is clear. Trachea is midline. There is moderate calcification of the transverse thoracic aorta with mild tortuosity of the descending thoracic aorta. Impression: Small persistent right-sided pleural effusion and persistent lateral pleural-based opacity without lobar consolidation. Date of Exam: 09/01/17 Type of Exam: XR chest 2V FINDINGS: Stable trace pleural effusions and lower lobe airspace disease. Slight worsening in edema noted in the left lower lung field. No pneumothorax. Heart size and mediastinal contours are stable. Impression: Stable basilar pneumonia with slight increase in mild edema. History of Present Illness HPI: Roseline Morrow very pleasant 76-year-old white female. She presented to the emergency room with new onset chest pain starting this morning about 8:30 while she was at home. She also had increasing shortness of breath. Upon arrival to the ER, she was tachypnea And complaining of right sided chest pain that radiated to the sternum. Her troponin was negligible. The d-dimer was negative. She has also been on Pradaxa twice daily for atrial fibrillation. She has significant COPD and has been hospitalized twice in the last 6 months for acute exacerbations of COPD with hypoxemia. She is on BiPAP at home at night and oxygen during the day. For complete details of the H&P refer to that document. Objective Vital signs: Temperature 97.1 F 09/02/17 11:01 Pulse Rate 88 09/02/17 11:13 Respiratory Rate 20 09/02/17 10:30 Blood Pressure 146/81 H 09/02/17 11:01 Pulse Oximetry 92 09/02/17 11:13 Height/Weight/BMI: Height 1.65 m Weight 72.2 kg Body Mass Index 26.4 Hospital Course This is a general summary of the patient's hospital course. For more details refer to the complete medical record. Hospital course: 08/26/17 Admit to CCU for Respiratory failure requiring BiPAP for support. Azithromycin for antimicrobial coverage. Levaquin given in ED. 08/27/17 Roseline seems to have improved nicely overnight. She is now on high flow nasal cannula and tolerating it well. Her heart rate is below 100, sinus, with frequent PVCs. She still has the right-sided chest pain which she likens to her previous bouts of pleurisy. She still short of breath with cough. No abdominal pain. Her chest x-ray looks worse from the day before and her white blood cell count went up slightly to 20,000. If Roseline continues to improve at this rate, I would move her to the medical floor tomorrow. 08/28/17 Roseline appears to have improved a little bit more. She did have episodes of sinus tachycardia overnight and again this morning. She is now on high flow nasal cannula and tolerating it well. Her chest x-ray appears slightly improved from the day before. Continue antibiotics. I'll recheck her lab and chest x-ray tomorrow. If she continues to improve clinically as well as is able to maintain a heart rate less than 100 I would be in favor of moving her to the medical floor tomorrow. I don't believe she is stable enough for transfer at this time. Her white count is coming down for the first time, it is now down to 13,000 she was able to sit up to a chair but she becomes quite dyspneic with any movements. 08/29/[address] Guzman Improving gradually. Maintaining O2 sats on NC. Still very dyspneic. Continue with levofloxacin for coverage of pneumonia Continue neb treatments of DuoNeb and budesonide. Will add acapella to help loosen secretions. Nasal saline to decrease nasal dryness secondary to O2. Add Ricola and Phenergan with codeine prn cough. Oral potassium 20 mEq po x1 as potassium low. Recheck BMP in am secondary to hypokalemia. Repeat CBC in am due to leukocytosis. Medically stable for transfer to floor on tele. 08/30/[address] Guzman Continue with levofloxacin for coverage of pneumonia, of note today is last day that has been ordered. Dr Guzman to reassess antibiotic therapy on his return tomorrow. Continue neb treatments of DuoNeb, budesonide and acapella. Potassium decreased to 3.4 today with magnesium normal at 2.1. Will give oral potassium 20 mEq with lunch and evening meal today. Blood pressure showing elevation, severe sepsis resolved. Will restart home Norvasc 10mg daily today. PT/OT consult placed for tomorrow (Thursday) due to pulmonary debility. Recheck CXR tomorrow for follow up of infiltrate. Recheck BMP in am secondary to hypokalemia. Repeat CBC in am due to resolving leukocytosis/sepsis. Anticipate Dr Guzman's return tomorrow. 08/31/17 Radiology lab and notes from this past weekend reviewed. Roseline seems much improved from admission. She still has considerable desaturations with ambulation. In reviewing with nursing, they note that she required 7 L of oxygen by nasal cannula in order to maintain her sats above 88. At home she was on 3-1/2 L of oxygen. I will have her ambulate again tomorrow and have the nursing staff check her O2 sat. 09/01/17 She walked with RT today, but continues to drop her O2 sat requiring up to 7 L. I gave her some potassium and Lasix today in an effort to diurese her to the point that she could go home only requiring her usual 3.5-4 liters. 09/02/[address] Guzman Clinically to baseline. Maintaining saturations on baseline O2. Eating well. Afebrile. Vitals stable. Will discharge to home in stable condition. Home Health arrangements made. Use Acapella QID for 1 week, then as needed. F/U with Dr Guzman in 1 week. See orders for details. Time spent with patient: discharge greater than 30 minutes Resuscitation Status: Full Code Discharge Plan - Discharge Disposition Discharge Date: 09/02/17 Disposition: 86 Home Health Service *Condition: Improved Reason For Visit (Visit label in EMR): sepsis, right middle lobe pneumonia, acute hypoxia - Discharge Medications *Discharge Medications: New RX: Promethazine + Cod Liq [Phenergan + Codeine] 5 ml PO Q6HR PRN #100 ml PRN Reason: Cough RX: Sodium Chloride [Deep Sea] 2 spray EA NOSTRIL QID spray RX: Menthol Cough Drops [Ricola Sf] 1 lozenge MM PRN PRN lozenge PRN Reason: Cough Continue RX: Roflumilast [Daliresp] 500 mcg PO DAILY #0 RX: Zoledronic Acid/Mannitol-Water [Reclast 5 mg/100 ml Solution] 100 ml IV YEARLY #0 RX: Lisinopril [Prinivil] 5 mg PO DAILY RX: Sotalol [Betapace] 40 mg PO BID RX: Vitamin B Complex [Super B-50 Complex] 1 cap PO DAILY RX: Fluticasone/Salmeterol 250/50 [Advair 250-50 Diskus] 1 puff INH BID RX: Dabigatran [Pradaxa] 150 mg PO BID RX: Multivitamin [Multivitamins] 1 cap PO DAILY RX: Calcium Carbonate [Caltrate] 1,200 mg PO DAILY RX: Ascorbate Calcium [Vitamin C] 100 mg PO DAILY RX: Amlodipine Besylate [Norvasc] 10 mg PO DAILY RX: Simvastatin 20 mg PO HS #0 RX: Lansoprazole [Prevacid] 15 mg PO DAILY RX: Albuterol/Ipratropium [Duoneb] 1 unit AEROSOL QID RX: Cholecalciferol (Vitamin D3) [Vitamin D3] 1,000 unit PO DAILY - Discharge Packet/Instructions *Diet: Low sodium *Activity: As tolerated *Pain Management/Treatment: Continue prior home pain medications *Wound Care: N/A Additional Instructions: Use Acapella 4 times a day for 1 week to help decreased congestion, then may use as needed. *Expected Signs/Symptoms: Improvement of brething, strength, and functional status. *Notify Physician if: Temp > 100.4. Increasing cough/congestion. *During Business Hours Contact: Dr Guzman *After Business Hours Contact: Call [facility] and have Dr Guzman contacted. *Pending Lab/Results: No Pending Lab - Referrals/Follow Up *Referrals/Follow Up: Flynn Guzman DO [Primary Care Provider] - 1 Week (Hospital follow up for Pneumonia/Sepsis) - Patient Handouts - Dismissal Complete Discharge Instructions are:: Complete Physician Narrative - Narrative Physician: Rashi Licea MD Attestation Narrative: Date: 09/02/17 Time: [id number] I have independently interviewed and examined patient prior to discharge. See my progress note for details. Medically stable for discharge to home.
== END 2017-09-02 15:20 | disposition home health service (06) | DRG 871 ==
LOC: ED 11:13 → EDHOLD 13:12 → CCU 13:50 → MED 08-29 12:40
PROVIDERS: ADMIT Internal Medicine; ATTEND Internal Medicine